=== PATIENT | female | born 1945 | race Caucasian/White ===

== ENCOUNTER 2020-04-28 22:42 | Emergency (ER) | payer MEDICARE, SELFPAY ==
[2020-04-28 22:55] VITALS: BP 181/83; PULSE 92; RESP 18; TEMP 36.4; O2SAT 98; BMI 32.3
--- NOTE | 2020-04-28 23:18 | W.ED.GENADLT ---
HPI - General Adult General: Chief complaint: Shortness of Breath/Dyspnea Stated complaint: possible sinus inf/ stuffed up/cant breath Time Seen by Provider: 04/28/20 23:09 History of Present Illness: HPI narrative: Is 3 weeks post positive Covid. Now complaining about sinus pressure drainage sore throat. Denies fever chills does nose is very stuffed up MD complaint: Sinus pressure Onset (ago): hour(s) Radiation: non-radiation Severity: moderate Relieving factors: none Associated symptoms: Reports no associated symptoms; Deny chest pain, dyspnea, headache(s), nausea, rash or vomiting Treatments prior to arrival: none Review of Systems Narrative: Was Covid +3 weeks ago. Const: Denies: fever(s), chills or body aches Eyes: Denies: change in vision or blurry vision ENMT: Reports: nasal congestion; Denies: throat pain Card: Denies: chest pain or dyspnea on exertion Resp: Denies: dyspnea, productive cough or non-productive cough GI: Denies: abdominal pain, nausea or vomiting Musc: Denies: extremity pain Skin/Breast: Denies: rash Neuro: Denies: headache(s) Psych: Denies: anxiety or depression Pardeep/Lymph: Denies: easy bruising Physical Exam Const: COMMON NORMALS: no acute distress, average body habitus and patient oriented x3 HENMT: COMMON NORMALS: normocephalic HEAD & SCALP: normal to inspection and normocephalic FACE & SINUS: normal facial exam and sinus tenderness frontal and ethmoid THROAT: posterior oropharynx normal and abnormal tonsil bilateral hypertrophy Eye: COMMON NORMALS: conjunctivae normal GENERAL EYE: appearance normal, both eyes and all related structures CONJUNCTIVA: Yes conjunctivae normal Neck/C-Spine: COMMON NORMALS: no JVD Chest: COMMONS NORMALS: normal inspection of the chest Resp: COMMON NORMALS: normal respiratory effort and clear to auscultation bilaterally AUSCULTATION: clear to auscultation bilaterally Cardio: COMMON NORMALS: no JVD, regular rate and regular rhythm RATE: regular rate RHYTHM: regular rhythm GI: COMMON NORMALS: Normal to inspection, nondistended, normoactive bowel sounds present Extremity: COMMON NORMALS: normal to inspection and full ROM Neuro: COMMON NORMALS: patient oriented x3 Course Vital Signs: Vital signs: Vital Signs Temperature 97.6 F 10/29/20 22:55 Pulse Rate 79 04/28/20 23:44 Respiratory Rate 16 04/28/20 23:44 Blood Pressure 164/78 04/28/20 23:44 Pulse Oximetry 95 04/28/20 23:44 Discharge Plan Discharge Patient Disposition: Home Clinical Impression: Sinusitis Qualifiers: Sinusitis location: ethmoidal Chronicity: acute Recurrence: non-recurrent Qualified Code(s): J01.20 - Acute ethmoidal sinusitis, unspecified Condition: Stable Prescriptions: New Augmentin 875-125 mg tablet 1 tab PO BID 14 Days Qty: 28 RF: 0 prednisone 10 mg tablet 10 mg PO DAILY Qty: 7 RF: 0 Discharge Orders: Discharge Order (Routine); Ordered 04/28/20 Ordered By: Jose Beckford Referrals: Miguel Dale MD [Primary Care Provider] - Discharge Diet: Usual diet Discharge Activity: Resume usual activity Patient Instructions: Acute Bacterial Rhinosinusitis (ED) Activity Restrictions/Additional Instructions: Follow-up with medical provider as directed. Take medications as prescribed. Return to the ER or your medical provider if condition worsens. Please read and understand discharge instructions. If any questions ask please. Your blood sugar might go up 30-40 points for next 7 days while on steroids. Use Afrin nose spray as directed on the label. Discharge Date/Time: 04/28/20 23:43 Coding Level of Care Code ED Home Health Aide for Gerardo Fwd Exam Comprehensive
[2020-04-28 23:38] VITALS: BP 159/88; PULSE 85; RESP 17; O2SAT 95
[2020-04-28] MEDS: oxymetazoline 0.05% Nasal Spray 15 mL 2 SPRAY NOSTRIL-B (23:39)
[2020-04-28] MEDS: predniSONE 20 mg Tablet 40 MG PO (23:39)
[2020-04-28] MEDS: amoxicillin-clav 875-125 mg Tablet 1 TAB PO (23:39)
[2020-04-28 23:44] VITALS: BP 164/78; PULSE 79; RESP 16; O2SAT 95
== END 2020-04-28 23:43 | disposition home or self-care (01) ==
PROVIDERS: Emergency Provider Nurse Practitioner Family; PCP Family Medicine
DX: J01.20 Acute ethmoidal sinusitis, unspecified (principal)
CPT/HCPCS: 12345; 99281; 99283; J7512

== ENCOUNTER 2021-03-20 11:14 | Outpatient (CLI) | payer MEDICARE, SELFPAY ==
--- NOTE | 2021-03-20 11:23 | MM_ITS ---
WS: [id number] RIGHT DIGITAL MAMMOGRAPHY WITH CAD CLINICAL INFORMATION: HX OF BREAST CA;LT MASTECTOMY COMPARISON: TECHNIQUE: 3 views of the right breast were obtained. FINDINGS: Scattered fibroglandular densities of the right breast. Stable punctate calcifications. Vascular calc ification. No suspicious focal mass, asymmetry, calcifications, or architectural distortion. No evidence of mary anne gnancy. MM/[place] [id number] IMPRESSION: BI-RADS: 2-Benign FOLLOW UP: 1 Year Follow-up Recommend return to annual diagnostic mammography.
== END 2021-03-20 11:15 | disposition home or self-care (01) ==
LOC: RADSHAW 11:21
PROVIDERS: PCP Family Medicine; Visit Provider Family Medicine
DX: Z85.3 Personal history of malignant neoplasm of breast (principal); Z90.12 Acquired absence of left breast and nipple
CPT/HCPCS: 77065

== ENCOUNTER 2021-03-31 09:55 | Outpatient (CLI) | payer MEDICARE, SELFPAY ==
--- NOTE | 2021-03-31 10:15 | MR_ITS ---
WS: [id number] MRI NECK WITH CONTRAST TECHNIQUE: Noncontrast axial T1, axial T2 FSE fat sat, coronal T2 fat sat, coronal T1, coronal T1 fat sat, sagittal T2 fat sat, plus contrast enhanced coronal, sagittal, and axial T1 fat sat images obta ined. CLINICAL INFORMATION: JAW PAIN COMPARISON: None. FINDINGS: Chronic lacunar infarct left cerebellum. Normal vascular flow voids at the skull base. Proximal 7th a nd 8th cranial nerves appear normal. Mild mucosal thickening in the paranasal sinuses. Small retentio n cyst left maxillary sinus. Mastoid air cells are well aerated. Prior resection or hypoplasia right parotid gland. Normal left parotid gland. Submandibular glands are normal. Normal parapharyngeal fat. No evidence of supraglottic or glottic mass. Small peripherally enhancing lesion in the left preepig lottic space measuring 6 mm. This can be further evaluated with direct visualization. Normal glottis and subglottic airway. Normal thyroid gland. A few slightly enlarged right level 2 cervical lymph nodes largest measuring 8 x 10 mm along the post erior right submandibular gland and carotid sheath. Additional normal appearing submandibular space l ymph nodes. No pathologic lymphadenopathy in the left neck. Normal bone marrow signal involving the right mandible. Normal thoracic inlet and supraclavicular regions bilaterally. Mild disc bulging cervical spine at C4-C5 and C5-C6. MR/MR orbit face neck wo/w* [id number] IMPRESSION: 1. Enlarged right level 2 cervical lymph nodes along the carotid sheath larges t measuring 8 x 10 mm. This is nonspecific and could be further evaluated with contrast-enhanced neck CT or PET/CT if suspicion for malignancy. 2. Peripheral enhancing T2 hyperintense small nodule in the left preepiglottic space. Recommend further evaluation with direct visualization. 3. Tongue base is normal in appearance. Normal glottis and subglottic airway. 4. 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 Normal left parotid gland. 5. Submandibular glands are normal in appearance. 6. Mild disc bulging C5-C6 and C6-C7 with mild central canal stenosis at C6-C7 . 7. Tiny chronic lacunar infarct left cerebellum. 8. Normal bone marrow signal in the right mandible. 9. Proximal 7th and 8th cranial nerves are normal in appearance.
[2021-03-31] MEDS: gadobenate dimeglumine 20 mL vial IV (11:38)
== END 2021-03-31 09:56 | disposition home or self-care (01) ==
PROVIDERS: PCP Family Medicine; Visit Provider Specialist
DX: R68.84 Jaw pain (principal); I63.9 Cerebral infarction, unspecified; M51.26 Other intervertebral disc displacement, lumbar region; M48.02 Spinal stenosis, cervical region
CPT/HCPCS: 70543; A9577

== ENCOUNTER 2021-04-19 10:43 | Outpatient (CLI) | payer MEDICARE, SELFPAY ==
--- NOTE | 2021-04-19 11:00 | CT_ITS ---
WS: [id number] CT NECK WITH CONTRAST HISTORY: LOCALIZED ENLARGED LYMPH NODES, JAW PAIN TECHNIQUE: Contiguous 5 mm axial images are performed through the neck with intravenous contrast. Sag ittal and coronal reformats are also submitted. All CT scans at [facility] use at least one o f these dose optimization techniques: automated exposure control; mA and/or kV adjustment per patient size (includes targeted exams where dose is matched to clinical indication); or iterative reconstruc tion. CONTRAST: CONTRAST: Visipaque 320; 95 mL IV. DLP: 881.81 mGycm COMPARISON: MRI neck 03/31/2021. Nasopharynx, oropharynx, hypopharynx and larynx are unremarkable. No soft tissue masses or abnormal e nhancement. Torus tubarius and fossa of Rosenmuller and parapharyngeal fat are normal. Small benign cervical chain lymph nodes are identified. The number of lymph nodes is slightly increas ed. The shape is normal. The largest lymph node measures 7 mm and level 2A on the RIGHT. Corresponds to the finding seen on the recent MRI. No adjacent inflammation. These may be benign reactive lymph n odes. Small caliber atrophic heterogeneous RIGHT thyroid. Normal-appearing LEFT thyroid. Submandibular glan ds are normal. Absent RIGHT parotid gland. No history of prior surgery. Suspect surgical removal of t he RIGHT parotid. The LEFT parotid gland is normal. Degenerative spondylitic changes in the mid cervical spine. No fractures. Mild plaque within the intracranial carotid arteries. Small amount of calcified plaque at the bifurca tions along the cervical carotid arteries. Atherosclerosis of the aortic arch. Small benign-appearing prevascular lymph nodes. Visualized paranasal sinuses and mastoid air cells are normal. Lung apices are clear. CT/CT neck w con* [id number] IMPRESSION: 1. Subcentimeter bilateral cervical chain lymph nodes. These lymph nodes are n ot particularly enlarged and the shape is normal. Suspect these are probably mi ldly reactive lymph nodes. 2. RIGHT parotid gland is absent. 3. Moderate atherosclerotic plaque within the visualized aortic arch and carot id arteries.
[2021-04-19 11:31] LABS: Blood Urea Nitrogen 13 mg/dL (8-23)
[2021-04-19] MEDS: iodixanol 320 mg/mL 100mL Btl IV (11:44)
== END 2021-04-19 10:44 | disposition home or self-care (01) ==
PROVIDERS: PCP Family Medicine; Visit Provider Otolaryngology
DX: R59.0 Localized enlarged lymph nodes (principal); R68.84 Jaw pain; Z90.49 Acquired absence of other specified parts of digestive tract; I65.23 Occlusion and stenosis of bilateral carotid arteries
CPT/HCPCS: 70491; 82565; 84520; Q9967

== ENCOUNTER 2021-04-28 15:23 | Outpatient (CLI) | payer MEDICARE, SELFPAY ==
--- NOTE | 2021-04-28 15:31 | XR_ITS ---
WS: [id number] Exam: XR DEXA axial skeleton* [id number] Date/Time of Exam: 04/28/2021 3:33 PM Reason For Exam: POST MENOPAUSAL DEXA BONE DENSITOMETRY [employer] The L1-L4 bone mineral density measures 1.298 g/cm2. This corresponds to a T score of 1.0 and Z score of 1.6. Left femoral neck bone mineral density measures 0.788 g/cm2. This corresponds to T score of -1.7 and Z score of -0.8. Right femoral neck bone mineral density measures 0.842 g/cm2. This corresponds to a T score of -1.3 a nd Z score of -0.4. Mean femoral neck bone mineral density measures 0.815 g/cm2. This corresponds to a T score of -1.5 an d Z score of -0.6 XR/XR DEXA axial skeleton* [id number] IMPRESSION: Bone mineral density lies in the osteopenic range. Refer to detailed summary.
== END 2021-04-28 15:24 | disposition home or self-care (01) ==
PROVIDERS: PCP Family Medicine; Visit Provider Nurse Practitioner
DX: Z78.0 Asymptomatic menopausal state (principal)
CPT/HCPCS: 77080

== ENCOUNTER 2022-08-22 07:00 | Inpatient (IN) | payer MEDICARE, SELFPAY ==
[2022-08-22] VITALS (72 sets, daily range): BP systolic 152–198; BP diastolic 68–97; PULSE 78–124; RESP 11–35; TEMP 37.2–37.4; O2SAT 77–100; BMI 37.1; BMI 34.2
--- NOTE | 2022-08-22 07:25 | XR_ITS ---
WS: [id number] Exam: XR chest 1V portable [id number] Date/Time of Exam: 08/22/2022 7:27 AM Reason For Exam: dyspnea/cough No previous exams. Extensive interstitial and airspace opacities throughout both lungs. Heart size is normal for techniq ue. There may be some widening of the mediastinum on the right. Left breast may be surgically absent. No pneumothorax or pleural effusion. Reticular nodular densities throughout both lungs. Pulmonary va scular congestion. XR/XR chest 1V portable [id number] IMPRESSION: 1. Diffuse interstitial and airspace opacities throughout both lungs. Vascular congestion suggesting there is likely some acute pulmonary edema present. Other considerations would include interstitial pneumonia and superimposed chronic p ulmonary changes. Lymphatic metastatic disease could also have this appearance. 2. There may be some widening of the mediastinum on the right. Mediastinal mass or lymphadenopathy might be considered.
--- NOTE | 2022-08-22 07:26 | ECG_ITS ---
[facility] Test Date: 2022-08-22 Pat Name: Thelma Rm Department: Room: Gender: Female Hand Rounder: : 1945 Requested By: Song Flores Order Number: [id number] Juliano MD: Satinder Mistry M.D. Measurements Intervals Breeding Rate: 109 P: 77 VT: 161 QRS: 63 QRSD: 77 T: 49 QT: 303 QTc: 409 Interpretive Statements SINUS TACHYCARDIA POSSIBLE LEFT ATRIAL ENLARGEMENT [-0.1mV P-WAVE IN V1/V2] LEFT VENTRICULAR HYPERTROPHY AND ST-T CHANGE [VOLTAGE CRITERIA PLUS ST/T ABNORMALITY] No previous ECG available for comparison Electronically Signed On 08-22-2022 10:24:33 [employer] by Satinder Mistry M.D. [id number]
--- NOTE | 2022-08-22 07:26 | ED_ITS ---
HPI - SOB/Dyspnea General: Chief Complaint: Shortness of Breath/Dyspnea Stated Complaint: SOB Time Seen by Provider: 08/22/22 07:04 Source: patient Mode of arrival: ambulatory History of Present Illness: HPI Narrative: 77-year-old female presents emergency room with shortness of breath x 2 days. On arrival here patient is noted to have an O2 sat at 76% and be tachycardic. She reports that she has had increasing shortness of breath over the last few days. She recently had a trip [place] and then took [place]. She has no history of atrial fibrillation congestive heart failure coronary artery disease or cardiomyopathy. She does have a known history of diabetes mellitus. She states her blood sugars been high. She is on a GLP-1 and oral medications for her diabetes. She denies ever having any kind of stress testing or evaluation for cardiac disease. She has a low-grade fever on arrival here and has had a increasing cough with the shortness of breath for the last 2 days. Patient is not a smoker and has no history of chronic respiratory illness. MD elicited complaint: shortness of breath Onset (ago): day(s) (2) Timing: constant Severity: severe Exacerbating factors: exertion, coughing and talking Relieving factors: oxygen and rest Associated symptoms: Reports cough; Deny abdominal pain, chest congestion, chest pain, diaphoresis, dizziness, extremity pain, fever(s), hemoptysis, lightheadedness, myalgias, nausea, orthopnea, palpitations, paresthesias, polydipsia, polyuria, rash, sense of impending doom, syncope or vomiting Treatment prior to arrival: none Review of Systems Const: Reports: fatigue and malaise; Denies: fever(s), chills or diaphoresis ENMT: Denies: throat pain, ear or mastoid pain, nasal discharge or nasal c ongestion Card: Denies: chest pain, palpitations, lightheadedness, syncope or orthopnea Resp: Reports: dyspnea and non-productive cough; Denies: hemoptysis or chest congestion GI: Denies: abdominal pain, nausea or vomiting : Denies: flank pain, difficulty voiding, dysuria, urinary frequency or urinary urgency Musc: Denies: extremity pain Skin/Breast: Denies: rash or pruritus Neuro: Denies: dizziness Endo: Denies: polyuria or polydipsia PFSH ED PFSH: Medical History (Updated 08/22/22 @ 12:29 by Gomez Kaufman MD) Breast cancer Diabetes mellitus Hyperlipidemia Hypertension Hypothyroidism Lymphoma History of cutaneous lymphoma, 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 Surgical History (Updated 08/22/22 @ 09:53 by Gomez Kaufman MD) H/O left mastectomy History of carpal tunnel surgery History of cholecystectomy History of hysterectomy Family History (Updated 08/22/22 @ 09:54 by Gomez Kaufman MD) Other Diabetes Hypertension Social History (Updated 08/22/22 @ 09:54 by Gomez Kaufman MD) Smoking and tobacco status: never smoked Alcohol intake: never Physical Exam Const: GENERAL APPEARANCE: cooperative and comfortable ORIENTATION/CONSCIOUSNESS: Yes awake, Yes oriented to person, Yes oriented to place and Yes oriented to time HENMT: COMMON NORMALS: normocephalic, atraumatic and hearing grossly normal bilaterally HEAD & SCALP: normocephalic and atraumatic Resp: AUSCULTATION: crackles and diminished lung sounds bilateral in the lower lung garcía Cardio: COMMON NORMALS: regular rhythm and No murmurs present (Cardio) RATE: tachycardic RHYTHM: regular rhythm GI: COMMON NORMALS: Soft to palpation and No hepatosplenomegaly present AUSCULTATION: Yes normoactive bowel sounds PALPATION: Yes Soft to palpation, No Tenderness to palpation present (GI), No Guarding due to palpation present (GI) and Yes No hepatosplenomegaly present Extremity: COMMON NORMALS: normal to inspection, capillary refill normal and no calf tenderness GENERAL: Yes edema (+2 lower extremities) Neuro: SENSORIUM/ORIENTATION: Yes oriented to person, Yes oriented to place and Yes oriented to time Skin: COMMON NORMALS: no rashes or lesions noted GENERAL SKIN EXAM: no rashes or lesions noted Course Vital Signs: Vital signs: Vital Signs Temperature 99.4 F 08/22/22 07:02 Pulse Rate 100 08/22/22 12:00 Respiratory Rate 28 H 08/22/22 12:00 Blood Pressure 164/73 08/22/22 12:00 Pulse Oximetry 96 08/22/22 12:00 Oxygen Delivery Me thod 08/22/22 10:10 Oxygen Flow Rate 4 08/22/22 10:10 MDM - SOB/Dyspnea Medical Decision Making Patient acutely hypoxic on arrival. She is given Lasix 40 mg she is clinically she appears fluid overloaded. Chest x-ray has appearance of COVID-19. CTA of the chest done due to elevated D-dimer also consistent with COVID-19 she has a history of cutaneous lymphoma there is some increased lymph nodes in the chest but these may be reactive in discussing with the radiologist. Her hypoxic deficit has recovered nicely with nasal cannula and she is resting comfortably and heart tachycardia is also improved. Her COVID did come back positive. Discussed Dr. Watt for hospitalist service patient has been admitted Medical Records I reviewed the patient's medical records. Lab Data I reviewed the patient's lab results. 08/22/22 07:32 08/22/22 07:32 Labs/Radiology: Radiology Impressions Chest X-Ray 08/22/22 07:25 IMPRESSION: 1. Diffuse interstitial and airspace opacities throughout both lungs. Vascular c ongestion suggesting there is likely some acute pulmonary edema present. Other considerations would include interstitial pneumonia and superimposed chronic pulmonary changes. Lymphatic metastatic disease could also have this appearance. 2. There may be some widening of the mediastinum on the right. Mediastinal mass or lymphadenopathy might be considered. Chest CTA 08/22/22 09:07 IMPRESSION: 1. Proximal main pulmonary arteries are normal. No evidence of pulmonary embolus. 2. Small bilateral pleural effusions with compressive atelectasis in the lung bases. 3. Diffuse hazy groundglass infiltrates throughout both lungs with interlobular septal thickening and patchy airspace infiltrates. Findings suspicious for viral pneumonia. Consider Covid 19 pneumonia. Interstitial thickening likely due to superimposed edema. Lymphangitic metastasis not entirely excluded. Recommend follow-up to resolution. 4. Bulky peribronchial and subcarinal lymphadenopathy. Prominent anterior mediastinal lymph nodes. 5. 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 This is present on the PET/CT 2013 and is similar in appearance. Notified Song Jimenez DO at 08/22/2022 10:33 AM. Laboratory Results WBC 13.8 10^3/uL (4.0-10.0) H 08/22/22 07:32 RBC 4.27 10^6/uL (4.1-5.3) 08/22/22 07:32 Hgb 12.5 g/dL (11.5-15.3) 08/22/22 07:32 Hct 39.8 % (37.0-47.0) 08/22/22 07:32 MCV 93.2 fl (81-99) 08/22/22 07:32 MCH 29.3 pg (28.0-34.0) 08/22/22 07:32 MCHC 31.4 g/dL (30.0-36.0) 08/22/22 07:32 RDW 14.8 % (12.1-15.1) 08/22/22 07:32 Plt Count 213 10^3/cmm (130-400) 08/22/22 07:32 MPV 10.6 fL (7.4-10.4) H 08/22/22 07:32 Neut % (Auto) 80.1 % 08/22/22 07:32 Lymph % (Auto) 9.8 % 08/22/22 07:32 Gaston % (Auto) 8.0 % 08/22/22 07:32 Eos % (Auto) 1.2 % 08/22/22 07:32 Baso % (Auto) 0.4 % 08/22/22 07:32 Neut # (Auto) 11.02 10^3/uL (1.8-7.7) H 08/22/22 07:32 Lymph # (Auto) 1.4 10^3/uL (0.8-4.8) 08/22/22 07:32 Gaston # (Auto) 1.1 10^3/uL (0.2-0.9) H 08/22/22 07:32 Eos # (Auto) 0.2 10^3/uL (0.0-0.8) 08/22/22 07:32 Baso # (Auto) 0.1 10^3/uL (0.0-0.1) 08/22/22 07:32 Nucleated RBC % (auto) 0 % 08/22/22 07:32 Nucleated RBCs # 0.0 /100WBC 08/22/22 07:32 D-Dimer 2.03 ug/mIFEU (0-0.59) H 08/22/22 07:32 Specimen Type Arterial 08/22/22 07:35 Sample Site Brachial, left 08/22/22 07:35 ABG pH 7.40 (7.35-7.45) 08/22/22 07:35 ABG pCO2 36.7 mmHg (35-45) 08/22/22 07:35 ABG pO2 75.7 mmHg (80.0-100.0) L 08/22/22 07:35 ABG HCO3 22.5 mmol/L (22-26) 08/22/22 07:35 ABG O2 Saturation 95.9 08/22/22 07:35 ABG Base Excess -2.0 mmol/L (-2.0-2.0) 08/22/22 07:35 Louis Test N/a 08/22/22 07:35 A-a O2 Gradient 20.6 mmHg (5-10) H 08/22/22 07:35 Hematocrit 38.4 % (37-47) 08/22/22 07:35 Hgb O2 Saturation 93.4 % (95-100) L 08/22/22 07:35 Carboxyhemoglobin 2.0 %THgb (0.4-20.1) 08/22/22 07:35 Methemoglobin 0.5 % (0.4-1.5) 08/22/22 07:35 Total Hemoglobin 12.5 g/dL (12-16) 08/22/22 07:35 Sodium 137.0 mmol/L (131-143) 08/22/22 07:35 Potassium 4.0 mmol/L (3.5-5.0) 08/22/22 07:35 Glucose 255.0 mg/dL (70-115) H 08/22/22 07:35 Ionized Calcium 1.2 mmol/L (1.1-1.4) 08/22/22 07:35 O2 Delivery Device Nc 08/22/22 07:35 O2 Liters/Min 5.0 % 08/22/22 07:35 FiO2 40.0 % 08/22/22 07:35 Pig Machine Supervisor ID Amh 08/22/22 07:35 Sodium 135 mmol/L (136-145) L 08/22/22 07:32 Potassium 4.2 mmol/L (3.5-5.1) 08/22/22 07:32 Chloride 99 mmol/L (98-107) 08/22/22 07:32 Carbon Dioxide 21 mmol/L (22-29) L 08/22/22 07:32 Anion Gap 19.2 (5-19) H 08/22/22 07:32 BUN 13 mg/dL (8-23) 08/22/22 07:32 Creatinine 0.7 mg/dL (0.5-0.9) 08/22/22 07:32 GFR Calculation Not Reportable 08/22/22 07:32 Glucose 259 mg/dL (65-115) H 08/22/22 07:32 Calculated Osmolality 289 mOsm/kg (285-295) 08/22/22 07:32 Calcium 8.9 mg/dL (8.5-10.5) 08/22/22 07:32 Total Bilirubin 2.1 mg/dL (0.15-1.2) H 08/22/22 07:32 AST 18 U/L (0-32) 08/22/22 07:32 ALT 22 U/L (0-33) 08/22/22 07:32 Alkaline Phosphatase 84 U/L (35-105) 08/22/22 07:32 Troponin T Baseline 10 ng/L (0-10) 08/22/22 07:32 Troponin T 120 Minute 15.35 ng/L (0-10) H 08/22/22 10:15 Delta Troponin T 5.35 ABS# (0-10) 08/22/22 10:15 C-Reactive Protein 192.6 mg/L (0.0-4.9) H 08/22/22 10:15 NT-Pro-B Natriuret Pep 1729 pg/mL (0-450) H 08/22/22 07:32 Total Protein 7.6 g/dL (6.6-8.7) 08/22/22 07:32 Albumin 3.7 g/dL (3.5-5.2) 08/22/22 07:32 Globulin 3.9 g/dL (1.3-4.6) 08/22/22 07:32 Procalcitonin 0.27 ng/mL (0-0.5) 08/22/22 07:32 Coronavirus 229E (PCR) Not detected (NOT DETECT) 08/22/22 08:00 SARS-CoV-2 (PCR) Detected (NOT DETECT) A 08/22/22 08:00 Discharge Plan Discharge Patient Disposition: Admitted As Inpatient Clinical Impression: Pneumonia due to COVID-19 virus, Acute respiratory failure with hypoxemia, Hypertension, Elevated brain natriuretic peptide (BNP) level, Diabetes mellitus Prescriptions: No Action latanoprost 0.005 % drops 1 drp ophthalmic (eye) BEDTIME oxybutynin chloride 10 mg tablet extended release 24hr 10 mg PO DAILY metoprolol succinate 200 mg tablet extended release 24 hr 200 mg PO BEDTIME glipizide 10 mg tablet 10 mg PO DAILY clonidine HCl 0.3 mg tablet 0.3 mg PO BID simvastatin 10 mg tablet 10 mg PO DAILY pioglitazone 45 mg tablet 45 mg PO DAILY levothyroxine 88 mcg tablet 88 mcg PO DAILY amlodipine 10 mg tablet 10 mg PO DAILY lisinopril 40 mg tablet 40 mg PO BID metformin 500 mg tablet extended release 24 hr 1,000 mg PO BID Rybelsus 7 mg tablet 7 mg PO DAILY Referrals: Miguel Dale MD [Primary Care Provider] - Coding Level of Care Code ED Equipment Application Specialist for Gerardo Ladd
[2022-08-22 07:46] LABS: ABG PCO2 36.7 mmHg (35-45); Alveolar-Arterial Oxygen Gradi 20.6 mmHg (5-10); Arterial Blood Gas Hematocrit 38.4 % (37-47); Blood Gas Operator Identificat AMH; Blood Gas Sample Site Brachial, left; Blood Gas Sample Type Arterial; HCO3 ABG 22.5 mmol/L (22-26); HGB O2 Sat 93.4 % (95-100); Ionized Calcium Level - ABG 1.2 mmol/L (1.1-1.4); Methemoglobin 0.5 % (0.4-1.5); Oxygen Device NC; Oxygen Saturation ABG 95.9; PO2 ABG 75.7 mmHg (80.0-100.0); Total Hemoglobin 12.5 g/dL (12-16)
[2022-08-22 08:00] LABS: Basophils # 0.1 10^3/uL (0.0-0.1); Basophils % 0.4 %; Eosinophils # 0.2 10^3/uL (0.0-0.8); Eosinophils % 1.2 %; Hematocrit 39.8 % (37.0-47.0); Hemoglobin 12.5 g/dL (11.5-15.3); Lymphocytes # 1.4 10^3/uL (0.8-4.8); Lymphocytes % 9.8 %; Mean Corpuscular HGB Conc 31.4 g/dL (30.0-36.0); Mean Corpuscular Hemoglobin 29.3 pg (28.0-34.0); Mean Corpuscular Volume 93.2 fl (81-99); Mean Platelet Volume 10.6 fL (7.4-10.4); Monocytes # 1.1 10^3/uL (0.2-0.9); Neutrophils # 11.02 10^3/uL (1.8-7.7); Neutrophils % 80.1 %; Nucleated Red Blood Cells % 0 %; Platelet Count 213 10^3/cmm (130-400); Red Blood Count 4.27 10^6/uL (4.1-5.3); Red Cell Distribution Width 14.8 % (12.1-15.1); White Blood Count 13.8 10^3/uL (4.0-10.0)
[2022-08-22 08:21] LABS: Troponin(5th) Baseline 10 ng/L (0-10)
[2022-08-22 08:22] LABS: D Dimer 2.03 ug/mIFEU (0-0.59)
[2022-08-22 08:31] LABS: Alanine Aminotransferase 22 U/L (0-33); Albumin Level 3.7 g/dL (3.5-5.2); Alkaline Phosphatase 84 U/L (35-105); Anion Gap 19.2 (5-19); Aspartate Amino Transferase 18 U/L (0-32); Blood Urea Nitrogen 13 mg/dL (8-23); Calcium 8.9 mg/dL (8.5-10.5); Carbon Dioxide 21 mmol/L (22-29); Chloride 99 mmol/L (98-107); Globulin 3.9 g/dL (1.3-4.6); Glucose 259 mg/dL (65-115); NT Pro B Type Natriuretic Pept 1729 pg/mL (0-450); Osmolality Calculated 289 mOsm/kg (285-295); Potassium 4.2 mmol/L (3.5-5.1); Sodium 135 mmol/L (136-145); Total Bilirubin 2.1 mg/dL (0.15-1.2); Total Protein 7.6 g/dL (6.6-8.7)
[2022-08-22] MEDS: FUROsemide 10 mg/mL SDV 4mL 40 MG IVP (08:54)
--- NOTE | 2022-08-22 09:07 | CT_ITS ---
WS: [id number] CTA OF THE CHEST WITH PULMONARY EMBOLISM PROTOCOL TECHNIQUE: High-resolution contrast enhanced CTA of the chest with coronal and sagittal reformatted i mages with pulmonary embolism protocol. MIP images are also reviewed. CLINICAL INFORMATION: elevated ddimer COMPARISON: None. DLP: 342.[address] scans at [facility] use at least one of these dose optimization techniques: automated e xposure control; mA and/or kV adjustment per patient size (includes targeted exams where dose is matc hed to clinical indication); or iterative reconstruction. FINDINGS: Proximal main pulmonary arteries are normal. Normal segmental and subsegmental pulmonary arteries. No evidence of pulmonary embolus. Cardiomegaly. Normal caliber thoracic aorta. Aortic calcification. Prominent mediastinal lymph nodes. RIGHT greater than LEFT hilar lymphadenopathy. Peribronchial and Subcarinal lymphadenopathy. Small b ilateral pleural effusions. Compressive atelectasis in the lung bases. Diffuse hazy groundglass infil trates throughout both lungs with air trapping. Scattered associated patchy infiltrates. Diffuse inte rstitial thickening likely due to edema. Lymphangitic metastasis not entirely excluded Thoracic kyphosis. Ankylosis thoracic spine. Surgical clips LEFT axilla. Hepatomegaly partially visualized. Small esophageal hiatal hernia. Thickening of the LEFT adrenal gla nd. Splenic artery calcification. Splenic artery peripherally calcified aneurysm at the splenic hilum measuring 2.2 x 2.[address]/CT angio chest PE protcl [id number] IMPRESSION: 1. Proximal main pulmonary arteries are normal. No evidence of pulmonary embol us. 2. Small bilateral pleural effusions with compressive atelectasis in the lung bases. 3. Diffuse hazy groundglass infiltrates throughout both lungs with interlobula r septal thickening and patchy airspace infiltrates. Findings suspicious for vi ral pneumonia. Consider Covid 19 pneumonia. Interstitial thickening likely due to superimposed edema. Lymphangitic metastasis not entirely excluded. Recommen d follow-up to resolution. 4. Bulky peribronchial and subcarinal lymphadenopathy. Prominent anterior medi astinal lymph nodes. 5. 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 T his is present on the PET/CT 2013 and is similar in appearance. Notified Song Jimenez DO at 08/22/2022 10:33 AM.
--- NOTE | 2022-08-22 09:34 | ECG_ITS ---
[facility] Test Date: 2022-08-22 Pat Name: Thelma Rm Department: Room: Gender: Female Activity Leader: : 1945 Requested By: Song Flores Order Number: [id number] Juliano MD: Satinder Mistry M.D. Measurements Intervals [place] Rate: 92 P: 70 DE: 162 QRS: 53 QRSD: 72 T: 44 QT: 330 QTc: 409 Interpretive Statements SINUS RHYTHM MINIMAL VOLTAGE CRITERIA FOR LVH, CONSIDER NORMAL VARIANT [MEETS CRITERIA IN ONE OF: R(aVL), S(V1), R(V5), R(V5/V6)+S(V1)] Compared to ECG 08/22/2022 07:37:51 Sinus tachycardia no longer present ST (T wave) deviation no longer present Electronically Signed On 08-22-2022 10:27:50 BRANCH OPERATIONS SPECIALIST by Satinder Mistry M.D. [id number]
--- NOTE | 2022-08-22 09:50 | PM.HP ---
Providers/Chief Complaint Admitting Physician: Gomez Kaufman MD, hospitalist Primary Care Provider: Miguel Dale MD Chief Complaint: SOB History of Present Illness Thelma Rm is a 77 year old female who presents with shortness of breath noted on Saturday. She states she is felt short of breath, having some chills and subjective fever, rare cough that is nonproductive. She denies any chest pain. She has not had any vomiting or diarrhea. She recently went on a cruise with her , in the [place] visiting [place], [place], [place]. She does not know of any illness that was present on the cruise ship. She reports her lower extremity swelling that typically goes away after sleeping at night has been a little worse after the trip. She did not fly during this trip. During her emergency department visit she had blood cultures drawn, received oxygen, and received 40 mg of Lasix IV Review of Systems General: Reports: 10 or more systems reviewed and unremarkable except in HPI and below Const: Reports: fever(s), chills and fatigue Eyes: Denies: change in vision ENMT: Denies: throat pain Card: Denies: chest pain Resp: Reports: dyspnea; Denies: productive cough GI: Denies: abdominal pain, nausea, vomiting, hematochezia or melena : Denies: dysuria Skin/Breast: Reports: rash (Reports rash right lower extremity) Medications/Allergies Home Medications Medication Instructions Recorded Confirmed Last Taken Type amlodipine 10 mg tablet 10 mg PO DAILY 08/22/22 08/22/22 08/22/22 History clonidine HCl 0.3 mg tablet 0.3 mg PO BID 08/22/22 08/22/22 08/22/22 History glipizide 10 mg tablet 10 mg PO DAILY 08/22/22 08/22/22 08/22/22 History latanoprost 0.005 % eye drops 1 drp ophthalmic (eye) BEDTIME 08/22/22 08/22/22 08/21/22 History levothyroxine 88 mcg tablet 88 mcg PO DAILY 08/22/22 08/22/22 08/22/22 History lisinopril 40 mg tablet 40 mg PO BID 08/22/22 08/22/22 08/22/22 History metformin 500 mg tablet,extended 1,000 mg PO BID 08/22/22 08/22/2208/22/23 History release 24 hr metoprolol succinate 200 mg 200 mg PO BEDTIME 08/22/22 08/22/22 08/21/22 History tablet,extended release 24 hr oxybutynin chloride 10 mg 10 mg PO DAILY 08/22/22 08/22/22 08/22/22 History tablet,extended release 24 hr pioglitazone 45 mg tablet 45 mg PO DAILY 08/22/22 08/22/22 08/22/22 History semaglutide 7 mg tablet (Rybelsus) 7 mg PO DAILY 08/22/22 08/22/22 08/22/22 History simvastatin 10 mg tablet 10 mg PO DAILY 08/22/22 08/22/22 08/21/22 History Allergies Allergy/AdvReac Type Severity Reaction Status Date / Time No Known Allergies Allergy Verified 04/28/20 23:04 PFSH Acute PFSH: Medical History (Updated 08/22/22 @ 12:29 by Gomez Kaufman MD) Breast cancer Diabetes mellitus Hyperlipidemia Hypertension Hypothyroidism Lymphoma History of cutaneous lymphoma, 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 Surgical History (Updated 08/22/22 @ 09:53 by Gomez Kaufman MD) H/O left mastectomy History of carpal tunnel surgery History of cholecystectomy History of hysterectomy Family History (Updated 08/22/22 @ 09:54 by Gomez Kaufman MD) Other Diabetes Hypertension Social History (Updated 08/22/22 @ 09:54 by Gomez Kaufman MD) Smoking and tobacco status: never smoked Alcohol intake: never Vitals/I&O/Wt Last Vital Signs Temp 99.4 F 08/22/22 07:02 Pulse 91 08/22/22 08:40 Resp 23 H 08/22/22 08:40 BP 152/69 08/22/22 08:40 Pulse Ox 96 08/22/22 08:40 O2 Del Method 08/22/22 08:05 O2 Flow Rate 6 08/22/22 08:05 Weight last 48 hrs Weight 104.326 kg Physical Exam Narrative: General exam is a white female, on 6 L of oxygen with adequate saturation in no distress HEENT: Atraumatic and normocephalic. Oropharynx clear Neck is supple no lymphadenopathy thyromegaly Cardiovascular regular rate and rhythm, borderline tachycardic, no murmur Lungs bibasilar crackles left greater than right. No wheezes Abdomen is soft, positive bowel sounds. No obvious organomegaly exam was deferred Extremities 1+ edema bilaterally Skin small erythematous macular rash right lower extremity. Neuro no obvious focal deficits Initial troponin normal Data 08/22/22 07:32 08/22/22 07:32 Other Labs: Dimer is 2.03 ABG demonstrates pH 7.4, PCO2 37, PO2 76 on 40% FiO2 LFTs are normal BNP elevated at 1729 Bilirubin slightly elevated 2.1, rest of LFTs normal Albumin 7.6 COVID PCR pending. Now back in positive CTA ordered Blood cultures were drawn EKG by my read demonstrates sinus tachycardia with rate of about 110. Normal axis. Biphasic P wave in V1 possible left atrial enlargement. No significant ST or T wave changes. Chest x-ray by my read demonstrates diffuse interstitial infiltrate, some calcification in the aorta, minor amount of fluid right fissure, tata left breast area CTA of chest demonstrates no pulmonary artery embolism. Diffuse hazy infiltrates are present both lungs suspicious for viral pneumonia. Some lymphadenopathy is noted. Partially calcified splenic artery aneurysm is noted, which was previously noted in 2014 and essentially unchanged. I reviewed the CT as well. Micro: Microbiology 08/22/22 08:28 Blood Culture - Preliminary Blood SPECIMEN COLLECTED 08/22/22 08:33 Blood Culture - Preliminary Blood SPECIMEN COLLECTED A&P Assessment and plan (1) Acute respiratory failure with hypoxemia: Patient presents with acute respiratory failure, currently requiring 6 L of oxygen. (2) Pneumonia due to COVID-19 virus: CTA no pulmonary embolism. Consistent with COVID. COVID PCR positive Initiate remdesivir Dexamethasone 6 mg IV every 6 hours Pulmonary toilet Acapella Sleep prone as much as possible Procalcitonin stable checked and negative. Doubt bacterial infection at this time. Reevaluate daily. Lasix 40 mg IV given x1. CBC and CMP in the morning (3) Diabetes mellitus: Sliding scale insulin (4) Hypertension: Continue home medications (5) Elevated brain natriuretic peptide (BNP) level: BNP elevated and evidence of peripheral edema Lasix 40 mg IV given x1 Repeat BMP in the morning Check echocardiogram Plan Multiple other medical problems as outlined in past medical history Full code Lovenox for DVT prophylaxis Attestations Medical Necessity Statement*: Will need greater than 2 midnight stay for evaluation and treatment of acute respiratory failure secondary COVID-19 pneumonia requiring inpatient treatment Diagnoses Acute respiratory failure with hypoxemia J96.01 Pneumonia due to COVID-19 virus U07.1; J12.82 Diabetes mellitus E11.9 Hypertension I10 Elevated brain natriuretic peptide (BNP) level R79.89 Time Spent (min) 51
[2022-08-22] MEDS: iohexol 350 mg/mL 500 mL Btl (per mL) IV (10:02)
--- NOTE | 2022-08-22 10:40 | PC.NURSE ---
inquired with lab on covid pcr results, mill laborer stated that test failed to analyze first time, is now rerunning with 1 hour 21 minutes remaining
[2022-08-22 10:41] LABS: Troponin 5 2HR 15.35 ng/L (0-10); Troponin 5 2HR Delta 5.35 ABS# (0-10)
[2022-08-22 10:43] LABS: C Reactive Protein 192.6 mg/L (0.0-4.9)
--- NOTE | 2022-08-22 10:55 | USCV_ITS ---
Thelma Rm Age: 77 Gender: F : 1945 Exam Date: 08/22/2022 12:06 Ordering Phys: Gomez Kaufman MD Technologist: JULITO [place] [facility] [place]: ELEVATED BNP, COVID BP: 164 / 73 HR: 98 Rhythm: Sinus Technical Quality: Adequate MEASUREMENTS (Male / Female) Normal Values 2D ECHO LVOT Diameter 2.0 cm LV Ejection Fraction MOD 2C 56.7 % LV Ejection Fraction 2C AL 58.1 % LA Diameter 3.4 cm LA Width 3.5 cm LA Height 5.0 cm RA Width 3.1 cm RA Height 4.5 cm Aorta at Sinotubular Diameter 2.0 cm IVC Diameter 1.8 cm M-MODE Aortic Annulus Diameter 2.5 cm LA Ao Ratio MM 1.3 MV E Point Septal Separation 0.5 cm DOPPLER AV Peak Velocity 210.0 cm/s LVOT Peak Velocity 129.0 cm/s AV Area Cont Eq vti 2.1 cm squared AV Area Cont Eq pk 2.0 cm squared MV Peak Velocity 167.0 cm/s MV Area PHT 5.0 cm squared Mitral E to A Ratio 1.3 MV E' Velocity 75.5 cm/s Mitral E to MV E' Ratio 12.9 Mitral E to LV E' Lateral Ratio 14.7 Mitral E to LV E' Septal Ratio 11.7 TR Peak Velocity 339.9 cm/s TR Peak Gradient 46.2 mmHg TR Mean Velocity 312.7 cm/s TR Mean Gradient 39.0 mmHg TR Velocity Time Integral 95.1 cm TV Peak E Velocity 97.0 cm/s Right Atrial Pressure 3.0 mmHg Pulmonary Artery Systolic Pressu 49.2 mmHg PV Peak Velocity 110.0 cm/s FINDINGS Left Ventricle Normal left ventricular size and systolic function, EF 56 %. No regional wall motion abnormalities. Grade III/IV diastolic dysfunction (restrictive filling pattern), severely elevated filling pressures. Right Ventricle The right ventricle is normal in size and function. Right Atrium Mildly increased right atrial size. Left Atrium Mildly increased left atrial size. Mitral Valve Mild to moderate mitral valve regurgitation. Thickened mitral valve. Aortic Valve Trace to mild aortic valve regurgitation. Tricuspid Valve Trace to mild tricuspid valve regurgitation. Pulmonic Valve Pulmonic valve not well visualized. Pericardium Normal pericardium without effusion. Aorta Normal ascending aorta dimension. IVC Normal inferior vena cava. CONCLUSIONS Normal left ventricular size and systolic function, EF 56 %. No regional wall motion abnormalities. Grade III/IV diastolic dysfunction (restrictive filling pattern), severely elevated filling pressures. Mild to moderate mitral valve regurgitation. Thickened mitral valve. Mild biatrial enlargement. Trace to mild aortic valve regurgitation. Trace to mild tricuspid valve regurgitation. There is no pericardial effusion. There are no intracardiac masses. No similar previous studies are available for comparison. Dr Leatha Franz MD [facility] (Electronically Signed) Final Date: 22 August 2022 18:55 S
[2022-08-22 11:34] LABS: Procalcitonin 0.27 ng/mL (0-0.5)
[2022-08-22 11:59] LABS: Adenovirus Not Detected (NOT DETECT); Chlamydia Pneumoniae Not Detected (NOT DETECT); Coronavirus 229E,HKU1,NL63,OC4 Not Detected (NOT DETECT); Human Metapneumovirus Not Detected (NOT DETECT); Human Rhinovirus/Enterovirus Not Detected (NOT DETECT); Influenza A Not Detected (NOT DETECT); Influenza A H1 Not Detected (NOT DETECT); Influenza A H1-2009 Not Detected (NOT DETECT); Influenza A H3 Not Detected (NOT DETECT); Influenza B Not Detected (NOT DETECT); Mycoplasma Pneumoniae Not Detected (NOT DETECT); Parainfluenza Virus Type 1 Not Detected (NOT DETECT); Parainfluenza Virus Type 2 Not Detected (NOT DETECT); Parainfluenza Virus Type 3 Not Detected (NOT DETECT); Parainfluenza Virus Type 4 Not Detected (NOT DETECT); Respiratory Syncytial Virus A Not Detected (NOT DETECT); Respiratory Syncytial Virus B Not Detected (NOT DETECT); SARS-COV-2 Detected (NOT DETECT)
[2022-08-22 13:11] LABS: Add Urine Microscopic? YES; Bilirubin Urine Neg (Negative); Blood Urine Neg (Negative); Glucose Urine UA 4+ (Normal); Leukocyte Esterase Urine Negative (Negative); Nitrate Urine Negative (Negative); Protein Urine Trace (Negative); Specific Gravity, Urine 1.015 (1.005-1.030); Urine Appearance Clear (CLEAR); Urine Color Yellow (Yellow); Urobilinogen Urine Norm (Negative); pH Urine 5 (5-7)
[2022-08-22 13:12] LABS: Add Urine Culture? No; Bacteria Urine TRACE /hpf; Ketones Urine 1+ (Negative); WBC Urine 0-4 /hpf (0-5)
[2022-08-22] MEDS: remdesivir 200 MG in sodium chloride 0.9% (100 ml) 60 ML 100 MG IV (13:14)
[2022-08-22] MEDS: dexamethasone 10 mg/mL INJ 6 MG IVP (13:15)
[2022-08-22 14:38] LABS: Troponin 5 6HR 15.67 ng/L (0-10); Troponin 5 6HR Delta 5.67 ng/L (0-12)
[2022-08-22] MEDS: cloNIDine 0.1 mg Tablet 0.3 MG PO (17:23)
[2022-08-22] MEDS: lisinopril 20 mg Tablet 40 MG PO (17:23)
[2022-08-22] MEDS: insulin lispro 100 unit/1 mL SUBCUT ×2 (17:43→22:58)
[2022-08-22 17:56] LABS: Glucose Point of Care 359 mg/dL (70-110)
[2022-08-22] MEDS: albuterol 2.5 mg/3 mL Neb INHALATION (20:22)
[2022-08-22] MEDS: ipratropium 0.5 mg/2.5 mL Neb INHALATION (20:22)
[2022-08-22] MEDS: latanoprost 0.005% Op Soln 2.5 mL Btl 1 DROP EYE-BOTH (22:57)
[2022-08-22] MEDS: metoprolol succinate ER (24 HR) 100 mg Tablet 200 MG PO (22:57)
[2022-08-23] VITALS (14 sets, daily range): BP systolic 144–178; BP diastolic 73–83; PULSE 74–132; RESP 16–20; TEMP 36.4–36.9; O2SAT 90–97
[2022-08-23] MEDS: ipratropium 0.5 mg/2.5 mL Neb INHALATION ×4 (01:53→20:59)
[2022-08-23] MEDS: albuterol 2.5 mg/3 mL Neb INHALATION ×4 (01:53→20:59)
[2022-08-23 05:40] LABS: Basophils % 0.2 %; Hematocrit 36.4 % (37.0-47.0); Hemoglobin 11.4 g/dL (11.5-15.3); Lymphocytes # 1.4 10^3/uL (0.8-4.8); Lymphocytes % 13.3 %; Mean Corpuscular HGB Conc 31.3 g/dL (30.0-36.0); Mean Corpuscular Hemoglobin 29.4 pg (28.0-34.0); Mean Corpuscular Volume 93.8 fl (81-99); Mean Platelet Volume 9.9 fL (7.4-10.4); Monocytes # 0.7 10^3/uL (0.2-0.9); Neutrophils # 8.25 10^3/uL (1.8-7.7); Neutrophils % 79.3 %; Nucleated Red Blood Cells % 0 %; Platelet Count 196 10^3/cmm (130-400); Red Blood Count 3.88 10^6/uL (4.1-5.3); Red Cell Distribution Width 14.6 % (12.1-15.1); White Blood Count 10.4 10^3/uL (4.0-10.0)
[2022-08-23 05:59] LABS: Alanine Aminotransferase 18 U/L (0-33); Albumin Level 3.2 g/dL (3.5-5.2); Alkaline Phosphatase 85 U/L (35-105); Anion Gap 17.4 (5-19); Aspartate Amino Transferase 15 U/L (0-32); Blood Urea Nitrogen 19 mg/dL (8-23); Carbon Dioxide 23 mmol/L (22-29); Chloride 100 mmol/L (98-107); Glucose 231 mg/dL (65-115); Magnesium 1.9 mg/dL (1.7-2.3); Osmolality Calculated 292 mOsm/kg (285-295); Potassium 4.4 mmol/L (3.5-5.1); Sodium 136 mmol/L (136-145); Total Protein 7.2 g/dL (6.6-8.7)
[2022-08-23 06:51] LABS: Glucose Point of Care 222 mg/dL (70-110)
--- NOTE | 2022-08-23 08:30 | P.PN_ITS ---
Subjective Subjective: Thelma think she is improving. She is less short of breath. She is weaned down to 2 L of oxygen. She does not have any chest discomfort. Medications: Reviewed: Yes Vitals/I&O/Wt Last Vital Signs Temp 98.0 F 08/23/22 07:51 Pulse 88 08/23/22 07:55 Resp 16 08/23/22 07:55 BP 178/83 08/23/22 07:51 Pulse Ox 95 08/23/22 07:55 O2 Del Method 08/23/22 07:55 O2 Flow Rate 2 08/23/22 07:55 08/22/22 08/23/22 08/23/22 22:59 06:59 14:59 Intake Total 1120 / 1220 Output Total 800 / 800 Balance 1120 / 1220 -800 / 420 Weight last 48 hrs Weight 96.162 kg Weight 104.326 kg Physical Exam Narrative: General exam is a white female now on 2 L of oxygen, no distress Neck is supple no lymphadenopathy thyromegaly Cardiovascular regular rate and rhythm, borderline tachycardic, no murmur Lungs bibasilar crackles left greater than right. No wheezes Abdomen is soft, positive bowel sounds. No obvious organomegaly Extremities 1+ edema bilaterally Data 08/23/22 05:32 08/23/22 05:32 Other Labs: Procalcitonin slightly high Micro: Microbiology 08/22/22 08:28 Blood Culture - Preliminary Blood SPECIMEN COLLECTED 08/22/22 08:33 Blood Culture - Preliminary Blood SPECIMEN COLLECTED A&P Assessment and plan (1) Acute respiratory failure with hypoxemia: Patient presents with acute respiratory failure, currently requiring 6 L of oxygen. She has now weaned down to 2 L (2) Pneumonia due to COVID-19 virus: CTA no pulmonary embolism. Consistent with COVID. COVID PCR positive Continue remdesivir Continue dexamethasone 6 mg IV every 6 hours Pulmonary toilet Acapella Sleep prone as much as possible Procalcitonin increased. Add Rocephin empirically Lasix 40 mg IV given on admission. Repeat dose today. Creatinine is normal and she still appears to be slightly fluid overloaded Repeat laboratory in the morning CRP has not yet decreased (3) Diabetes mellitus: Sliding scale insulin Secondary to dexamethasone sugars are higher. Increase to moderate insulin sli ding scale (4) Hypertension: Continue home medications (5) Elevated brain natriuretic peptide (BNP) level: BNP elevated and evidence of peripheral edema Repeat dose of Lasix today Repeat BMP in the morning Echocardiogram demonstrated moderate mitral regurgitation, 3/4 diastolic dysfunction Plan Multiple other medical problems as outlined in past medical history Full code Lovenox for DVT prophylaxis Attestations Medical Necessity Statement*: Needs continued hospitalization for treatment of COVID-19 pneumonia with antiviral and IV steroid Diagnoses Acute respiratory failure with hypoxemia J96.01 Pneumonia due to COVID-19 virus U07.1; J12.82 Diabetes mellitus E11.9 Hypertension I10 Elevated brain natriuretic peptide (BNP) level R79.89 Time Spent (min) 31
[2022-08-23] MEDS: insulin lispro 100 unit/1 mL SUBCUT ×3 (09:00→17:26)
[2022-08-23] MEDS: cefTRIAXone 1,000 MG in sodium chloride 0.9% (plus) 50 ML 100 MG IV (09:45)
[2022-08-23] MEDS: amlodipine 10 mg Tablet PO (09:46)
[2022-08-23] MEDS: atorvastatin 40 mg Tablet 20 MG PO (09:46)
[2022-08-23] MEDS: levothyroxine 88 mcg Tablet PO (09:47)
[2022-08-23] MEDS: lisinopril 20 mg Tablet 40 MG PO ×2 (09:47→17:25)
[2022-08-23] MEDS: enoxaparin 40 mg/0.4 mL Syringe SUBCUT (09:47)
[2022-08-23] MEDS: FUROsemide 10 mg/mL SDV 4mL 40 MG IVP (09:47)
[2022-08-23] MEDS: cloNIDine 0.1 mg Tablet 0.3 MG PO ×2 (09:47→17:25)
[2022-08-23 11:58] LABS: Glucose Point of Care 232 mg/dL (70-110)
--- NOTE | 2022-08-23 12:33 | PC.CHAP ---
Pastoral Care Encounter/Spiritual Assessment Type of Contact [] Declined vice president of talent acquisition visit [] Patient/Family/Request visit [] Outpatient visit [] Follow-up visit [] Physician referral [] Code/Alert [x] Routine visit [] Staff referral [] Actively dying [] Patient sleeping [] Family support [] [] Out of room [] Palliative care [] [x] Receiving care in room [] Pre-surgical visit [] Trauma [] Long length of stay [] ICU visit [x] Other: Islation Relational/Emotional Strength [x] Patient feels connected with others/family/visitors/staff [] Distress [] Loneliness/isolation [] Abandonment Spirituality of Patient [] Person of Jeannine [] Attends Oriental Orthodox of their Jeannine [] Believes in Prayer [] Reads Bible or Christian materials [] There are Spiritual issues to be addressed Solar Manager Interventions [] Prayer [] Active listening [] Non-anxious presence [] Spiritual/emotional support [] Crisis/trauma care [] Spiritual counseling [] Bereavement support [] Provided bereavement packet [] Provided Bible/devotional materials [] Provided toy/stuffed animal, coloring book to patient or family member [] Provided Communion [] Anointing/[place] [] Salvation [] Completed spiritual assessment [] Other: Impact on Illness or Injury [] Angry [] Fearful [] Anxious [] Often cries [] Exhaustion [] Unable to work [] Unable to attend rastafari [] Unable to walk/stand [] Unable to read [] Unable to drive [] Unable to eat/drink [] Unable to sleep [] Unable to be with family [] Patient intubated [] Other: Summary Islation Time spent with patient 5 mins
[2022-08-23] MEDS: dexamethasone 10 mg/mL INJ 6 MG IVP (15:09)
[2022-08-23 16:44] LABS: Glucose Point of Care 286 mg/dL (70-110)
--- NOTE | 2022-08-23 20:17 | PC.NURSE ---
Patient A&Ox4, VSS at this time. Lungs clear upon auscultation, no cough present, currently on room air and demonstrating no dyspnea or irregular respiratory pattern. S1 and S2 heart sounds present. Active bowel sounds present in all four quadrants. No apparent skin issues or wounds noted or reported by patient. Patient also stated that she was not in any pain or discomfort at this time. Patient discussed with nurse that she went on a cruise to [facility] and [place] and came down with COVID after she came back home. Nurse asked patient if she could remove any trash or tidy room; patient stated that nurse could remove dinner tray. 50% of dinner noted to have been consumed by patient. Patient was educated to use call light if she needed or wanted anything. Patient was left sitting on side of bed, two side rails up with call light and bedside table within reach, patient stated no further needs at this time.
[2022-08-23] MEDS: metoprolol succinate ER (24 HR) 100 mg Tablet 200 MG PO (21:43)
[2022-08-23] MEDS: remdesivir 100 MG in sodium chloride 0.9% (100 ml) 80 ML IV (21:43)
[2022-08-23] MEDS: latanoprost 0.005% Op Soln 2.5 mL Btl 1 DROP EYE-BOTH (21:43)
--- NOTE | 2022-08-23 22:32 | PC.NURSE ---
IV in right AC space infiltrated and leaked. IV was stopped and removed, catheter tip intact upon removal. New 20 gauge IV started in right anterior forearm, patent and asymptomatic. New IV dressing was dated and initialized by this nurse.
[2022-08-23 23:33] LABS: Glucose Point of Care 423 mg/dL (70-110)
[2022-08-24] VITALS (16 sets, daily range): BP systolic 150–185; BP diastolic 71–83; PULSE 73–110; RESP 14–21; TEMP 36.4–36.7; O2SAT 90–99
[2022-08-24] MEDS: insulin lispro 100 unit/1 mL SUBCUT ×5 (00:37→22:12)
--- NOTE | 2022-08-24 00:39 | PC.NURSE ---
Blood sugar this evening was 423. Dr Dennis was informed and insulin regimen was changed from medium HS to high dose for both according to orders.18 units of insulin were administered according to protocol, and insulin was verified with charge nurse. Patient was educated to inform nurse if she felt like blood sugar was low/felt shaky or dizzy.
[2022-08-24] MEDS: albuterol 2.5 mg/3 mL Neb INHALATION ×4 (02:33→20:37)
[2022-08-24] MEDS: ipratropium 0.5 mg/2.5 mL Neb INHALATION ×4 (02:34→20:38)
[2022-08-24 07:23] LABS: Glucose Point of Care 231 mg/dL (70-110)
--- NOTE | 2022-08-24 09:24 | P.PN_ITS ---
Subjective Subjective: Thelma reports she is feeling better. She is weaned down to room air. She states her oxygen level is about 88 to 92% at times and she still feels fairly short of breath with any kind of exertion. Medications: Reviewed: Yes Vitals/I&O/Wt Last Vital Signs Temp 98.1 F 08/24/22 04:00 Pulse 84 08/24/22 08:00 Resp 18 08/24/22 08:00 BP 185/80 08/24/22 07:37 Pulse Ox 99 08/24/22 08:00 O2 Del Method 08/24/22 08:00 O2 Flow Rate 2 08/23/22 07:55 08/23/22 08/24/22 08/24/22 22:59 06:59 14:59 Intake Total 530 / 1010 1260 / 2270 Output Total 850 / 850 Balance 530 / 1010 410 / 1420 Weight last 48 hrs Weight 96.162 kg Physical Exam Narrative: General exam is a white female now on room air. Mild tachypnea. Neck is supple no lymphadenopathy thyromegaly Cardiovascular regular rate and rhythm, borderline tachycardic, no murmur Lungs a few faint crackles but improved from admission Abdomen is soft, positive bowel sounds. No obvious organomegaly Extremities trace edema bilaterally Data 08/23/22 05:32 08/23/22 05:32 Micro: Microbiology 08/22/22 08:28 Blood Culture - Preliminary Blood NEGATIVE TO DATE 08/22/22 08:33 Blood Culture - Preliminary Blood NEGATIVE TO DATE A&P Assessment and plan (1) Acute respiratory failure with hypoxemia: Patient presents with acute respiratory failure, currently requiring 6 L of oxygen. She is now down to room air but with borderline O2 saturations (2) Pneumonia due to COVID-19 virus: CTA no pulmonary embolism. Consistent with COVID. COVID PCR positive Continue remdesivir Continue dexamethasone 6 mg IV every 6 hours Pulmonary toilet Acapella Sleep prone as much as possible Procalcitonin increased. Add Rocephin empirically She received 2 doses of Lasix on the first 2 days of admission Repeat laboratory in the morning Repeat CRP tomorrow Continue empiric Rocephin (3) Diabetes mellitus: Sliding scale insulin Secondary to dexamethasone sugars are higher. Increase to moderate insulin sliding scale (4) Hypertension: Continue home medications (5) Elevated brain natriuretic peptide (BNP) level: Clinically appears compensated. Repeat BMP in the morning Echocardiogram demonstrated moderate mitral regurgitation, 3/4 diastolic dysfunc tion Add oral Lasix daily Check BMP today Plan Multiple other medical problems as outlined in past medical history Full code Lovenox for DVT prophylaxis Attestations Medical Necessity Statement*: Needs continued hospitalization for close follow-up of COVID-19 pneumonia Diagnoses Acute respiratory failure with hypoxemia J96.01 Pneumonia due to COVID-19 virus U07.1; J12.82 Diabetes mellitus E11.9 Hypertension I10 Elevated brain natriuretic peptide (BNP) level R79.89
[2022-08-24] MEDS: enoxaparin 40 mg/0.4 mL Syringe SUBCUT (09:27)
[2022-08-24] MEDS: atorvastatin 40 mg Tablet 20 MG PO (09:28)
[2022-08-24] MEDS: cloNIDine 0.1 mg Tablet 0.3 MG PO ×2 (09:28→18:26)
[2022-08-24] MEDS: cefTRIAXone 1,000 MG in sodium chloride 0.9% (plus) 50 ML 100 MG IV (09:29)
[2022-08-24] MEDS: amlodipine 10 mg Tablet PO (09:29)
[2022-08-24] MEDS: lisinopril 20 mg Tablet 40 MG PO ×2 (09:29→18:27)
[2022-08-24] MEDS: levothyroxine 88 mcg Tablet PO (09:29)
[2022-08-24] MEDS: FUROsemide 20 mg Tablet PO (10:23)
[2022-08-24 10:31] LABS: Anion Gap 16.9 (5-19); Blood Urea Nitrogen 18 mg/dL (8-23); Calcium 9.3 mg/dL (8.5-10.5); Carbon Dioxide 24 mmol/L (22-29); Chloride 98 mmol/L (98-107); Glucose 241 mg/dL (65-115); Osmolality Calculated 290 mOsm/kg (285-295); Potassium 3.9 mmol/L (3.5-5.1); Sodium 135 mmol/L (136-145)
[2022-08-24 11:10] LABS: Glucose Point of Care 265 mg/dL (70-110)
[2022-08-24] MEDS: dexamethasone 10 mg/mL INJ 6 MG IVP (12:27)
[2022-08-24 17:01] LABS: Glucose Point of Care 340 mg/dL (70-110)
[2022-08-24] MEDS: remdesivir 100 MG in sodium chloride 0.9% (100 ml) 80 ML IV (18:56)
--- NOTE | 2022-08-24 20:04 | PC.NURSE ---
Patient A&O, VSS at this time. Anterior lungs auscultated clear, saturating in low 90s on room air. Patient reports that shortness of breath occurred this evening but no current complaints of difficulty breathing. Patient S1 and S2 heart sounds present. Bowel sonds present in all four quadrants and abdomen soft, flat, and non-tender. Patient reports no BM today but states that she feels like she has to go and might be able to later. IV in right forearm patent and asymptomatic at this time, flushes well with no complaints of pain by patient. 2+ pitting edema present in bilateral lower extremities, patient states that this is normal for her. 3+ pedal pulses palpated in bilateral feet. Patient complains of no pain at this time. Patient consumed approximately 50% of dinner tray. Patient left sitting on side of bed, two side rails up, call light and bedside table within reach. Patient stated no further needs at this time.
[2022-08-24 21:47] LABS: Glucose Point of Care 330 mg/dL (70-110)
[2022-08-24] MEDS: metoprolol succinate ER (24 HR) 100 mg Tablet 200 MG PO (22:11)
[2022-08-24] MEDS: latanoprost 0.005% Op Soln 2.5 mL Btl 1 DROP EYE-BOTH (22:11)
[2022-08-25] VITALS (12 sets, daily range): BP systolic 131–169; BP diastolic 75–80; PULSE 69–78; RESP 16–20; TEMP 36.7–36.9; O2SAT 95–100
[2022-08-25] MEDS: ipratropium 0.5 mg/2.5 mL Neb INHALATION ×3 (02:55→13:40)
[2022-08-25] MEDS: albuterol 2.5 mg/3 mL Neb INHALATION ×3 (02:55→13:40)
[2022-08-25 06:06] LABS: Basophils % 0.1 %; Hematocrit 34.2 % (37.0-47.0); Hemoglobin 10.9 g/dL (11.5-15.3); Lymphocytes # 2.2 10^3/uL (0.8-4.8); Lymphocytes % 21.5 %; Mean Corpuscular HGB Conc 31.9 g/dL (30.0-36.0); Mean Platelet Volume 10.1 fL (7.4-10.4); Monocytes # 0.7 10^3/uL (0.2-0.9); Neutrophils # 7.02 10^3/uL (1.8-7.7); Neutrophils % 70.2 %; Nucleated Red Blood Cells % 0.3 %; Platelet Count 236 10^3/cmm (130-400); Red Blood Count 3.76 10^6/uL (4.1-5.3); Red Cell Distribution Width 14.4 % (12.1-15.1)
[2022-08-25 06:24] LABS: Glucose Point of Care 274 mg/dL (70-110)
[2022-08-25 06:27] LABS: Anion Gap 14.4 (5-19); Blood Urea Nitrogen 21 mg/dL (8-23); Carbon Dioxide 25 mmol/L (22-29); Chloride 99 mmol/L (98-107); Potassium 4.4 mmol/L (3.5-5.1); Sodium 134 mmol/L (136-145)
[2022-08-25 06:28] LABS: Alanine Aminotransferase 18 U/L (0-33); Albumin Level 3.3 g/dL (3.5-5.2); Alkaline Phosphatase 77 U/L (35-105); Aspartate Amino Transferase 14 U/L (0-32); C Reactive Protein 64.7 mg/L (0.0-4.9); Globulin 3.4 g/dL (1.3-4.6); Glucose 281 mg/dL (65-115); Osmolality Calculated 291 mOsm/kg (285-295); Total Bilirubin 0.6 mg/dL (0.15-1.2); Total Protein 6.7 g/dL (6.6-8.7)
[2022-08-25] MEDS: FUROsemide 20 mg Tablet PO (08:35)
[2022-08-25] MEDS: insulin lispro 100 unit/1 mL SUBCUT ×2 (08:35→12:45)
[2022-08-25] MEDS: enoxaparin 40 mg/0.4 mL Syringe SUBCUT (08:36)
[2022-08-25] MEDS: atorvastatin 40 mg Tablet 20 MG PO (08:37)
[2022-08-25] MEDS: amlodipine 10 mg Tablet PO (08:37)
[2022-08-25] MEDS: levothyroxine 88 mcg Tablet PO (08:37)
[2022-08-25] MEDS: cloNIDine 0.1 mg Tablet 0.3 MG PO (08:38)
[2022-08-25] MEDS: lisinopril 20 mg Tablet 40 MG PO (08:38)
[2022-08-25] MEDS: cefTRIAXone 1,000 MG in sodium chloride 0.9% (plus) 50 ML 100 MG IV (08:39)
--- NOTE | 2022-08-25 10:05 | PC.SOCIAL ---
IMM Update IMM updated with patient. Verbalized an understanding. Copy Pg 2 provided. Initialled, dated, timed, and placed in chart.
--- NOTE | 2022-08-25 11:28 | USR_ITS ---
PROCEDURE INFORMATION: Exam: US Duplex Lower Extremity Veins, Bilateral Exam date and time: 08/25/2022 2:23 PM Age: 77 years old Clinical indication: Condition or disease; Other: Covid; Additional info: Dvt TECHNIQUE: Imaging protocol: Real-time duplex ultrasound of the bilateral extremities with 2-D villalba scale, color Doppler flow and spectral waveform analysis including responses to compression and other maneuvers (when performed) with image documentation. Complete exam focused on the lower extremity veins. COMPARISON: US ROR venous duplex LE RT 04/10/2022 9:11 AM FINDINGS: Right deep veins: Unremarkable. The common femoral, femoral, proximal profunda femoral and popliteal veins are patent without thrombus. Normal Doppler waveforms. Normal compressibility and/or augmentation response. Right superficial veins: Saphenofemoral junction is patent without thrombus. Left deep veins: Unremarkable. The common femoral, femoral, proximal profunda femoral and popliteal veins are patent without thrombus. Normal Doppler waveforms. Normal compressibility and/or augmentation response. Left superficial veins: Saphenofemoral junction is patent without thrombus. Soft tissues: Unremarkable. US/CV venous duplex [facility] [id number] IMPRESSION: No evidence of deep vein thrombosis.
--- NOTE | 2022-08-25 12:34 | P.DS_ITS ---
Discharge Providers Date of Admission: 08/22/22 10:27 Date of Discharge: August 25, 2022 Attending Provider at Admission: Gomez Kaufman MD Attending Provider at Discharge: Med Soto MD Primary Care Provider: Miguel Dale MD Diagnoses at Discharge Discharge Diagnosis (1) Acute respiratory failure with hypoxemia: Status: Acute (2) Pneumonia due to COVID-19 virus: Status: Acute (3) Diabetes mellitus: Status: Acute (4) Hypertension: Status: Acute (5) Elevated brain natriuretic peptide (BNP) level: Status: Acute Reason for Visit Reason for Visit: SOB Hospital Course Hospital Course Thelma Rm is a 77 year old female who presents with shortness of breath noted on Saturday.? She states she is felt short of breath, having some chills and subjective fever, rare cough that is nonproductive.? She denies any chest pain.? She has not had any vomiting or diarrhea.? She recently went on a cruise with her , in the [facility] visiting [place], [employer], [place].? She does not know of any illness that was present on the cruise ship.? She reports her lower extremity swelling that typically goes away after sleeping at night has been a little worse after the trip.? She did not fly during this trip. During her emergency department visit she had blood cultures drawn, received oxygen, and received 40 mg of Lasix IV Patient was admitted to [facility] for acute respiratory failure with hypoxia secondary to COVID-19, requiring 6 L of oxygen on admission, CTA negative for pulmonary embolism, received Decadron, remdesivir, Rocephin, received intermittent Lasix therapy, clinically monitored. Overall patient clinically improved, remained afebrile, on room air. Patient was discharged after 3 days of treatment for COVID-19. In terms of her hypercoagulability prophylaxis for COVID-19, she remains mobile, advised to continue to remain mobile, monitor for signs of DVT or PE or chest pain if so go to emergency room. For COVID-19 continue to self isolate, socially distance, facemask, hand wash. Follow-up with primary care provider 1 week. Discharged on doxycycline, albuterol, she did have some edema during the hospitalization, and on discharge so I discharged her on Lasix therapy 20 mg p.o. daily with potassium replacement therapy for the next [address] angiogram of the chest showed Bulky peribronchial and subcarinal lymphadenopathy. Prominent anterior mediastinal lymph nodes. -She has a history of B-cell lymphoma -I advised her to follow-up with pulmonary as outpatient -Follow-up with Dr. Rodriguez as outpatient for consideration of repeat CAT scan versus tissue sampling versus PET scan Physical Exam Const: COMMON NORMALS: no acute distress and patient oriented x3 Resp: COMMON NORMALS: normal respiratory effort, No retractions, No use of accessory muscles and clear to auscultation bilaterally AUSCULTATION: clear to auscultation bilaterally Cardio: COMMON NORMALS: regular rate, regular rhythm, S1 normal heart sound present and S2 normal heart sound present RATE: regular rate RHYTHM: regular rhythm HEART SOUNDS: S1 normal heart sound present and S2 normal heart sound present GI: COMMON NORMALS: Normal to inspection, nondistended, normoactive bowel sounds present and non-tender Extremity: NARRATIVE EXTREMITY EXAM: 1+ pitting edema Neuro: COMMON NORMALS: patient oriented x3 Psych: COMMON NORMALS: mental status grossly normal Discharge Data Studies Completed and Pending Completed Studies During Hospitalization Category Date Time Status CT angio chest PE protcl [id number] Stat Cat Scan 08/22/22 09:07 Completed XR chest 1V portable [id number] Stat Exams 08/22/22 07:25 Completed CV. echo complete* [id number] Routine Ultrasound 08/22/22 10:55 Completed Pending at discharge Category Date Time Status Blood Culture Stat Lab 08/22/22 08:28 [place] [id number] Stat Ultrasound 08/25/22 11:28 Ordered Radiology Impressions Chest X-Ray 08/22/22 07:25 IMPRESSION: 1. Diffuse interstitial and airspace opacities throughout both lungs. Vascular congestion suggesting there is likely some acute pulmonary edema present. Other considerations would include interstitial pneumonia and superimposed chronic pulmonary changes. Lymphatic metastatic disease could also have this appearance. 2. There may be some widening of the mediastinum on the right. Mediastinal mass or lymphadenopathy might be considered. Chest CTA 08/22/22 09:07 IMPRESSION: 1. Proximal main pulmonary arteries are normal. No evidence of pulmonary embolus. 2. Small bilateral pleural effusions with compressive atelectasis in the lung bases. 3. Diffuse hazy groundglass infiltrates throughout both lungs with interlobular septal thickening and patchy airspace infiltrates. Findings suspicious for viral pneumonia. Consider Covid 19 pneumonia. Interstitial thickening likely due to superimposed edema. Lymphangitic metastasis not entirely excluded. Recommend follow-up to resolution. 4. Bulky peribronchial and subcarinal lymphadenopathy. Prominent anterior mediastinal lymph nodes. 5. 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 This is present on the PET/CT 2013 and is similar in appearance. Notified Song Jimenez DO at 08/22/2022 10:33 AM. Laboratory Results WBC 10.0 10^3/uL (4.0-10.0) 08/25/22 05:39 RBC 3.76 10^6/uL (4.1-5.3) L 08/25/22 05:39 Hgb 10.9 g/dL (11.5-15.3) L 08/25/22 05:39 Hct 34.2 % (37.0-47.0) L 08/25/22 05:39 MCV 91.0 fl (81-99) 08/25/22 05:39 MCH 29.0 pg (28.0-34.0) 08/25/22 05:39 MCHC 31.9 g/dL (30.0-36.0) 08/25/22 05:39 RDW 14.4 % (12.1-15.1) 08/25/22 05:39 Plt Count 236 10^3/cmm (130-400) 08/25/22 05:39 MPV 10.1 fL (7.4-10.4) 08/25/22 05:39 Neut % (Auto) 70.2 % 08/25/22 05:39 Lymph % (Auto) 21.5 % 08/25/22 05:39 [place] % (Auto) 7.0 % 08/25/22 05:39 Eos % (Auto) 0.0 % 08/25/22 05:39 Baso % (Auto) 0.1 % 08/25/22 05:39 Neut # (Auto) 7.02 10^3/uL (1.8-7.7) 08/25/22 05:39 Lymph # (Auto) 2.2 10^3/uL (0.8-4.8) 08/25/22 05:39 [place] # (Auto) 0.7 10^3/uL (0.2-0.9) 08/25/22 05:39 Eos # (Auto) 0.0 10^3/uL (0.0-0.8) 08/25/22 05:39 Baso # (Auto) 0.0 10^3/uL (0.0-0.1) 08/25/22 05:39 Nucleated RBC % (auto) 0.3 % 08/25/22 05:39 Nucleated RBCs # 0.0 /100WBC 08/25/22 05:39 D-Dimer 2.03 ug/mIFEU (0-0.59) H 08/22/22 07:32 Specimen Type Arterial 08/22/22 07:35 Sample Site Brachial, left 08/22/22 07:35 ABG pH 7.40 (7.35-7.45) 08/22/22 07:35 ABG pCO2 36.7 mmHg (35-45) 08/22/22 07:35 ABG pO2 75.7 mmHg (80.0-100.0) L 08/22/22 07:35 ABG HCO3 22.5 mmol/L (22-26) 08/22/22 07:35 ABG O2 Saturation 95.9 08/22/22 07:35 ABG Base Excess -2.0 mmol/L (-2.0-2.0) 08/22/22 07:35 Louis Test N/a 08/22/22 07:35 A-a O2 Gradient 20.6 mmHg (5-10) H 08/22/22 07:35 Hematocrit 38.4 % (37-47) 08/22/22 07:35 Hgb O2 Saturation 93.4 % (95-100) L 08/22/22 07:35 Carboxyhemoglobin 2.0 %THgb (0.4-20.1) 08/22/22 07:35 Methemoglobin 0.5 % (0.4-1.5) 08/22/22 07:35 Total Hemoglobin 12.5 g/dL (12-16) 08/22/22 07:35 Sodium 137.0 mmol/L (131-143) 08/22/22 07:35 Potassium 4.0 mmol/L (3.5-5.0) 08/22/22 07:35 Glucose 255.0 mg/dL (70-115) H 08/22/22 07:35 Ionized Calcium 1.2 mmol/L (1.1-1.4) 08/22/22 07:35 O2 Delivery Device Nc 08/22/22 07:35 O2 Liters/Min 5.0 % 08/22/22 07:35 FiO2 40.0 % 08/22/22 07:35 Loading Unit Operator Seating ID Amh 08/22/22 07:35 Sodium 134 mmol/L (136-145) L 08/25/22 05:39 Potassium 4.4 mmol/L (3.5-5.1) 08/25/22 05:39 Chloride 99 mmol/L (98-107) 08/25/22 05:39 Carbon Dioxide 25 mmol/L (22-29) 08/25/22 05:39 Anion Gap 14.4 (5-19) 08/25/22 05:39 BUN 21 mg/dL (8-23) 08/25/22 05:39 Creatinine 0.9 mg/dL (0.5-0.9) 08/25/22 05:39 GFR Calculation Not Reportable 08/25/22 05:39 Glucose 281 mg/dL (65-115) H 08/25/22 05:39 POC Glucose 274 mg/dL (70-110) H 08/25/22 06:06 Calculated Osmolality 291 mOsm/kg (285-295) 08/25/22 05:39 Calcium 9.0 mg/dL (8.5-10.5) 08/25/22 05:39 Magnesium 1.9 mg/dL (1.7-2.3) 08/23/22 05:32 Total Bilirubin 0.6 mg/dL (0.15-1.2) 08/25/22 05:39 AST 14 U/L (0-32) 08/25/22 05:39 ALT 18 U/L (0-33) 08/25/22 05:39 Alkaline Phosphatase 77 U/L (35-105) 08/25/22 05:39 Troponin T Baseline 10 ng/L (0-10) 08/22/22 07:32 Troponin T 120 Minute 15.35 ng/L (0-10) H 08/22/22 10:15 Delta Troponin T 5.35 ABS# (0-10) 08/22/22 10:15 Troponin T Hi Sens 6Hr 15.67 ng/L (0-10) H 08/22/22 14:00 Troponin T Hi Sens 6Hr Delta 5.67 ng/L (0-12) 08/22/22 14:00 C-Reactive Protein 64.7 mg/L (0.0-4.9) H 08/25/22 05:39 NT-Pro-B Natriuret Pep 1729 pg/mL (0-450) H 08/22/22 07:32 Total Protein 6.7 g/dL (6.6-8.7) 08/25/22 05:39 Albumin 3.3 g/dL (3.5-5.2) L 08/25/22 05:39 Globulin 3.4 g/dL (1.3-4.6) 08/25/22 05:39 Procalcitonin 0.60 ng/mL (0-0.5) H 08/23/22 05:32 Urine Color Yellow (Yellow) 08/22/22 12:20 Urine Appearance Clear (CLEAR) 08/22/22 12:20 Urine pH 5 (5-7) 08/22/22 12:20 Ur Specific [place] 1.015 (1.005-1.030) 08/22/22 12:20 Urine Protein Trace (Negative) 08/22/22 12:20 Urine Glucose (UA) 4+ (Normal) H 08/22/22 12:20 Urine Ketones 1+ (Negative) H 08/22/22 12:20 Urine Blood Neg (Negative) 08/22/22 12:20 Urine Nitrate Negative (Negative) 08/22/22 12:20 Urine Bilirubin Neg (Negative) 08/22/22 12:20 Urine Urobilinogen Norm mg/dL (Negative) 08/22/22 12:20 Ur Leukocyte Esterase Negative (Negative) 08/22/22 12:20 Urine RBC None /hpf (0-2) 08/22/22 12:20 Urine WBC 0-4 /hpf (0-5) H 08/22/22 12:20 Ur Squamous Epith Cells None /hpf (0-5) 08/22/22 12:20 Amorphous Sediment Not Reportable 08/22/22 12:20 Urine Bacteria Trace /hpf (NONE) 08/22/22 12:20 Coronavirus 229E (PCR) Not detected (NOT DETECT) 08/22/22 08:00 SARS-CoV-2 (PCR) Detected (NOT DETECT) A 08/22/22 08:00 Vitals Last Vital Signs Temp 98.2 F 08/25/22 08:45 Pulse 73 08/25/22 08:45 Resp 17 08/25/22 08:45 BP 168/77 08/25/22 08:45 Pulse Ox 100 08/25/22 08:45 O2 Del Method 08/25/22 08:45 O2 Flow Rate 2 08/23/22 07:55 Discharge Plan Discharge Patient Disposition: Home Condition: Stable Prescriptions: New albuterol sulfate [ProAir HFA] 90 mcg/actuation HFA aerosol inhaler 1 inh inhalation Q6H PRN (Reason: shortness of breath or wheezing) Qty: 8.5 0RF doxycycline hyclate 100 mg tablet 100 mg PO BID 5 Days Qty: 10 0RF furosemide [Lasix] 20 mg tablet 20 mg PO DAILY 3 Days Qty: 3 0RF potassium chloride [Klor-Con M20] 20 mEq tablet,ER particles/crystals 20 meq PO DAILY 3 Days Qty: 3 0RF Continued latanoprost 0.005 % drops 1 drp ophthalmic (eye) BEDTIME oxybutynin chloride 10 mg tablet extended release 24hr 10 mg PO DAILY metoprolol succinate 200 mg tablet extended release 24 hr 200 mg PO BEDTIME glipizide 10 mg tablet 10 mg PO DAILY clonidine HCl 0.3 mg tablet 0.3 mg PO BID simvastatin 10 mg tablet 10 mg PO DAILY pioglitazone 45 mg tablet 45 mg PO DAILY levothyroxine 88 mcg tablet 88 mcg PO DAILY amlodipine 10 mg tablet 10 mg PO DAILY lisinopril 40 mg tablet 40 mg PO BID metformin 500 mg tablet extended release 24 hr 1,000 mg PO BID Rybelsus 7 mg tablet 7 mg PO DAILY Discharge Orders: Discharge Order (Routine); Ordered 08/25/22 Ordered By: Med Soto Referrals: BillrMariusz MD [Physician] - 1 month (mediastinal lymphadenoapthy and covid) Miguel Dale MD [Primary Care Provider] - Kendrick Rodriguez MD [Staff Physician] - 1 month (medistinal lymphandenoapthy ) Discharge Diet: Cardiac Discharge Activity: Resume usual activity Patient Instructions: How To Wash Your Hands (DC), COVID-19 (Coronavirus Disease 2019) (DC), COVID-19 and Chronic Health Conditions (DC), Face Coverings (Masks) and COVID-19 (DC), Safely Care for Someone Who Has COVID-19 (ED), How to Recover from COVID-19 at Home (GEN), Social Distancing Guidelines for COVID-19 (DC), COVID-19 Vaccine (1 Dose) (GEN), Long COVID (DC), Opioid Safety Activity Restrictions/Additional Instructions: - Monitor for hypercoagulable events -Continue to be mobile -If you develop any hypercoagulability events such as calf pain calf swelling, or sudden onset shortness of breath or bloody cough go immediately to the emergency room -Please follow-up with pulmonary in a month -Follow-up with oncology in 1 month -Use albuterol as needed for shortness of breath Discharge Attestations Time Spent in Discharge Care*: greater than 30 min Quality Metrics Clinical Quality Measures [ No reported AMI, CVA or VTE this stay] Coding Level of Care Code 16714 Total time (in minutes) for Discharge: 40 Diagnoses Acute respiratory failure with hypoxemia J96.01 Pneumonia due to COVID-19 virus U07.1; J12.82 Diabetes mellitus E11.9 Hypertension I10 Elevated brain natriuretic peptide (BNP) level R79.89
[2022-08-25 12:38] LABS: Glucose Point of Care 237 mg/dL (70-110)
--- NOTE | 2022-08-25 12:43 | PC.NURSE ---
Discharge orders in on patient. Ultrasound ordered on legs which has to be done before patient can be discharged.
[2022-08-25] MEDS: dexamethasone 10 mg/mL INJ 6 MG IVP (12:44)
--- NOTE | 2022-08-25 15:55 | PC.NURSE ---
Spoke with patient about 10 minutes ago. Ultrasound was completed 20-30 minutes prior but results are not back yet. Dr. Soto wantspatient to wait for results.
--- NOTE | 2022-08-25 17:14 | PC.NURSE ---
Discussed discharge at 1701 with patient and spouse. Went over reasons here, new medications, continued medications and to call the offices of the physicians listed to make a follow up appointment for the printed time frames. Verbalized understanding.
== END 2022-08-25 17:21 | disposition home or self-care (01) | DRG 177 ==
LOC: ER 12:32 → MEDSURG 13:43
PROVIDERS: Admitting Provider Internal Medicine; Emergency Provider Family Medicine; PCP Family Medicine; Visit Provider Family Medicine
DX: U07.1 COVID-19 (principal); J12.82 Pneumonia due to coronavirus disease 2019; J96.01 Acute respiratory failure with hypoxia; Z79.84 Long term (current) use of oral hypoglycemic drugs; Z85.3 Personal history of malignant neoplasm of breast; E11.9 Type 2 diabetes mellitus without complications; E78.5 Hyperlipidemia, unspecified; I10 Essential (primary) hypertension; E03.9 Hypothyroidism, unspecified; Z85.72 Personal history of non-Hodgkin lymphomas; Z92.3 Personal history of irradiation; Z90.12 Acquired absence of left breast and nipple; I34.0 Nonrheumatic mitral (valve) insufficiency; R79.89 Other specified abnormal findings of blood chemistry
CPT/HCPCS: 36415; 36416; 36600; 71045; 71275; 80048; 80051; 80053; 81001; 82330; 82805; 82962; 83735; 83880; 84145; 84484; 85025; 85378; 86140; 87040; 87635; 93005; 93306; 93970; 94640; 96365; 96372; 96375; 99285; J0248; J0696; J1100; J1650; J1815; J1940; J7613; J7644; Q9967

== ENCOUNTER 2022-09-21 19:05 | Inpatient (IN) | payer MEDICARE, SELFPAY ==
--- NOTE | 2022-09-21 19:10 | ED_ITS ---
HPI - Fall General: Chief Complaint: Fall Stated Complaint: FALL WITH HIP DISLOCATION Time Seen by Provider: 09/21/22 19:09 History of Present Illness: Ms. Rm is a 77-year-old lady presenting to the emergency department for fall with hip pain. She reports being at baseline health and slipped while walking down steps. She thinks she primarily landed on her left however has had right hip pain and inability to walk. Moderate to severe in intensity. Sharp. Denies distal movement or sensory changes. No other specific changes in health, exacerbating, or alleviating factors pam ntified. Onset (ago): minute(s) Fall from: standing Loss of consciousness: None Prolonged down time: no Symptoms prior to fall: none Location of injury - extremities: Right: thigh, knee and lower leg Severity: severe Quality: stabbing and aching Associated symptoms-after fall: Reports no associated symptoms Review of Systems General: Reports: 10 or more systems reviewed and unremarkable except in HPI and below PFSH ED PFSH: Medical History Breast cancer Closed intertrochanteric fracture of right femur Diabetes mellitus Fall Hyperlipidemia Hypertension Hypothyroidism Hypoxia Injury of ankle, right Lateral malleolar fracture Lymphoma History of cutaneous lymphoma, 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 No otorrhea or rhinorrhea. Jaw alignment normal. Dentition baseline. No obvious bony step-offs. No septal hematoma. No evidence of ocular entrapment. HENMT: COMMON NORMALS: normocephalic and atraumatic HEAD & SCALP: normocephalic and atraumatic Eye: COMMON NORMALS: conjunctivae normal CONJUNCTIVA: Yes conjunctivae normal SCLERA: sclerae normal Neck/C-Spine: COMMON NORMALS: supple GENERAL: Yes trachea midline Resp: COMMON NORMALS: normal respiratory effort and clear to auscultation bilaterally EFFORT & INSPECTION: Yes able to speak in complete sentences AUSCULTATION: clear to auscultation bilaterally Cardio: COMMON NORMALS: regular rate and regular rhythm RATE: regular rate RHYTHM: regular rhythm GI: COMMON NORMALS: Soft to palpation PALPATION: Yes Soft to palpation and No Tenderness to palpation present (GI) Extremity: NARRATIVE EXTREMITY EXAM: Right leg externally rotated and shortened, tenderness palpation in the tr ochanteric region. No evidence of open injury. Distal CMS intact. GENERAL: Yes normal exam except as noted and No edema Neuro: COMMON NORMALS: moves all extremities SENSORIUM/ORIENTATION: Yes alert and No Orientation impaired Psych: COMMON NORMALS: mental status grossly normal and Normal thought process present THOUGHT PROCESS: Normal thought process present Course Vital Signs: Vital signs: Vital Signs Temperature 98.4 F 09/25/22 15:11 Pulse Rate 89 09/25/22 15:11 Respiratory Rate 18 09/25/22 15:11 Blood Pressure 145/74 09/25/22 15:11 Pulse Oximetry 98 09/25/22 15:11 Oxygen Delivery Me thod 09/25/22 07:58 Oxygen Flow Rate 2 09/24/22 20:00 MDM - Fall Medical Decision Making 77-year-old lady presenting with fall due to trip and fall and right hip pain. Unable to ambulate after injury. Patient is neurovascularly intact and head to toe exam performed as noted above. Labs notable for leukocytosis which is likely not clinically significant given absence of infectious symptoms, hemoglobin normal, normal platelet count. Normal coagulation studies. Metabolic panel with mild hyponatremia, no other significant derangement. X-rays reveal right intertrochanteric fracture, no other fracture identified in the tib-fib or femur x-ray. Patient is requiring oxygen which I am uncertain of the etiology of given chest x-ray without evidence of thoracic injury. Her respiratory effort does not appear to suppressed due to opioids. Therefore additional imaging is felt to be appropriate, CT imaging negative for acute traumatic injury with exception of hip fracture is noted. She does have patchiness in the lung garcía though she endorses a history of COVID in August which may be residual findings. She denies respiratory infectious symptoms or shortness of breath. During ED course patient treated with analgesia. Initially patient consented to transfer due to prior surgery at [facility] of the left knee however her original operating surgeon is not on-call so she decided to be admitted here. I discussed with Dr. Donnelly of the orthopedic service who will consult. The results of ED evaluation were discussed with the patient including plan for admission due to requirement for level of care not available if discharged to prevent significant worsening/deterioration. Patient agreeable with plan. Discussed with hospitalist service who was agreeable to admit patient. Medical Records I reviewed the patient's medical records. Lab Data I reviewed the patient's lab results. 09/21/22 20:07 09/21/22 20:07 Radiology Impressions Femur X-Ray 09/21/22 19:12 IMPRESSION: No acute findings. Tibia/Fibula X-Ray 09/21/22 19:12 IMPRESSION: There is no evidence for acute fracture or malalignment. If there is desire for further evaluation, a CT scan could be performed. Chest X-Ray 09/21/22 19:17 IMPRESSION: No acute traumatic injury. Cervical Spine CT 09/21/22 20:26 IMPRESSION: There is no evidence for fracture or facet dislocation. Chest/Abdomen/Pelvis CT 09/21/22 20:26 IMPRESSION: 1. No acute chest trauma identified. 2. Hazy areas of diffuse bilateral atelectasis, edema or pneumonia and very small effusions are present. These findings have improved from 1 month ago. 3. A few calcified and noncalcified lung nodules are again seen, which should be followed up in 3-6 months. 4. Other chronic findings. IMPRESSION: 1. Right hip acute surgical fracture, intertrochanteric. 2. No other acute abdominal or pelvic trauma identified. 3. Fecal filled colon, atherosclerosis, and known splenic artery aneurysm. Numerous other chronic findings above. These should be followed up in 1 year. 4. See above chest CT report as well. Head CT 09/21/22 20:26 IMPRESSION: There are no acute concerning abnormalities. Hip/Pelvis X-Ray 09/22/22 14:00 IMPRESSION: 1. ORIF involving an intertrochanteric fracture of the right hip. Alignment is satisfactory for healing. Knee X-Ray 09/22/22 16:16 IMPRESSION: Degenerative changes and bony demineralization.. No fracture or acute osseous abnormality. Ankle X-Ray 09/22/22 16:17 IMPRESSION: Nondisplaced oblique fracture within the distal right fibula or lateral malleolus that is only readily identified on the lateral view. Laboratory Results WBC 14.1 10^3/uL (4.0-10.0) H 09/21/22 20:07 RBC 5.07 10^6/uL (4.1-5.3) 09/21/22 20:07 Hgb 14.8 g/dL (11.5-15.3) 09/21/22 20:07 Hct 47.4 % (37.0-47.0) H 09/21/22 20:07 MCV 93.5 fl (81-99) 09/21/22 20:07 MCH 29.2 pg (28.0-34.0) 09/21/22 20:07 MCHC 31.2 g/dL (30.0-36.0) 09/21/22 20:07 RDW 14.9 % (12.1-15.1) 09/21/22 20:07 Plt Count 230 10^3/cmm (130-400) 09/21/22 20:07 MPV 9.3 fL (7.4-10.4) 09/21/22 20:07 Neut % (Auto) 71.8 % 09/21/22 20:07 Lymph % (Auto) 18.2 % 09/21/22 20:07 [place] % (Auto) 5.7 % 09/21/22 20:07 Eos % (Auto) 3.3 % 09/21/22 20:07 Baso % (Auto) 0.5 % 09/21/22 20:07 Neut # (Auto) 10.11 10^3/uL (1.8-7.7) H 09/21/22 20:07 Lymph # (Auto) 2.6 10^3/uL (0.8-4.8) 09/21/22 20:07 [place] # (Auto) 0.8 10^3/uL (0.2-0.9) 09/21/22 20:07 Eos # (Auto) 0.5 10^3/uL (0.0-0.8) 09/21/22 20:07 Baso # (Auto) 0.1 10^3/uL (0.0-0.1) 09/21/22 20:07 Nucleated RBC % (auto) 0 % 09/21/22 20:07 Nucleated RBCs # 0.0 /100WBC 09/21/22 20:07 PT 12.80 SECONDS (12.1-14.9) 09/21/22 20:07 INR 0.94 (0.8-1.2) 09/21/22 20:07 APTT 25.4 SECONDS (23.9-36.7) 09/21/22 20:07 Sodium 134 mmol/L (136-145) L 09/21/22 20:07 Potassium 4.8 mmol/L (3.5-5.1) 09/21/22 20:07 Chloride 98 mmol/L (98-107) 09/21/22 20:07 Carbon Dioxide 26 mmol/L (22-29) 09/21/22 20:07 Anion Gap 14.8 (5-19) 09/21/22 20:07 BUN 13 mg/dL (8-23) 09/21/22 20:07 Creatinine 0.8 mg/dL (0.5-0.9) 09/21/22 20:07 GFR Calculation Not Reportable 09/21/22 20:07 Glucose 266 mg/dL (65-115) H 09/21/22 20:07 Calculated Osmolality 287 mOsm/kg (285-295) 09/21/22 20:07 Calcium 8.9 mg/dL (8.5-10.5) 09/21/22 20:07 Total Bilirubin 0.4 mg/dL (0.15-1.2) 09/21/22 20:07 AST 27 U/L (0-32) 09/21/22 20:07 ALT 18 U/L (0-33) 09/21/22 20:07 Alkaline Phosphatase 128 U/L (35-105) H 09/21/22 20:07 Total Protein 7.8 g/dL (6.6-8.7) 09/21/22 20:07 Albumin 4.2 g/dL (3.5-5.2) 09/21/22 20:07 Globulin 3.6 g/dL (1.3-4.6) 09/21/22 20:07 Procalcitonin 0.03 ng/mL (0-0.5) 09/21/22 20:07 SARS-CoV-2 Ag (Rapid) negative (Negative) 09/21/22 22:48 Discharge Plan Discharge Patient Disposition: Admitted As Inpatient Admit Provider: Gilmar Stovall Clinical Impression: Fall, Closed intertrochanteric fracture of right femur Condition: Stable Discharge Activity: Limit activity as instructed, Use walker/crutches as instructed and As per PT/OT instructions Coding Level of Care Code ED Manager Business Systems for Gerardo Ladd
--- NOTE | 2022-09-21 19:12 | XRR_ITS ---
PROCEDURE INFORMATION: Exam: XR Right Hip Exam date and time: 09/21/2022 7:27 PM Age: 77 years old Clinical indication: Injury or trauma; Fall; Fracture of pelvis & hip; Right; Traumatic fracture; Articular head of femur; Closed fracture; Additional info: Fall, hip pain, w/ pelvis 1 vw please TECHNIQUE: Imaging protocol: Radiologic exam of the right hip. Views: 1 view hip with pelvis when performed. COMPARISON: No relevant prior studies available. FINDINGS: Bones/joints: There is an inter trochanteric fracture of the proximal right femur. There is osteopenia. No dislocation. Soft tissues: Unremarkable. XR/XR hip RT 2-3V wo/w pel* [id number] IMPRESSION: There is an inter trochanteric fracture of the proximal right femur. If there is desire for further evaluation, a CT scan could be performed.
--- NOTE | 2022-09-21 19:12 | XRR_ITS ---
PROCEDURE INFORMATION: Exam: XR Right Tibia and Fibula Exam date and time: 09/21/2022 7:34 PM Age: 77 years old Clinical indication: Injury or trauma; Fall; Fracture, traumatic; Closed fracture; Hip; Right; Additional info: Fall, pain TECHNIQUE: Imaging protocol: Radiologic exam of the right tibia and fibula. Views: 2 views. COMPARISON: [place] [id number] 08/25/2022 2:23 PM FINDINGS: Bones/joints: There is osteopenia. No acute fracture. Soft tissues: Normal. XR/XR tibia fibula RT 2V [id number] IMPRESSION: There is no evidence for acute fracture or malalignment. If there is desire for further evaluation, a CT scan could be performed.
--- NOTE | 2022-09-21 19:12 | XRR_ITS ---
PROCEDURE INFORMATION: Exam: XR Right Femur Exam date and time: 09/21/2022 7:32 PM Age: 77 years old Clinical indication: Injury or trauma; Fall; Fracture, traumatic; Closed fracture; Hip; Right; Additional info: Fall, leg pain TECHNIQUE: Imaging protocol: Radiologic exam of the right femur. Views: 2 views. COMPARISON: [place] [id number] 08/25/2022 2:23 PM FINDINGS: Bones/joints: Unremarkable. No acute fracture. There is osteopenia. Soft tissues: Unremarkable. XR/XR femur RT min 2V* [id number] IMPRESSION: No acute findings.
[2022-09-21 19:14] VITALS: PULSE 87; RESP 20; TEMP 36.7; O2SAT 82; BMI 34.9
--- NOTE | 2022-09-21 19:17 | XRR_ITS ---
PROCEDURE INFORMATION: Exam: XR Chest Exam date and time: 09/21/2022 7:25 PM Age: 77 years old Clinical indication: Pain; Other: Pre op; Additional info: Fall TECHNIQUE: Imaging protocol: Radiologic exam of the chest. Views: 1 view. COMPARISON: OT XR chest 1V portable [id number] 08/22/2022 7:44 AM FINDINGS: Lungs: There is bilateral interstitial lung disease. There are multiple right lung nodules. Pleural spaces: Unremarkable. No pleural effusion. No pneumothorax. Heart/Mediastinum: Unremarkable. No cardiomegaly. Bones/joints: Unremarkable. There are surgical clips in the left axilla. XR/XR chest 1V portable [id number] IMPRESSION: No acute traumatic injury.
[2022-09-21 19:32] VITALS: PULSE 87; RESP 20; TEMP 36.7; O2SAT 92
[2022-09-21 20:16] LABS: Basophils # 0.1 10^3/uL (0.0-0.1); Basophils % 0.5 %; Eosinophils # 0.5 10^3/uL (0.0-0.8); Eosinophils % 3.3 %; Hematocrit 47.4 % (37.0-47.0); Hemoglobin 14.8 g/dL (11.5-15.3); Lymphocytes # 2.6 10^3/uL (0.8-4.8); Lymphocytes % 18.2 %; Mean Corpuscular HGB Conc 31.2 g/dL (30.0-36.0); Mean Corpuscular Hemoglobin 29.2 pg (28.0-34.0); Mean Corpuscular Volume 93.5 fl (81-99); Mean Platelet Volume 9.3 fL (7.4-10.4); Monocytes # 0.8 10^3/uL (0.2-0.9); Monocytes % 5.7 %; Neutrophils # 10.11 10^3/uL (1.8-7.7); Neutrophils % 71.8 %; Nucleated Red Blood Cells % 0 %; Platelet Count 230 10^3/cmm (130-400); Red Blood Count 5.07 10^6/uL (4.1-5.3); Red Cell Distribution Width 14.9 % (12.1-15.1); White Blood Count 14.1 10^3/uL (4.0-10.0)
--- NOTE | 2022-09-21 20:26 | CTR_ITS ---
PROCEDURE INFORMATION: Exam: CT Cervical Spine Without Contrast Exam date and time: 09/21/2022 9:08 PM Age: 77 years old Clinical indication: Injury or trauma; Fall; Blunt trauma TECHNIQUE: Imaging protocol: Computed tomography of the cervical spine without contrast. Radiation optimization: All CT scans at this facility use at least one of these dose optimization techniques: automated exposure control; mA and/or kV adjustment per patient size (includes targeted exams where dose is matched to clinical indication); or iterative reconstruction. REPORTING DATA: Count of CT and Cardiac NM exams in prior 12 months: This patient has received 3 known CTs and 0 known cardiac nuclear medicine studies in the 12 months prior to the current study. COMPARISON: CT neck w con* [id number] 04/19/2021 11:38 AM RADIATION DOSE METRICS: Total DLP (mGy-cm): 341.4 FINDINGS: Bones/joints: No acute fracture. Normal alignment. Degenerative change is identified in the spine. There is disc space narrowing and osteophyte formation especially at C4/5, C5/6 and C6/7. Lungs: There is interstitial disease in the bilateral lung apices with mild ground-glass lung opacification. Soft tissues: Unremarkable. CT/CT cervical spin wo con* [id number] IMPRESSION: There is no evidence for fracture or facet dislocation.
--- NOTE | 2022-09-21 20:26 | CTR_ITS ---
PROCEDURE INFORMATION: Exam: CT Chest With Contrast; Diagnostic Exam date and time: 09/21/2022 9:15 PM Age: 77 years old Clinical indication: Injury or trauma; Fall; Generalized; Blunt trauma (contusions or hematomas); Prior surgery; Surgery type: Left mastectomy; Rosalina; Hyst; Patient HX: HX of breast CA; Lymphoma; Additional info: Fall, hypoxia TECHNIQUE: Imaging protocol: Diagnostic computed tomography of the chest with contrast. Radiation optimization: All CT scans at this facility use at least one of these dose optimization techniques: automated exposure control; mA and/or kV adjustment per patient size (includes targeted exams where dose is matched to clinical indication); or iterative reconstruction. Contrast material: OMNI 350; Contrast volume: 100 ml; Contrast route: INTRAVENOUS (IV); REPORTING DATA: Count of CT and Cardiac NM exams in prior 12 months: This patient has received 3 known CTs and 0 known cardiac nuclear medicine studies in the 12 months prior to the current study. COMPARISON: CT angio chest PE protcl [id number] 08/22/2022 9:58 AM RADIATION DOSE METRICS: Total DLP (mGy-cm): 346.2 FINDINGS: Lungs: Mild venous congestion with diffuse interstitial pulmonary edema. Moderate areas of patchy bilateral mid to lower lung atelectasis or airspace disease. A few minute calcified lung nodules are seen incidentally. A few scattered ill-defined nodular lung densities are again visualized. Compared to 1 month ago, the findings are mildly improved. Pleural spaces: Trace bilateral pleural effusions. No pneumothorax. Heart: The heart is upper limits normal size. No pericardial effusion. Lymph nodes: No bulky mediastinal or hilar lymphadenopathy noted. Lymph node sizes have improved considerably from prior. Vasculature: Advanced diffuse vascular calcification noted. Bones/joints: Moderate spine DJD. Soft tissues: Left mastectomy. Left axillary clips. PROCEDURE INFORMATION: Exam: CT Abdomen And Pelvis With Contrast Exam date and time: 09/21/2022 9:15 PM Age: 77 years old Clinical indication: Injury or trauma; Fall; Generalized; Blunt trauma (contusions or hematomas); Prior surgery; Surgery type: Left mastectomy; Rosalina; Hyst; Patient HX: HX of breast CA; Lymphoma; Additional info: Fall, hypoxia TECHNIQUE: Imaging protocol: Computed tomography of the abdomen and pelvis with contrast. Radiation optimization: All CT scans at this facility use at least one of these dose optimization techniques: automated exposure control; mA and/or kV adjustment per patient size (includes targeted exams where dose is matched to clinical indication); or iterative reconstruction. Contrast material: OMNI 350; Contrast volume: 100 ml; Contrast route: INTRAVENOUS (IV); REPORTING DATA: Count of CT and Cardiac NM exams in prior 12 months: This patient has received 3 known CTs and 0 known cardiac nuclear medicine studies in the 12 months prior to the current study. COMPARISON: CR (PELVIS, ) 09/21/2022 7:27 PM RADIATION DOSE METRICS: Total DLP (mGy-cm): 817.6 FINDINGS: Tubes, catheters and devices: Rolon catheter present. Lungs: Lung base opacities and effusions, as above. Diaphragm: Tiny hiatal hernia. Liver: Unremarkable. No enhancing mass. Gallbladder and bile ducts: Absent gallbladder. Pancreas: Unremarkable with no suspicious mass. No ductal dilation. Spleen: At the splenic hilum, a largely thrombosed aneurysm is again seen, measuring about 2.2 cm. No rupture or change in size. Adrenal glands: Normal. No mass. Kidneys and ureters: No solid renal mass or hydronephrosis. Stomach and bowel: Moderately fecal filled colon. No small bowel dilation. Appendix: No evidence of appendicitis. Intraperitoneal space: Unremarkable. No free air. No suspicious fluid collection. Vasculature: Advanced diffuse vascular calcification noted. Lymph nodes: No enlarged lymph nodes. Urinary bladder: Mild bladder wall thickening. Reproductive: Absent uterus. Bones/joints: Displaced right hip intertrochanteric acute fracture. No femoral head dislocation. Soft tissues: No acute or suspicious finding noted. CT/CT chest abdpel w/*[id number] IMPRESSION: 1. No acute chest trauma identified. 2. Hazy areas of diffuse bilateral atelectasis, edema or pneumonia and very small effusions are present. These findings have improved from 1 month ago. 3. A few calcified and noncalcified lung nodules are again seen, which should be followed up in 3-6 months. 4. Other chronic findings. IMPRESSION: 1. Right hip acute surgical fracture, intertrochanteric. 2. No other acute abdominal or pelvic trauma identified. 3. Fecal filled colon, atherosclerosis, and known splenic artery aneurysm. Numerous other chronic findings above. These should be followed up in 1 year. 4. See above chest CT report as well.
--- NOTE | 2022-09-21 20:26 | CTR_ITS ---
PROCEDURE INFORMATION: Exam: CT Head Without Contrast Exam date and time: 09/21/2022 9:08 PM Age: 77 years old Clinical indication: Injury or trauma; Fall; Blunt trauma (contusions or hematomas) TECHNIQUE: Imaging protocol: Computed tomography of the head without contrast. Radiation optimization: All CT scans at this facility use at least one of these dose optimization techniques: automated exposure control; mA and/or kV adjustment per patient size (includes targeted exams where dose is matched to clinical indication); or iterative reconstruction. REPORTING DATA: Count of CT and Cardiac NM exams in prior 12 months: This patient has received [address] and 0 known cardiac nuclear medicine studies in the 12 months prior to the current study. COMPARISON: MR orbit face neck wo/w* [id number] 03/31/2021 10:45 AM RADIATION DOSE METRICS: Total DLP (mGy-cm): 1193.4 FINDINGS: Brain: Mild volume loss and white matter disease are identified. There is no acute infarct or edema. No hemorrhage. Cerebral ventricles: No ventriculomegaly. Paranasal sinuses: There is mild ethmoid sinus opacification. Mastoid air cells: Visualized mastoid air cells are well aerated. Bones/joints: Unremarkable. No acute fracture. Soft tissues: Unremarkable. CT/CT head wo con* [id number] IMPRESSION: There are no acute concerning abnormalities.
[2022-09-21 20:29] LABS: INR 0.94 (0.8-1.2)
[2022-09-21 20:30] LABS: Partial Thromboplastin Time 25.4 SECONDS (23.9-36.7)
[2022-09-21] MEDS: iohexol 350 mg/mL 500 mL Btl (per mL) IV (20:30)
[2022-09-21 20:35] LABS: Alanine Aminotransferase 18 U/L (0-33); Albumin Level 4.2 g/dL (3.5-5.2); Alkaline Phosphatase 128 U/L (35-105); Anion Gap 14.8 (5-19); Aspartate Amino Transferase 27 U/L (0-32); Blood Urea Nitrogen 13 mg/dL (8-23); Calcium 8.9 mg/dL (8.5-10.5); Carbon Dioxide 26 mmol/L (22-29); Chloride 98 mmol/L (98-107); Globulin 3.6 g/dL (1.3-4.6); Glucose 266 mg/dL (65-115); Osmolality Calculated 287 mOsm/kg (285-295); Potassium 4.8 mmol/L (3.5-5.1); Sodium 134 mmol/L (136-145); Total Bilirubin 0.4 mg/dL (0.15-1.2); Total Protein 7.8 g/dL (6.6-8.7)
[2022-09-21] MEDS: morphine 4 mg/mL SDV 1 mL IVP ×2 (21:38→23:50)
[2022-09-21 23:16] LABS: SARS Covid-2 Antigen negative (Negative)
[2022-09-21 23:32] VITALS: BP 170/78; PULSE 88; RESP 20; O2SAT 94
[2022-09-22] VITALS (25 sets, daily range): BP systolic 94–165; BP diastolic 46–78; PULSE 66–87; RESP 14–19; TEMP 36.3–37; O2SAT 90–99; BMI 34.9
--- NOTE | 2022-09-22 00:51 | P.HP_ITS ---
Providers/Chief Complaint Admitting Physician: Gilmar Stovall Primary Care Provider: Miguel Dale MD Chief Complaint: FALL WITH HIP DISLOCATION History of Present Illness Pleasant 77-year-old lady came into ER for evaluation after slipping on the back steps, falling down, was having pain in the right hip, could not get up, sat in mild for several hours, in ER finding of right intratrochanteric fracture. In ER also noted with new oxygen requirement, saturation down to 82% just at rest. Noted leukocytosis 14.1, although denies cough, sputum production, other respira tory symptoms or symptoms that may suggest upper or lower respiratory tract acute infection. CT chest abdomen pelvis in ED without acute chest trauma, hazy area of diffuse bilateral atelectasis, edema or pneumonia and very small effusions present, improved from 1 month ago. A few calcified and noncalcified lung nodules again seen, should be followed up in 3-6 months. Other chronic findings. In the abdomen right intertrochanteric hip fracture, fecal filled colon, atherosclerosis, known splenic artery aneurysm. Numerous other chronic findings which should be followed up in 1 year. Review of Systems Const: Denies: fever(s), chills, body aches or malaise ENMT: Denies: throat pain or ear or mastoid pain Card: Denies: chest pain, edema, pre-syncope or dyspnea on exertion Resp: Denies: dyspnea, productive cough, change in phlegm color or hemoptysis GI: Denies: abdominal pain, nausea, vomiting, diarrhea, constipation, hematochezia or melena : Denies: flank pain, urinary frequency or hematuria Musc: Reports: joint pain (R hip); Denies: back pain, joint swelling or joint redness Skin/Breast: Denies: rash or new lesions Neuro: Denies: headache(s), numbness in extremities, weakness in extremities, dizziness, confusion or seizure-like activity Medications/Allergies Home Medications Medication Instructions Recorded Confirmed Last Taken Type amlodipine 10 mg tablet 10 mg PO DAILY 08/22/22 08/27/22 08/22/22 History clonidine HCl 0.3 mg tablet 0.3 mg PO BID 08/22/22 08/27/22 08/22/22 History glipizide 10 mg tablet 10 mg PO DAILY 08/22/22 08/27/22 08/22/22 History latanoprost 0.005 % eye drops 1 drp ophthalmic (eye) BEDTIME 08/22/22 08/27/22 08/21/22 History levothyroxine 88 mcg tablet 88 mcg PO DAILY 08/22/22 08/27/22 08/22/22 History lisinopril 40 mg tablet 40 mg PO BID 08/22/22 08/27/22 08/22/22 History metformin 500 mg tablet,extended 1,000 mg PO BID 08/22/22 08/27/22 08/22/22 History release 24 hr metoprolol succinate 200 mg 200 mg PO BEDTIME 08/22/22 08/27/22 08/21/22 History tablet,extended release 24 hr oxybutynin chloride 10 mg 10 mg PO DAILY 08/22/22 08/27/22 08/22/22 History tablet,extended release 24 hr pioglitazone 45 mg tablet 45 mg PO DAILY 08/22/22 08/27/22 08/22/22 History semaglutide 7 mg tablet (Rybelsus) 7 mg PO DAILY 08/22/22 08/27/22 08/22/22 History simvastatin 10 mg tablet 10 mg PO DAILY 08/22/22 08/27/22 08/21/22 History albuterol sulfate 90 mcg/actuation 1 inh inhalation Q6H PRN shortness 08/25/22 08/27/22 Unknown Rx aerosol inhaler (ProAir HFA) of breath or wheezing #8.5 grams Allergies Allergy/AdvReac Type Severity Reaction Status Date / Time No Known Allergies Allergy Verified 04/28/20 23:04 PFSH Acute PFSH: Medical History Breast cancer Diabetes mellitus Hyperlipidemia Hypertension Hypothyroidism Lymphoma History of cutaneous lymphoma, 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 Const: COMMON NORMALS: patient oriented x3 and alert GENERAL APPEARANCE: cooperative NUTRITIONAL APPEARANCE: obese ORIENTATION/CONSCIOUSNESS: Yes awake HENMT: COMMON NORMALS: oropharynx normal Neck/C-Spine: COMMON NORMALS: no JVD Resp: COMMON NORMALS: normal respiratory effort and clear to auscultation bilaterally AUSCULTATION: clear to auscultation bilaterally Cardio: COMMON NORMALS: no JVD, regular rhythm, S1 normal heart sound present, S2 normal heart sound present and No murmurs present (Cardio) RHYTHM: regular rhythm HEART SOUNDS: S1 normal heart sound present and S2 normal heart sound present GI: COMMON NORMALS: Normal to inspection, nondistended, normoactive bowel sounds present, Soft to palpation and non-tender PALPATION: Yes Soft to palpation Extremity: COMMON NORMALS: no joint enlargement and no pedal edema OTHER: Shortened R extremity. Perfused, warm to touch. Moves toes. Neuro: COMMON NORMALS: patient oriented x3 and moves all extremities SENSORIUM/ORIENTATION: Yes alert Skin: COMMON NORMALS: no rashes or lesions noted GENERAL SKIN EXAM: no rashes or lesions noted Urinary Catheter Management: Rolon: Cath Placed During This Visit: yes Urinary Catheter Date of Insertion: 09/21/22 Urinary Catheter Time of Insertion: 20:15 Data 09/21/22 20:07 09/21/22 20:07 A&P Assessment and plan (1) Closed intertrochanteric fracture of right femur: Mechanical fall, slipped on back steps. Otherwise apart from recovering from COVID back in August denies any other acute illness or worsening of chronic illness. Noted hypoxic in ER as below. Denies chronic lung illness, no cardiac issues. Obesity, but denies sleep apnea. States has not been limited in ambulation, but has not left home since COVID. We will obtain baseline EKG. With hypoxia, [place] ptosis, we will empirically give antibiotics for now for possibility of pneumonia, although acute pneumonia is probably less likely. Otherwise not much else worth investigating or optimizing that would be worth delaying surgical repair of her hip. NPO. Orthopedics for evaluation. 1 dose of heparin for now in anticipation of likely surgical intervention. SCD. Case management consultation. (2) Hypoxia: Noted to be hypoxic in ER at rest down to 80% saturation. He is noted to have some leukocytosis, does not have respiratory symptoms of ongoing infection. CT scan reviewed, noted areas of patchy atelectasis and/or infiltrate, small effusions, cannot entirely exclude pneumonia, although suspicion is lower. For now empirically start ceftriaxone and azithromycin, will request repeat CBC, please follow-up symptoms, will also request procalcitonin. If no further symptoms, leukocytosis improving, afebrile, procalcitonin with elevation, consider de-escalation/continuation of antibiotic. She is recovering from COVID from back in August. Consider home O2 evaluation prior to discharge. She has follow-up scheduled with pulmonology sounds like for lung nodules. (3) Hypertension: Would benefit from optimization. Continue metoprolol, lisinopril, clonidine, amlodipine. Has not had any of her evening meds yet. Continue follow-up of blood pressures. Resume metoprolol. Clonidine. Hold lisinopril for now to avoid perioperative hypotension. Plan Alk phos elevation: Possibly secondary to acute fracture. Previously normal. Requesting follow-up CMP. Follow-up with PCP for resolution. Lung nodules: Follow-up with pulmonology. Consider reimaging in 3-6 months. 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 Acute abdominal findings on CT with recommendation for 1 year follow-up. DM2: SSI. Accu-Cheks requested. HLD Hypothyroidism History of cutaneous lymphoma History of breast cancer Discussed with ER physician. Documentation reviewed. Attestations Medical Necessity Statement*: Admission of over 2 midnights anticipated for assessment management of right hip fracture, new hypoxia Diagnoses Closed intertrochanteric fracture of right femur S72.141A Hypoxia R09.02 Hypertension I10
[2022-09-22] MEDS: heparin 5,000 unit/mL INJ 1 mL 5000 UNIT SUBCUT (02:28)
[2022-09-22] MEDS: morphine 4 mg/mL SDV 1 mL IVP (02:28)
[2022-09-22] MEDS: azithromycin 500 MG in sodium chloride 0.9% 250 ML 250 MG IV (02:28)
[2022-09-22] MEDS: cefTRIAXone 1,000 MG in sodium chloride 0.9% (plus) 50 ML 100 MG IV (02:29)
[2022-09-22 02:38] LABS: Procalcitonin 0.03 ng/mL (0-0.5)
--- NOTE | 2022-09-22 03:36 | ECG_ITS ---
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 Measurements Intervals [place] Rate: 86 P: 73 LA: 178 QRS: 55 QRSD: 74 T: 61 QT: 374 QTc: 448 Interpretive Statements SINUS RHYTHM MINIMAL VOLTAGE CRITERIA FOR LVH, CONSIDER NORMAL VARIANT [MEETS CRITERIA IN ONE OF: R(aVL), S(V1), R(V5), R(V5/V6)+S(V1)] Compared to ECG 08/22/2022 09:34:18 No significant changes Electronically Signed On 09-22-2022 15:25:28 CDT by Satinder Mistry M.D. [id number]
[2022-09-22 07:10] LABS: Glucose Point of Care 243 mg/dL (70-110)
[2022-09-22] MEDS: levothyroxine 88 mcg Tablet PO (08:28)
[2022-09-22] MEDS: atorvastatin 40 mg Tablet 20 MG PO (08:28)
[2022-09-22] MEDS: oxybutynin chloride XL 5 MG TABLET 10 MG PO (08:28)
[2022-09-22] MEDS: cloNIDine 0.1 mg Tablet 0.3 MG PO ×2 (08:29→17:28)
[2022-09-22 11:53] LABS: Glucose Point of Care 221 mg/dL (70-110)
[2022-09-22] MEDS: sodium chloride 0.9% 1,000 ML 30 ML IV (12:06)
--- NOTE | 2022-09-22 12:20 | ANES.PREANE2 ---
Pre-Anesthetic Assessment Height/Weight: Height 1.65 m Weight 95.254 kg Temp Pulse Resp BP Pulse Ox O2 Del Method O2 Flow Rate 98.6 F 87 17 165/77 94 2 09/22/22 08:00 09/22/22 08:00 09/22/22 08:00 09/22/22 08:29 09/22/22 08:00 09/22/22 04:51 09/22/22 08:00 Operation Date: 09/22/22 13:00 Proposed Procedures p Open Reduction Hip(Right) - Lesa Donnelly MD Familial anesthetic complications: None Was Beta Pankaj taken within 24 hours: Yes Was Clonidine taken within 24 hours: N/A Last intake: Intake Last Liquid Date 09/21/22 Last Liquid Time 00:00 Last Solid Date 09/21/22 Last Solid Time 12:00 Social No alcohol and No tobacco Exam alert, oriented x 3, clear to auscultation bilaterally and regular rate & rhythm Airway Mallampati: Class I Dentition: partials Pulmonary Covid back in august- supposed to see Dr Datar at some point CV/HEM Hypertension Metabolic Diabetes Mellitus, Hyperlipidemia and Thyroid Disease Anesthetic Plan ASA status: 3 Anesthesia: General Risk of > 500 ml blood loss (7ml/kg in children): No Medications/Allergies Home Medications Medication Instructions Recorded Confirmed Last Taken Type amlodipine 10 mg tablet 10 mg PO DAILY 08/22/22 09/22/22 08/22/22 History clonidine HCl 0.3 mg tablet 0.3 mg PO BID 08/22/22 09/22/22 08/22/22 History glipizide 10 mg tablet 10 mg PO DAILY 08/22/22 09/22/22 08/22/22 History latanoprost 0.005 % eye drops 1 drp ophthalmic (eye) BEDTIME 08/22/22 09/22/22 08/21/22 History levothyroxine 88 mcg tablet 88 mcg PO DAILY 08/22/22 09/22/22 08/22/22 History lisinopril 40 mg tablet 40 mg PO BID 08/22/22 09/22/22 08/22/22 History metformin 500 mg tablet,extended 1,000 mg PO BID 08/22/22 09/22/22 08/22/22 History release 24 hr metoprolol succinate 200 mg 200 mg PO BEDTIME 08/22/22 09/22/2208/21/23 History tablet,extended release 24 hr oxybutynin chloride 10 mg 10 mg PO DAILY 08/22/22 09/22/22 08/22/22 History tablet,extended release 24 hr pioglitazone 45 mg tablet 45 mg PO DAILY 08/22/22 09/22/22 08/22/22 History semaglutide 7 mg tablet (Rybelsus) 7 mg PO DAILY 08/22/22 09/22/22 08/22/22 History simvastatin 10 mg tablet 10 mg PO QPM 08/22/22 09/22/22 08/21/22 History albuterol sulfate 90 mcg/actuation 1 inh inhalation Q6H PRN shortness 08/25/22 09/22/22 Unknown Rx aerosol inhaler (ProAir HFA) of breath or wheezing #8.5 grams Allergies Allergy/AdvReac Type Severity Reaction Status Date / Time No Known Allergies Allergy Verified 09/22/22 08:05 Current Medications Generic Name Dose Route Start Last Admin Trade Name Freq PRN Reason Stop Dose Admin Atorvastatin Calcium 20 mg 09/22/22 09:00 09/22/22 08:28 Atorvastatin 40 Mg Tablet PO 20 mg DAILY GENNA Administration Clonidine HCl 0.3 mg 09/22/22 09:00 09/22/22 08:29 Clonidine 0.1 Mg Tablet PO 0.3 mg BID GENNA Administration Ceftriaxone Sodium 1,000 mg/ 50 mls @ 100 mls/hr 09/22/22 02:00 09/22/22 03:08 Sodium Chloride IV Infused Q24H GENNA Infusion Protocol Azithromycin 500 mg/ Sodium 250 mls @ 250 mls/hr 09/22/22 02:00 09/22/22 03:28 Chloride IV Infused Q24H GENNA Infusion Protocol Sodium Chloride 1,000 mls @ 30 mls/hr 09/22/22 12:00 09/22/22 12:06 Sodium Chloride 0.9% IV 09/23/22 11:59 30 mls/hr .Q24H GENNA Administration Insulin Human Lispro 0 unit 09/22/22 08:00 09/22/22 12:03 Insulin Lispro 100 Unit/1 Ml SUBCUT Not Given WM&BEDTIME GENNA Protocol Levothyroxine Sodium 88 mcg 09/22/22 09:00 09/22/22 08:28 Levothyroxine 88 Mcg Tablet PO 88 mcg DAILY GENNA Administration Morphine Sulfate 4 mg 09/21/22 22:13 09/22/22 02:28 Morphine 4 Mg/Ml Sdv 1 Ml IVP 4 mg Q1H PRN Administration pain Oxybutynin Chloride 10 mg 09/22/22 09:00 09/22/22 08:28 Oxybutynin Chloride Xl 5 Mg Tablet PO 10 mg DAILY GENNA Administration PFSH Anesthesia Medical History Breast cancer Diabetes mellitus Hyperlipidemia Hypertension Hypothyroidism Lymphoma History of cutaneous lymphoma, 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 Splenic artery aneurysm Surgical History H/O left mastectomy History of carpal tunnel surgery History of cholecystectomy History of hysterectomy Family History Other Diabetes Hypertension Social History Smoking and tobacco status: never smoked Alcohol intake: never Data Anesthesia 09/21/22 20:07 09/21/22 20:07 Short CBC 09/21/22 Range/Units 20:07 WBC 14.1 H (4.0-10.0) 10^3/uL Hgb 14.8 (11.5-15.3) g/dL Hct 47.4 H (37.0-47.0) % MCV 93.5 (81-99) fl Plt Count 230 (130-400) 10^3/cmm Neut % (Auto) 71.8 % Neut # (Auto) 10.11 H (1.8-7.7) 10^3/uL BMP 09/21/22 20:07 Sodium 134 L Potassium 4.8 Chloride 98 Carbon Dioxide 26 BUN 13 Creatinine 0.8 Glucose 266 H Calcium 8.9 Liver Function 09/21/22 Range/Units 20:07 Total Bilirubin 0.4 (0.15-1.2) mg/dL AST 27 (0-32) U/L ALT 18 (0-33) U/L Alkaline Phosphatase 128 H (35-105) U/L Albumin 4.2 (3.5-5.2) g/dL COVID Results 09/21/22 22:48 SARS-CoV-2 Ag (Rapid) negative Coags 09/21/22 20:07 PT 12.80 INR 0.94 APTT 25.4 Cardiac Studies: Echocardiogram 08/22/22
--- NOTE | 2022-09-22 12:28 | P.CONIM_ITS ---
Providers/Reason For Consult Consulting Physician/Specialty*: Lesa Donnelly MD Reason for Consult*: Right intertrochanteric hip fracture Requesting Physician: Dr. Elpidio Eden Attending Physician: Tammy Carrillo MD Primary Care Provider: Miguel Dale MD History of Present Illness History of Present Illness Thelma Rm is a 77 year old female who fell on her back steps. She was unable to get up, and she sat there for several hours. The patient was brought to the hospital emergency department where she was found to have a right intertrochanteric hip fracture. She also had some other medical issues which were evaluated by the medical service. She has been optimized for surgery at this time. Review of Systems General: Reports: 10 or more systems reviewed and unremarkable except in HPI and below Const: Denies: fever(s), chills, body aches or malaise ENMT: Denies: throat pain or ear or mastoid pain Card: Denies: chest pain, edema, pre-syncope or dyspnea on exertion Resp: Denies: dyspnea, productive cough, change in phlegm color or hemoptysis GI: Denies: abdominal pain, nausea, vomiting, diarrhea, constipation, hematochezia or melena : Denies: flank pain, urinary frequency or hematuria Musc: Reports: joint pain (R hip); Denies: back pain, joint swelling or joint redness Skin/Breast: Denies: rash or new lesions Neuro: Denies: headache(s), numbness in extremities, weakness in extremities, dizziness, confusion or seizure-like activity Medications/Allergies Home Medications Medication Instructions Recorded Confirmed Last Taken Type amlodipine 10 mg tablet 10 mg PO DAILY 08/22/22 09/22/22 08/22/22 History clonidine HCl 0.3 mg tablet 0.3 mg PO BID 08/22/22 09/22/22 08/22/22 History glipizide 10 mg tablet 10 mg PO DAILY 08/22/22 09/22/22 08/22/22 History latanoprost 0.005 % eye drops 1 drp ophthalmic (eye) BEDTIME 08/22/22 09/22/22 08/21/22 History levothyroxine 88 mcg tablet 88 mcg PO DAILY 08/22/22 09/22/22 08/22/22 History lisinopril 40 mg tablet 40 mg PO BID 08/22/22 09/22/22 08/22/22 History metformin 500 mg tablet,extended 1,000 mg PO BID 08/22/22 09/22/22 08/22/22 History release 24 hr metoprolol succinate 200 mg 200 mg PO BEDTIME 08/22/22 09/22/22 08/21/22 History tablet,extended release 24 hr oxybutynin chloride 10 mg 10 mg PO DAILY 08/22/22 09/22/22 08/22/22 History tablet,extended release 24 hr pioglitazone 45 mg tablet 45 mg PO DAILY 08/22/22 09/22/22 08/22/22 History semaglutide 7 mg tablet (Rybelsus) 7 mg PO DAILY 08/22/22 09/22/22 08/22/22 History simvastatin 10 mg tablet 10 mg PO QPM 08/22/22 09/22/22 08/21/22 History albuterol sulfate 90 mcg/actuation 1 inh inhalation Q6H PRN shortness 08/25/22 09/22/22 Unknown Rx aerosol inhaler (ProAir HFA) of breath or wheezing #8.5 grams Allergies Allergy/AdvReac Type Severity Reaction Status Date / Time No Known Allergies Allergy Verified 09/22/22 08:05 Current Medications Generic Name Dose Route Start Last Admin Trade Name Freq PRN Reason Stop Dose Admin Atorvastatin Calcium 20 mg 09/22/22 09:00 09/22/22 08:28 Atorvastatin 40 Mg Tablet PO 20 mg DAILY GENNA Administration Clonidine HCl 0.3 mg 09/22/22 09:00 09/22/22 08:29 Clonidine 0.1 Mg Tablet PO 0.3 mg BID GENNA Administration Ceftriaxone Sodium 1,000 mg/ 50 mls @ 100 mls/hr 09/22/22 02:00 09/22/22 03:08 Sodium Chloride IV Infused Q24H GENNA Infusion Protocol Azithromycin 500 mg/ Sodium 250 mls @ 250 mls/hr 09/22/22 02:00 09/22/22 03:28 Chloride IV Infused Q24H GENNA Infusion Protocol Sodium Chloride 1,000 mls @ 30 mls/hr 09/22/22 12:00 09/22/22 12:06 Sodium Chloride 0.9% IV 09/23/22 11:59 30 mls/hr .Q24H GENNA Administration Insulin Human Lispro 0 unit 09/22/22 08:00 09/22/22 12:03 Insulin Lispro 100 Unit/1 Ml SUBCUT Not Given WM&BEDTIME GENNA Protocol Levothyroxine Sodium 88 mcg 09/22/22 09:00 09/22/22 08:28 Levothyroxine 88 Mcg Tablet PO 88 mcg DAILY GENNA Administration Morphine Sulfate 4 mg 09/21/22 22:13 09/22/22 02:28 Morphine 4 Mg/Ml Sdv 1 Ml IVP 4 mg Q1H PRN Administration pain Oxybutynin Chloride 10 mg 09/22/22 09:00 09/22/22 08:28 Oxybutynin Chloride Xl 5 Mg Tablet PO 10 mg DAILY GENNA Administration PFSH Acute PFSH: Medical History Breast cancer Diabetes mellitus Hyperlipidemia Hypertension Hypothyroidism Lymphoma History of cutaneous lymphoma, 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 Splenic artery aneurysm Surgical History H/O left mastectomy History of carpal tunnel surgery History of cholecystectomy History of hysterectomy Family History Other Diabetes Hypertension Social History Smoking and tobacco status: never smoked Alcohol intake: never Vitals/I&O/Wt Last Vital Signs Temp 98.6 F 09/22/22 08:00 Pulse 87 09/22/22 08:00 Resp 17 09/22/22 08:00 BP 165/77 09/22/22 08:29 Pulse Ox 94 09/22/22 08:00 O2 Del Method 09/22/22 04:51 O2 Flow Rate 2 09/22/22 08:00 09/21/22 09/22/22 09/22/22 22:59 06:59 14:59 Intake Total 300 / 300 Output Total 600 / 600 Balance -300 / -300 Weight last 48 hrs Weight 210 lb Weight 210 lb Physical Exam Const: COMMON NORMALS: no acute distress, average body habitus, patient oriented x3 and alert GENERAL APPEARANCE: cooperative and comfortable ORIENTATION/CONSCIOUSNESS: Yes awake HENMT: COMMON NORMALS: normocephalic and atraumatic HEAD & SCALP: normocephalic and atraumatic Eye: GENERAL EYE: appearance normal, both eyes and all related structures Chest: COMMONS NORMALS: normal inspection of the chest Resp: COMMON NORMALS: normal respiratory effort EFFORT & INSPECTION: Yes able to speak in complete sentences and Yes symmetric chest movement Extremity: RIGHT LOWER EXTREMITY: Yes hip joint Right hip: Yes ROM (Tender to any range of motion.) and Yes neurovascular exam (Intact distally.), Yes knee joint (Patient notes pain in the knee as well) and Yes foot & digits (Painful range of motion.) Neuro: COMMON NORMALS: patient oriented x3 SENSORIUM/ORIENTATION: Yes alert Psych: COMMON NORMALS: mental status grossly normal APPEARANCE: Yes grossly normal ATTITUDE: Yes calm and Yes engaged ATTENTION/CONCENTRATION: Yes a ttention grossly intact Skin: COMMON NORMALS: no rashes or lesions noted GENERAL SKIN EXAM: no rashes or lesions noted Urinary Catheter Management: Rolon: Cath Placed During This Visit: yes Reason for Continuing Indwelling Catheter: Required Immobilization for Trauma or Surgery or Anesthesia Urinary Catheter Date of Insertion: 09/21/22 Urinary Catheter Time of Insertion: 20:15 Data 09/21/22 20:07 09/21/22 20:07 Xray Ortho: My impression: X-ray of the patient's right hip demonstrates a comminuted intratrochanteric hip fracture with minimal displacement. Additional imaging studies include right femur and right tib-fib, there are nonspecific right knee and right ankle imaging. The patient complains of discomfort in this area as well. A&P Assessment and plan (1) Closed intertrochanteric fracture of right femur: This 77-year-old woman was in her usual state of health when she fell at home suffering a right intratrochanteric hip fracture. The patient presented to the emergency department. She was complaining of right-sided leg pain, and imaging was obtained of the right hip, right femur, and right tib-fib. The right hip imaging demonstrated a comminuted intertrochanteric hip fracture. Imaging of the lower extremity demonstrated no evidence of fracture, but there was osteoarthritis in the knee and osteopenia throughout the leg. As she is complaining of knee pain and ankle pain, following surgery for her intertrochanteric hip fracture. We will obtain further imaging of the patient's right knee and right ankle and act accordingly. Risks and complications of surgery are discussed with her. She is consented for open reduction internal fixation right intertrochanteric hip fracture. Family is in the preop area with her and questions were answered. (2) Pain of right knee after injury: (3) Injury of ankle, right: Coding Level of Care Code Acute Code for [facility] Diagnoses Closed intertrochanteric fracture of right femur S72.141A Pain of right knee after injury M25.561 Injury of ankle, right S99.911A
[2022-09-22] MEDS: gabapentin 300 mg Capsule PO (12:33)
[2022-09-22] MEDS: CELEcoxib 200 mg Capsule 400 MG PO (12:33)
[2022-09-22] MEDS: acetaminophen 1,000 MG/100 ML PIGGYBACK 400 MG IV (12:34)
[2022-09-22] MEDS: ceFAZolin 2,000 MG in sodium chloride 0.9% (plus) 50 ML 100 MG IV ×2 (12:43→21:49)
--- NOTE | 2022-09-22 14:00 | XR_ITS ---
WS: [id number] Exam: XR hip RT 2-3V wo/w pel* [id number] Date/Time of Exam: 09/22/2022 2:00 PM Reason For Exam: Open reduction internal fixation right intertrochanteric hip Comparison 09/21/2022. There is an intertrochanteric fracture of the right hip stabilized with an intramedullary randall and fem oral neck screw. Alignment is satisfactory for healing. XR/XR hip RT 2-3V wo/w pel* [id number] IMPRESSION: 1. ORIF involving an intertrochanteric fracture of the right hip. Alignment is satisfactory for healing.
[2022-09-22] MEDS: ceFAZolin 1,000 mg SDV 1000 MG IRRIGATION (15:31)
[2022-09-22] MEDS: vancomycin 1,000 MG SDV 1000 MG INTRA-ARTI (15:33)
--- NOTE | 2022-09-22 16:16 | XRR_ITS ---
PROCEDURE INFORMATION: Exam: XR Right Knee Exam date and time: 09/22/2022 4:22 PM Age: 77 years old Clinical indication: Injury or trauma; Fall; Blunt trauma; Knee; Right; Additional info: Pain after fall TECHNIQUE: Imaging protocol: Radiologic exam of the right knee. Views: 3 views. COMPARISON: [place] [id number] 08/25/2022 2:23 PM FINDINGS: Bones/joints: [id number] degenerative change or osteoarthritis of the right knee, particularly medial femoral and patellofemoral compartments. Bony demineralization. No fracture or dislocation is seen. Soft tissues: Soft tissue fullness in the suprapatellar region suggesting effusion. Vascular calcification is seen within the soft tissues, as well. Chronic appearing soft tissue calcification or ossification posterolaterally at the distal femur level. XR/XR knee RT 3V* [id number] IMPRESSION: Degenerative changes and bony demineralization.. No fracture or acute osseous abnormality.
--- NOTE | 2022-09-22 16:17 | XRR_ITS ---
PROCEDURE INFORMATION: Exam: XR Right Ankle Exam date and time: 09/22/2022 4:22 PM Age: 77 years old Clinical indication: Injury or trauma; Fall; Blunt trauma; Ankle; Right; Additional info: Pain after fall TECHNIQUE: Imaging protocol: Radiologic exam of the right ankle. Views: 3 or more views. COMPARISON: CR (LOW EXM, ) 09/21/2022 7:34 PM FINDINGS: Bones/joints: An oblique fracture seen about the distal right fibula or lateral malleolus, best demonstrated on the lateral view. There is no significant displacement or angulation. No other fracture seen. Ankle joint appears maintained or intact. Calcaneal spur or enthesophyte formation noted. Soft tissues: Mild soft tissue swelling. Small-vessel arterial calcification. XR/XR ankle RT min 3V* [id number] IMPRESSION: Nondisplaced oblique fracture within the distal right fibula or lateral malleolus that is only readily identified on the lateral view.
--- NOTE | 2022-09-22 16:19 | P.OP_ITS ---
Operative Report Date of procedure: September 22, 2022 Post-op diagnosis: Right intertrochanteric hip fracture with subtrochanteric extension Post-op findings: Complex right intertrochanteric hip fracture with subtrochanteric extension and significant displacement. Surgical procedure complicated by patient's body habitus. Procedure done: Open reduction internal fixation right intertrochanteric hip fracture with open reduction of subtrochanteric femur fracture Implants: Latha gamma 3 trochanteric nail size 11 mm x 180 mm x 130 degrees with a 10.5 mm x 95 mm lag screw and a distal 5 mm x 35 mm distal locking screw Specimens removed/disposition: None Pathology: none sent Surgeon: Lesa Donnelly Hvac R Tech: [facility] [facility] Anesthesia: General (Per LMA, ASA 3) Estimated blood loss (mL): 300 IV fluids (mL): 1,000 Urine output (mL): 800 Complications: None Findings: Very difficult surgical positioning secondary to the patient's core obesity. Additionally, significant displacement and comminution of the subtrochanteric fragment of the fracture. This required open manipulation of the fracture fragments. Unable to place cabling secondary to the size of the patient. Condition: stable Disposition: PACU (Then to floor for postoperative rehabilitation and pain management.) Brief History: Thelma Rm is a 77 year old female who fell on her back steps.? She was unable to get up, and she sat there for several hours.? The patient was brought to the hospital emergency department where she was found to have a right intertrochanteric hip fracture.? Upon further evaluation, there is also subtrochanteric extension. She also had other medical issues which were ev aluated by the medical service.? Recently, approximately 1 month ago, she also was diagnosed with COVID. She has been optimized for surgery at this time. Procedure: Patient is brought to the operating theater. After undergoing adequate general anesthesia, per LMA, the patient was transferred to the fracture table, positioned on the table and fluoroscopic guidance obtained throughout the surgical procedure. Positioning on the fracture table was very difficult as the patient had significant core obesity. The size of her thighs along with the shortness of her thighs made positioning on the table very problematic. Also, the subtrochanteric portion of the fracture required significant traction per the fracture table. Eventually, we were able to safely position the patient on the table and still obtain fluoroscopic guidance throughout the procedure. Prior to the commencement of the surgical procedure, a surgical pause was performed. At the time of the surgical pause, we confirmed the site and side of surgery as well as preoperative surgical markings and appropriate and timely administration of IV antibiotics, Ancef 2 gm. Availability of equipment was also confirmed. Fluoroscopy was used to confirm the fracture was appropriately reduced in both AP and lateral planes, but there was significant displacement of the subtrochanteric fracture which required open reduction. Internal fixation was unable to be placed at the conclusion of the case secondary to the patient's habitus with 4 inches of subcutaneous fat prior to accessing the femur. It was not felt to be safe to place cerclage wiring under the circumstances. An incision was then made significantly above the greater trochanter to allow access to the greater trochanter. The incision was noted to be quite large as 4 inches of subcutaneous tissue post access problems with the instrumentation for the gamma nail. The incision had to be extended significantly both proximally to allow for placement of instrumentation and distally to allow us to openly reduce the subtrochanteric fracture associated with the intertrochanteric fracture. This had to be manually held during the procedure, and it was not possible to place cerclage wires safely under the circumstances of this fracture. An awl was used to enter the greater trochanter, and a guidewire was subsequently placed. Once the guidewire was confirmed to be in appropriate position in AP and lateral planes, reaming was accomplished over this to allow for the proximal diameter of the nail.? Guidewire remained in place while an 11 mm nail was placed into appropriate position with positioning being confirmed in AP and lateral planes on the x-ray. It was noted to be tight in the femoral can al, but was able to be passed to an appropriate position. This guidewire was then removed and subsequently the guidewire was then passed through the jigging system into the femoral head. We wanted to be center or slightly inferior and posterior to center. Guidewire was placed into appropriate position. Once the guidewire was in appropriate position and this position was confirmed by x-ray.? Manual traction was held on the subtrochanteric fracture through this procedure to maintain appropriate position of the femoral head and neck. This was then measured and we chose a 10.5 mm by 95 mm lag screw.? We reamed to allow for the lag screw to be placed. The 955 mm lag screw was then passed into the femoral head through the trochanteric nail. This was passed uneventfully and again position was confirmed in AP and lateral planes. Compression was obtained under fluoroscopic guidance.? The set screw was then placed in position and tightened completely. Secondary to the patient's subtrochanteric component and inability to cerclage wire this area, the setscrew was left completely tightened. The construct was left in position and attention was directed distally. Cannulas were again used to determine appropriate placement for the distal screw. This was placed in position without difficulty. It was measured off of the drill. The appropriate length screw was then obtained and placed in position without difficulty. Once the screw was in position, we confirmed appropriate placement of the components, and we removed the jigging system. Attention was then directed to closure. The hip was copiously irrigated with normal saline with antibiotics. Following this it was dried and closed. Deep tissues were closed with multiple layers of 0 Vicryl. More superficial subcutaneous tissues were closed with 2-0 Monocryl, and the skin was closed with skin tata. The incision was then covered with an OpSite. The patient was removed from the fracture table and returned to recovery in satisfactory condition. The patient will be discharged to the floor for postoperative rehabilitation and pain management. There were no specimens obtained. Preoperatively, the patient had complained of right ankle and right knee pain. Imaging was obtained in the recovery room. The left ankle demonstrated a nondisplaced lateral malleolar fracture. A boot was ordered and she was placed in this prior to being return to the floor. Related Problem List Diagnoses (1) Closed intertrochanteric fracture of right femur: (2) Subtrochanteric fracture of right femur: (3) Obesity (BMI 30-39.9):
[2022-09-22 17:14] LABS: Glucose Point of Care 339 mg/dL (70-110)
--- NOTE | 2022-09-22 17:17 | PM.MISC ---
Miscellaneous Note Purpose of Documentation: Overnight labs and H&P reviewed. Patient is planned for surgical fixation of her fracture today with Dr. Foster. Anticipate procedure later today. No acute interim events since last seen by hospitalist overnight.
[2022-09-22] MEDS: insulin lispro 100 unit/1 mL SUBCUT ×2 (17:27→21:49)
--- NOTE | 2022-09-22 17:40 | PM.MISC ---
Miscellaneous Note Purpose of Documentation: Additional fracture diagnosis Note: The patient planed of ankle and knee pain preoperative femur is and is which were reviewed, but if she had discomfort, imaging was obtained following the surgical procedure to include knee specific images and ankle specific images. These were reviewed and indeed the patient has a minimally displaced lateral malleolar fracture of the right ankle. This will change her weightbearing status to touchdown only. She was placed in a cam walker in the recovery room.
[2022-09-22 20:17] LABS: Glucose Point of Care 310 mg/dL (70-110)
[2022-09-22] MEDS: acetaminophen 500 mg Tablet 1000 MG PO (21:48)
[2022-09-22] MEDS: metoprolol succinate ER (24 HR) 100 mg Tablet 200 MG PO (21:50)
[2022-09-22] MEDS: CELEcoxib 200 mg Capsule PO (21:51)
[2022-09-23] VITALS (9 sets, daily range): BP systolic 86–108; BP diastolic 56–64; PULSE 64–83; RESP 16–18; TEMP 36.4–37; O2SAT 94–99
[2022-09-23] MEDS: cefTRIAXone 1,000 MG in sodium chloride 0.9% (plus) 50 ML 100 MG IV (01:50)
[2022-09-23] MEDS: azithromycin 500 MG in sodium chloride 0.9% 250 ML 250 MG IV (02:40)
[2022-09-23 04:39] LABS: Basophils % 0.1 %; Hematocrit 28.4 % (37.0-47.0); Hemoglobin 8.7 g/dL (11.5-15.3); Lymphocytes # 1.5 10^3/uL (0.8-4.8); Lymphocytes % 14.3 %; Mean Corpuscular HGB Conc 30.6 g/dL (30.0-36.0); Mean Corpuscular Hemoglobin 29.2 pg (28.0-34.0); Mean Corpuscular Volume 95.3 fl (81-99); Mean Platelet Volume 9.7 fL (7.4-10.4); Monocytes # 1.5 10^3/uL (0.2-0.9); Monocytes % 14.3 %; Neutrophils # 7.44 10^3/uL (1.8-7.7); Nucleated Red Blood Cells % 0 %; Platelet Count 156 10^3/cmm (130-400); Red Blood Count 2.98 10^6/uL (4.1-5.3); Red Cell Distribution Width 15.1 % (12.1-15.1); White Blood Count 10.5 10^3/uL (4.0-10.0)
[2022-09-23 04:56] LABS: Anion Gap 13.3 (5-19); Blood Urea Nitrogen 18 mg/dL (8-23); Calcium 7.5 mg/dL (8.5-10.5); Carbon Dioxide 23 mmol/L (22-29); Chloride 105 mmol/L (98-107); Glucose 200 mg/dL (65-115); Osmolality Calculated 290 mOsm/kg (285-295); Potassium 5.3 mmol/L (3.5-5.1); Sodium 136 mmol/L (136-145)
[2022-09-23] MEDS: ceFAZolin 2,000 MG in sodium chloride 0.9% (plus) 50 ML 100 MG IV ×2 (05:36→13:09)
[2022-09-23] MEDS: acetaminophen 500 mg Tablet 1000 MG PO ×2 (05:36→21:31)
[2022-09-23 06:31] LABS: Glucose Point of Care 222 mg/dL (70-110)
[2022-09-23] MEDS: oxybutynin chloride XL 5 MG TABLET 10 MG PO (08:34)
[2022-09-23] MEDS: CELEcoxib 200 mg Capsule PO ×2 (08:36→21:32)
[2022-09-23] MEDS: atorvastatin 40 mg Tablet 20 MG PO (08:36)
[2022-09-23] MEDS: levothyroxine 88 mcg Tablet PO (08:36)
[2022-09-23] MEDS: cloNIDine 0.1 mg Tablet 0.3 MG PO (08:36)
[2022-09-23] MEDS: insulin lispro 100 unit/1 mL SUBCUT ×4 (08:37→21:32)
[2022-09-23] MEDS: acetaminophen 325 mg Tablet 650 MG PO (08:38)
[2022-09-23 13:55] LABS: Glucose Point of Care 222 mg/dL (70-110)
[2022-09-23 17:11] LABS: Glucose Point of Care 301 mg/dL (70-110)
--- NOTE | 2022-09-23 18:42 | PM.PN ---
Subjective Subjective: no new complaints today, states that her pain is controlled. she was discovered to have additional fracture for which her ankle is currently in a boot. Medications: Reviewed: Yes Medication Review Details: Generic Name Dose Route Start Last Admin Trade Name Alex PRN Reason Stop Dose Admin Acetaminophen 650 mg 09/22/22 01:46 09/23/22 08:38 Acetaminophen 32 5 Mg Tablet PO 650 mg Q6H PRN Administration Mild/Mod Pain Or Temp >/= 101 Acetaminophen 1,000 mg 09/22/22 20:00 09/24/22 11:40 Acetaminophen 50 0 Mg Tablet PO 1,000 mg Q8H GENNA Administration Atorvastatin Calci um 20 mg 09/22/22 09:00 09/24/22 07:53 Atorvastatin 40 Mg Tablet PO 20 mg DAILY GENNA Administration Celecoxib 200 mg 09/22/22 22:00 09/24/22 07:52 Celecoxib 200 Mg Capsule PO 200 mg Q12H GENNA Administration Clonidine HCl 0.3 mg 09/22/22 09:00 09/24/22 17:44 Clonidine 0.1 Mg Tablet PO Not Given BID GENNA Ceftriaxone Sodium 1,000 mg/ 50 mls @ 100 mls/ hr 09/22/22 02:00 09/24/22 01:54 Sodium Chloride IV Infused Q24H GENNA Infusion Protocol Azithromycin 500 m g/ Sodium 250 mls @ 250 mls /hr 09/22/22 02:00 09/24/22 02:49 Chloride IV Infused Q24H GENNA Infusion Protocol Insulin Human Lisp ro 0 unit 09/22/22 08:00 09/24/22 17:45 Insulin Lispro 1 00 Unit/1 Ml SUBCUT 8 unit WM&BEDTIME GENNA Administration Protocol Latanoprost 1 drop 09/22/22 21:00 09/23/22 21:32 Latanoprost 0.00 5% Op Soln 2.5 Ml Btl EYE-BOTH 1 drop BEDTIME GENNA Administration Levothyroxine Sodi um 88 mcg 09/22/22 09:00 09/24/22 07:51 Levothyroxine 88 Mcg Tablet PO 88 mcg DAILY GENNA Administration Metoprolol Succina te 200 mg 09/22/22 21:00 09/23/22 21:32 Metoprolol Succi efrain Er (24 Hr) 10 0 Mg Tablet PO Not Given BEDTIME GENNA Oxybutynin Chlorid e 10 mg 09/22/22 09:00 09/24/22 07:52 Oxybutynin Chlor pam Xl 5 Mg Tablet PO 10 mg DAILY GENNA Administration Vitals/I&O/Wt Last Vital Signs Temp 98.0 F 09/23/22 15:54 Pulse 73 09/23/22 15:54 Resp 16 09/23/22 15:54 BP 96/60 09/23/22 18:19 Pulse Ox 94 09/23/22 15:54 O2 Del Method 09/23/22 15:54 O2 Flow Rate 2 09/23/22 08:00 09/23/22 09/23/22 09/23/22 06:59 14:59 22:59 Intake Total 350 / 996 770 / 770 240 / 1010 Output Total 450 / 2550 Balance -100 / -1554 770 / 770 240 / 1010 Weight last 48 hrs Weight 95.254 kg Weight 95.254 kg Physical Exam Narrative: General: No acute distress, AO x3 HEENT: PERRLA, pupils bilaterally equal and reactive, pallors not present Chest: Normal vesicular breath sounds, no added sounds, equal good air entry bilaterally CVS: S1-S2 regular, no murmurs, no tachycardia, no gallops, no rubs Abdomen: Soft, nontender, no organomegaly, bowel sounds present Neuro: No focal deficits, no facial deformity, AO x3, power 5/5 in all limbs Extremities: right leg in boot at ankle Urinary Catheter Management: Rolon: Cath Placed During This Visit: yes Reason for Continuing Indwelling Catheter: Required Immobilization for Trauma or Surgery or Anesthesia Urinary Catheter Date of Insertion: 09/21/22 Urinary Catheter Time of Insertion: 20:15 Data 09/23/22 04:11 09/23/22 04:11 A&P Assessment and plan (1) Closed intertrochanteric fracture of right femur: Mechanical fall, slipped on back steps. closed inter trochanteric fracture on imaging s/p surgical intervention Discovered by ortho to have an additional ankle fracture. Currently in a boot NH recommended given TTWB right and unable to sufficiently help maintain a WTB status. awaiting disposition planning (2) Hypoxia: Noted to be hypoxic in ER at rest down to 80% saturation. CT with patchy atelectasis and/or infiltrate, small effusions, cannot entirely exclude pneumonia, although suspicion is lower. receiving abx She is recovering from COVID from back in August. Consider home O2 evaluation prior to discharge. She has follow-up scheduled with pulmonology sounds like for lung nodules. (3) Hypertension: Plan DM2: SSI. Accu-Cheks requested. HLD Hypothyroidism History of cutaneous lymphoma History of breast cancer Attestations Medical Necessity Statement*: approprtiate disposition planning, will benefit from ongoing inpatient therapy Coding Level of Care Code Acute Code for [facility] Diagnoses Closed intertrochanteric fracture of right femur S72.141A Hypoxia R09.02 Hypertension I10
[2022-09-23 21:02] LABS: Glucose Point of Care 296 mg/dL (70-110)
--- NOTE | 2022-09-23 21:21 | ECG_ITS ---
[facility] Test Date: 2022-09-23 Pat Name: Thelma Rm Department: Room: 275 Gender: Female Paster Operator: : 1945 Requested By: Kristie Portillo Order Number: [id number] Juliano MD: Satinder Mistry M.D. Measurements Intervals [place] Rate: 77 P: 81 SC: 158 QRS: 58 QRSD: 90 T: 53 QT: 372 QTc: 422 Interpretive Statements SINUS RHYTHM MODERATE VOLTAGE CRITERIA FOR LVH, CONSIDER NORMAL VARIANT [MEETS CRITERIA IN ONE OF: R(aVL), S(V1), R(V5), R(V5/V6)+S(V1)] Compared to ECG 09/22/2022 03:36:57 No significant changes Electronically Signed On 09-24-2022 11:32:37 CDT by Satinder Mistry M.D. [id number]
[2022-09-23] MEDS: latanoprost 0.005% Op Soln 2.5 mL Btl 1 DROP EYE-BOTH (21:32)
[2022-09-23] MEDS: metoprolol succinate ER (24 HR) 25 mg Tablet PO (21:32)
[2022-09-23 21:54] LABS: Basophils % 0.2 %; Eosinophils # 0.1 10^3/uL (0.0-0.8); Hematocrit 25.3 % (37.0-47.0); Hemoglobin 7.9 g/dL (11.5-15.3); Lymphocytes # 2.4 10^3/uL (0.8-4.8); Lymphocytes % 25.9 %; Mean Corpuscular HGB Conc 31.2 g/dL (30.0-36.0); Mean Corpuscular Hemoglobin 29.7 pg (28.0-34.0); Mean Corpuscular Volume 95.1 fl (81-99); Mean Platelet Volume 9.6 fL (7.4-10.4); Monocytes # 1.3 10^3/uL (0.2-0.9); Monocytes % 13.4 %; Neutrophils # 5.54 10^3/uL (1.8-7.7); Neutrophils % 59.3 %; Nucleated Red Blood Cells % 0 %; Platelet Count 129 10^3/cmm (130-400); Red Blood Count 2.66 10^6/uL (4.1-5.3); Red Cell Distribution Width 15.1 % (12.1-15.1); White Blood Count 9.3 10^3/uL (4.0-10.0)
[2022-09-23 22:10] LABS: Anion Gap 14.4 (5-19); Blood Urea Nitrogen 29 mg/dL (8-23); Calcium 7.8 mg/dL (8.5-10.5); Carbon Dioxide 25 mmol/L (22-29); Chloride 101 mmol/L (98-107); Glucose 251 mg/dL (65-115); Osmolality Calculated 296 mOsm/kg (285-295); Potassium 4.4 mmol/L (3.5-5.1); Sodium 136 mmol/L (136-145)
[2022-09-24] VITALS (9 sets, daily range): BP systolic 116–153; BP diastolic 61–66; PULSE 76–93; RESP 14–18; TEMP 36.9–37.2; O2SAT 94–99
[2022-09-24] MEDS: cefTRIAXone 1,000 MG in sodium chloride 0.9% (plus) 50 ML 100 MG IV (01:20)
[2022-09-24] MEDS: azithromycin 500 MG in sodium chloride 0.9% 250 ML 250 MG IV (01:39)
[2022-09-24 04:45] LABS: Basophils % 0.5 %; Eosinophils # 0.2 10^3/uL (0.0-0.8); Eosinophils % 2.5 %; Hematocrit 25.5 % (37.0-47.0); Hemoglobin 7.8 g/dL (11.5-15.3); Lymphocytes % 22.2 %; Mean Corpuscular HGB Conc 30.6 g/dL (30.0-36.0); Mean Corpuscular Hemoglobin 29.4 pg (28.0-34.0); Mean Corpuscular Volume 96.2 fl (81-99); Monocytes # 1.1 10^3/uL (0.2-0.9); Monocytes % 12.9 %; Neutrophils # 5.45 10^3/uL (1.8-7.7); Neutrophils % 61.4 %; Nucleated Red Blood Cells % 0 %; Platelet Count 144 10^3/cmm (130-400); Red Blood Count 2.65 10^6/uL (4.1-5.3); Red Cell Distribution Width 15.1 % (12.1-15.1); White Blood Count 8.9 10^3/uL (4.0-10.0)
[2022-09-24 05:09] LABS: Anion Gap 11.5 (5-19); Blood Urea Nitrogen 26 mg/dL (8-23); Calcium 7.9 mg/dL (8.5-10.5); Carbon Dioxide 25 mmol/L (22-29); Chloride 106 mmol/L (98-107); Glucose 206 mg/dL (65-115); Osmolality Calculated 297 mOsm/kg (285-295); Potassium 4.5 mmol/L (3.5-5.1); Sodium 138 mmol/L (136-145)
[2022-09-24] MEDS: acetaminophen 500 mg Tablet 1000 MG PO ×3 (05:15→20:48)
[2022-09-24 06:49] LABS: Glucose Point of Care 299 mg/dL (70-110)
[2022-09-24] MEDS: insulin lispro 100 unit/1 mL SUBCUT ×4 (07:51→20:54)
[2022-09-24] MEDS: levothyroxine 88 mcg Tablet PO (07:51)
[2022-09-24] MEDS: cloNIDine 0.1 mg Tablet 0.3 MG PO (07:52)
[2022-09-24] MEDS: CELEcoxib 200 mg Capsule PO ×2 (07:52→20:49)
[2022-09-24] MEDS: oxybutynin chloride XL 5 MG TABLET 10 MG PO (07:52)
[2022-09-24] MEDS: atorvastatin 40 mg Tablet 20 MG PO (07:53)
[2022-09-24 11:15] LABS: Glucose Point of Care 286 mg/dL (70-110)
--- NOTE | 2022-09-24 13:13 | PM.PN ---
Subjective Subjective: Patient is seen in her room today with family. She is up in a chair awaiting her lunch. She appears comfortable. She does state the nurses had some concerns regarding her incision area. Medications: Reviewed: Yes Vitals/I&O/Wt Last Vital Signs Temp 98.4 F 09/24/22 12:06 Pulse 90 09/24/22 12:06 Resp 14 09/24/22 12:06 BP 117/63 09/24/22 12:06 Pulse Ox 96 09/24/22 12:06 O2 Del Method 09/24/22 12:06 O2 Flow Rate 2 09/24/22 08:06 09/23/22 09/24/22 09/24/22 22:59 06:59 14:59 Intake Total 360 / 1130 420 / 1550 360 / 360 Output Total 850 / 850 Balance 360 / 1130 -430 / 700 360 / 360 Physical Exam Const: COMMON NORMALS: no acute distress, patient oriented x3 and alert GENERAL APPEARANCE: cooperative and comfortable NUTRITIONAL APPEARANCE: obese ORIENTATION/CONSCIOUSNESS: Yes awake HENMT: COMMON NORMALS: normocephalic and atraumatic HEAD & SCALP: normocephalic and atraumatic Eye: GENERAL EYE: appearance normal, both eyes and all related structures Chest: COMMONS NORMALS: normal inspection of the chest Resp: COMMON NORMALS: normal respiratory effort EFFORT & INSPECTION: Yes able to speak in complete sentences and Yes symmetric chest movement Extremity: RIGHT LOWER EXTREMITY: Yes hip joint Right hip: Yes inspection (Dressing remains dry and intact. ), Yes palpation (Minimal tenderness.), Yes ROM (Not evaluated.), Yes neurovascular exam (Intact distally.) and Yes other (Some reddish discoloration consistent with postoperative status.), Yes knee joint (Patient notes pain in the knee as well) and Yes foot & digits (The ankle is in a cam walker to treat her fracture.) Neuro: COMMON NORMALS: patient oriented x3 SENSORIUM/ORIENTATION: Yes alert Psych: COMMON NORMALS: mental status grossly normal APPEARANCE: Yes grossly normal ATTITUDE: Yes calm and Yes engaged ATTENTION/CONCENTRATION: Yes attention grossly intact Skin: COMMON NORMALS: no rashes or lesions noted GENERAL SKIN EXAM: no rashes or lesions noted Urinary Catheter Management: Rolon: Cath Placed During This Visit: yes Reason for Continuing Indwelling Catheter: Required Immobilization for Trauma or Surgery or Anesthesia Urinary Catheter Date of Insertion: 09/21/22 Urinary Catheter Time of Insertion: 20:15 Data 09/24/22 04:07 09/24/22 04:07 A&P Assessment and plan (1) Closed intertrochanteric fracture of right femur: This 77-year-old woman was in her usual state of health when she fell at home suffering a right intratrochanteric hip fracture with proximal femoral shaft and subtrochanteric involvement. Patient underwent open reduction internal fixation of this fracture. Operatively, she commented that she had pain in her knee and also at her ankle and was concerned. Imaging studies therefore were obtained, and she was found to have a lateral malleolar fracture with minimal displacement. She is in a cam walker as treatment for this. Secondary to these multiple injuries, she is touchdown weightbearing only on her right lower extremity. (2) Subtrochanteric fracture of right femur: (3) Obesity (BMI 30-39.9): Attestations Medical Necessity Statement*: Ongoing care for right hip fracture which extends into the femur and right ankle fracture. Coding Level of Care Code Acute Code for [facility] Fwd Diagnoses Closed intertrochanteric fracture of right femur S72.141A Subtrochanteric fracture of right femur S72.21XA Obesity (BMI 30-39.9) E66.9
[2022-09-24 17:18] LABS: Glucose Point of Care 295 mg/dL (70-110)
--- NOTE | 2022-09-24 19:31 | P.PN_ITS ---
Subjective Subjective: Patient was seen and examined this morning no acute events overnight, pain is better controlled. Medications: Reviewed: Yes Medication Review Details: Generic Name Dose Route Start Last Admin Trade Name Alex PRN Reason Stop Dose Admin Acetaminophen 650 mg 09/22/22 01:46 09/23/22 08:38 Acetaminophen 32 5 Mg Tablet PO 650 mg Q6H PRN Administration Mild/Mod Pain Or Temp >/= 101 Acetaminophen 1,000 mg 09/22/22 20:00 09/24/22 11:40 Acetaminophen 50 0 Mg Tablet PO 1,000 mg Q8H GENNA Administration Atorvastatin Calci um 20 mg 09/22/22 09:00 09/24/22 07:53 Atorvastatin 40 Mg Tablet PO 20 mg DAILY GENNA Administration Celecoxib 200 mg 09/22/22 22:00 09/24/22 07:52 Celecoxib 200 Mg Capsule PO 200 mg Q12H GENNA Administration Clonidine HCl 0.3 mg 09/22/22 09:00 09/24/22 17:44 Clonidine 0.1 Mg Tablet PO Not Given BID GENNA Ceftriaxone Sodium 1,000 mg/ 50 mls @ 100 mls/ hr 09/22/22 02:00 09/24/22 01:54 Sodium Chloride IV Infused Q24H GENNA Infusion Protocol Azithromycin 500 m g/ Sodium 250 mls @ 250 mls /hr 09/22/22 02:00 09/24/22 02:49 Chloride IV Infused Q24H GENNA Infusion Protocol Insulin Human Lisp ro 0 unit 09/22/22 08:00 09/24/22 17:45 Insulin Lispro 1 00 Unit/1 Ml SUBCUT 8 unit WM&BEDTIME GENNA Administration Protocol Latanoprost 1 drop 09/22/22 21:00 09/23/22 21:32 Latanoprost 0.00 5% Op Soln 2.5 Ml Btl EYE-BOTH 1 drop BEDTIME GENNA Administration Levothyroxine Sodi um 88 mcg 09/22/22 09:00 09/24/22 07:51 Levothyroxine 88 Mcg Tablet PO 88 mcg DAILY GENNA Administration Metoprolol Succina te 200 mg 09/22/22 21:00 09/23/22 21:32 Metoprolol Succi efrain Er (24 Hr) 10 0 Mg Tablet PO Not Given BEDTIME GENNA Oxybutynin Chlorid e 10 mg 09/22/22 09:00 09/24/22 07:52 Oxybutynin Chlor pam Xl 5 Mg Tablet PO 10 mg DAILY GENNA Administration Vitals/I&O/Wt Last Vital Signs Temp 98.9 F 09/24/22 16:12 Pulse 93 09/24/22 16:12 Resp 18 09/24/22 16:12 BP 134/66 09/24/22 16:12 Pulse Ox 96 09/24/22 16:12 O2 Del Method 09/24/22 16:12 O2 Flow Rate 2 09/24/22 08:06 09/24/22 09/24/22 09/24/22 06:59 14:59 22:59 Intake Total 420 / 1550 600 / 600 240 / 840 Output Total 850 / 850 650 / 650 Balance -430 / 700 600 / 600 -410 / 190 Physical Exam Const: COMMON NORMALS: patient oriented x3 HENMT: COMMON NORMALS: normocephalic and atraumatic HEAD & SCALP: normocephalic and atraumatic Resp: COMMON NORMALS: normal respiratory effort, No retractions, No use of accessory muscles and clear to auscultation bilaterally EFFORT & INSPECTION: Yes symmetric chest movement AUSCULTATION: clear to auscultation bilaterally Cardio: COMMON NORMALS: regular rate, regular rhythm, S1 normal heart sound present, S2 normal heart sound present, No gallops present (Cardio), No murmurs present (Cardio), No rub (Cardio) and Peripheral pulses 2+ throughout RATE: regular rate RHYTHM: regular rhythm HEART SOUNDS: S1 normal heart sound present and S2 normal heart sound present PERIPHERAL PULSES: Peripheral pulses 2+ throughout GI: COMMON NORMALS: Normal to inspection, nondistended, normoactive bowel sounds present, Soft to palpation, non-tender, No hepatosplenomegaly present and no masses AUSCULTATION: Yes normoactive bowel sounds PALPATION: Yes Soft to palpation and Yes No hepatosplenomegaly present RECTAL EXAM: deferred Extremity: COMMON NORMALS: no clubbing, cyanosis or edema and no pedal edema Neuro: COMMON NORMALS: patient oriented x3 Urinary Catheter Management: Rolon: Cath Placed During This Visit: yes, but has since been removed by the nurse Reason for Continuing Indwelling Catheter: Decision to DC Catheter Urinary Catheter Date of Insertion: 09/21/22 Urinary Catheter Time of Insertion: 20:15 Date Urinary Catheter Removed: 09/24/22 Time Urinary Catheter Discontinued: 15:11 Data 09/24/22 04:07 09/24/22 04:07 A&P Assessment and plan (1) Closed intertrochanteric fracture of right femur: Mechanical fall, slipped on back steps. Otherwise apart from recovering from COVID back in August denies any other acute illness or worsening of chronic illness. Noted hypoxic in ER as below. Denies chronic lung illness, no cardiac issues. Obesity, but denies sleep apnea. States has not been limited in ambulation, but has not left home since COVID. We will obtain baseline EKG. With hypoxia, Kasai ptosis, we will empirically give antibiotics for now for possibility of pneumonia, although acute pneumonia is probably less likely. Otherwise not much else worth investigating or optimizing that would be worth delaying surgical repair of her hip. NPO. Orthopedics for evaluation. 1 dose of heparin for now in anticipation of likely surgical intervention. SCD. Case management consultation. (2) Hypoxia: Noted to be hypoxic in ER at rest down to 80% saturation. He is noted to have some leukocytosis, does not have respiratory symptoms of ongoing infection. CT scan reviewed, noted areas of patchy atelectasis and/or infiltrate, small effusions, cannot entirely exclude pneumonia, although suspicion is lower. For now empirically start ceftriaxone and azithromycin, will request repeat CBC, p lease follow-up symptoms, will also request procalcitonin. If no further symptoms, leukocytosis improving, afebrile, procalcitonin with elevation, consider de-escalation/continuation of antibiotic. She is recovering from COVID from back in August. Consider home O2 evaluation prior to discharge. She has follow-up scheduled with pulmonology sounds like for lung nodules. (3) Hypertension: Would benefit from optimization. Continue metoprolol, lisinopril, clonidine, a mlodipine. Has not had any of her evening meds yet. Continue follow-up of blood pressures. Resume metoprolol. Clonidine. Hold lisinopril for now to avoid perioperative hypotension. Plan Alk phos elevation: Possibly secondary to acute fracture. Previously normal. Requesting follow-up CMP. Follow-up with PCP for resolution. Lung nodules: Follow-up with pulmonology. Consider reimaging in 3-6 months. 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 Acute abdominal findings on CT with recommendation for 1 year follow-up. DM2: SSI. Accu-Cheks requested. HLD Hypothyroidism History of cutaneous lymphoma History of breast cancer Discussed with ER physician. Documentation reviewed. Attestations Medical Necessity Statement*: Patient is currently awaiting placement Coding Level of Care Code Acute Code for [facility] Fwd Diagnoses Closed intertrochanteric fracture of right femur S72.141A Hypoxia R09.02 Hypertension I10
[2022-09-24 20:31] LABS: Glucose Point of Care 289 mg/dL (70-110)
[2022-09-24] MEDS: latanoprost 0.005% Op Soln 2.5 mL Btl 1 DROP EYE-BOTH (20:47)
[2022-09-24] MEDS: metoprolol succinate ER (24 HR) 100 mg Tablet 200 MG PO (20:49)
[2022-09-25] MEDS: cefTRIAXone 1,000 MG in sodium chloride 0.9% (plus) 50 ML 100 MG IV (02:09)
[2022-09-25] MEDS: azithromycin 500 MG in sodium chloride 0.9% 250 ML 250 MG IV (03:06)
[2022-09-25] MEDS: acetaminophen 500 mg Tablet 1000 MG PO ×2 (03:07→11:08)
[2022-09-25 04:00] VITALS: BP 155/72; PULSE 84; RESP 17; TEMP 36.4; O2SAT 97
[2022-09-25 05:20] LABS: Basophils # 0.1 10^3/uL (0.0-0.1); Basophils % 0.4 %; Eosinophils # 0.2 10^3/uL (0.0-0.8); Eosinophils % 1.9 %; Hematocrit 27.4 % (37.0-47.0); Hemoglobin 8.6 g/dL (11.5-15.3); Lymphocytes # 2.4 10^3/uL (0.8-4.8); Lymphocytes % 19.4 %; Mean Corpuscular HGB Conc 31.4 g/dL (30.0-36.0); Mean Corpuscular Hemoglobin 30.3 pg (28.0-34.0); Mean Corpuscular Volume 96.5 fl (81-99); Mean Platelet Volume 10.4 fL (7.4-10.4); Monocytes # 1.3 10^3/uL (0.2-0.9); Monocytes % 10.4 %; Neutrophils # 8.11 10^3/uL (1.8-7.7); Nucleated Red Blood Cells % 0.3 %; Platelet Count 168 10^3/cmm (130-400); Red Blood Count 2.84 10^6/uL (4.1-5.3); Red Cell Distribution Width 15.1 % (12.1-15.1); White Blood Count 12.1 10^3/uL (4.0-10.0)
[2022-09-25 05:42] LABS: Blood Urea Nitrogen 15 mg/dL (8-23); Calcium 8.3 mg/dL (8.5-10.5); Carbon Dioxide 22 mmol/L (22-29); Chloride 105 mmol/L (98-107); Glucose 262 mg/dL (65-115); Osmolality Calculated 296 mOsm/kg (285-295); Sodium 138 mmol/L (136-145)
[2022-09-25 05:43] LABS: Anion Gap 16.1 (5-19); Potassium 5.1 mmol/L (3.5-5.1)
[2022-09-25 06:31] LABS: Glucose Point of Care 293 mg/dL (70-110)
[2022-09-25 07:58] VITALS: PULSE 88; RESP 18; O2SAT 94
[2022-09-25 08:00] VITALS: BP 169/71; PULSE 87; RESP 17; TEMP 37.2; O2SAT 95
[2022-09-25] MEDS: atorvastatin 40 mg Tablet 20 MG PO (08:20)
[2022-09-25] MEDS: levothyroxine 88 mcg Tablet PO (08:20)
[2022-09-25] MEDS: oxybutynin chloride XL 5 MG TABLET 10 MG PO (08:20)
[2022-09-25] MEDS: cloNIDine 0.1 mg Tablet 0.3 MG PO (08:20)
[2022-09-25] MEDS: insulin lispro 100 unit/1 mL SUBCUT ×2 (08:21→12:28)
[2022-09-25] MEDS: CELEcoxib 200 mg Capsule PO (11:08)
[2022-09-25 11:37] LABS: Glucose Point of Care 373 mg/dL (70-110)
--- NOTE | 2022-09-25 11:49 | P.DS_ITS ---
Discharge Providers Date of Admission: 09/22/22 00:14 Date of Discharge: September 25, 2022 Attending Provider at Admission: Gilmar Stovall Attending Provider at Discharge: Price Alejandro MD Primary Care Provider: Miguel Dale MD Diagnoses at Discharge Discharge Diagnosis (1) Closed intertrochanteric fracture of right femur: Status: Acute (2) Hypoxia: Status: Acute (3) Hypertension: Status: Acute Reason for Visit Reason for Visit: FALL WITH HIP DISLOCATION Hospital Course Hospital Course HPI:Gilmar Stovall Amy 77-year-old lady came into ER for evaluation after slipping on the back steps, falling down, was having pain in the right hip, could not get up, sat in mild for several hours, in ER finding of right intratrochanteric fracture.? In ER also noted with new oxygen requirement, saturation down to 82% just at rest.? Noted leukocytosis 14.1, although denies cough, sputum production, other respiratory symptoms or symptoms that may suggest upper or lower respiratory tract acute infection.? CT chest abdomen pelvis in ED without acute chest trauma, hazy area of diffuse bilateral atelectasis, edema or pneumonia and very small effusions present, improved from 1 month ago.? A few calcified and noncalcified lung nodules again seen, should be followed up in 3-6 months.? Other chronic findings. In the abdomen right intertrochanteric hip fracture, fecal filled colon, atherosclerosis, known splenic artery aneurysm.? Numerous other chronic findings which should be followed up in 1 year.? Hospital course: She was admitted for the management of Closed intertrochanteric fracture of right femur: S/p ORIF of right intertrochanteric hip fracture with open reduction of subtrochanteric femur fracture. During the hospital stay she was also managed for hypoxia: CT chest: Showed: Mild venous congestion with diffuse interstitial pulmonary edema.Moderate areas of patchy bilateral mid to lower lung atelectasis or airspace disease. A few minute calcified lung nodules are seen incidentally. A few scattered ill-defined nodular lung densities are again visualized. Compared to 1 month ago, the findings are mildly improved. Pleural spaces: Trace bilateral pleural effusions. No pneumothorax. Patient was empirically kept on antibiotics for possible pneumonia, at the time of discharge she was saturating well on room air, no antibiotics was continued on discharge. Patient was also continued to be managed for other comorbid conditions namely hypertension hypothyroidism diabetes dyslipidemia. Overall patient responded well to above medical management and was discharged in stable condition to SNF. She will follow orthopedic as outpatient. Physical Exam Const: COMMON NORMALS: patient oriented x3 HENMT: COMMON NORMALS: normocephalic and atraumatic HEAD & SCALP: normocephalic and atraumatic Resp: COMMON NORMALS: normal respiratory effort, No retractions, No use of accessory muscles and clear to auscultation bilaterally EFFORT & INSPECTION: Yes symmetric chest movement AUSCULTATION: clear to auscultation bilaterally Cardio: COMMON NORMALS: regular rate, regular rhythm, S1 normal heart sound present, S2 normal heart sound present, No gallops present (Cardio), No murmurs present (Cardio), No rub (Cardio) and Peripheral pulses 2+ throughout RATE: regular rate RHYTHM: regular rhythm HEART SOUNDS: S1 normal heart sound present and S2 normal heart sound present PERIPHERAL PULSES: Peripheral pulses 2+ throughout GI: COMMON NORMALS: Normal to inspection, nondistended, normoactive bowel sounds present, Soft to palpation, non-tender, No hepatosplenomegaly present and no masses AUSCULTATION: Yes normoactive bowel sounds PALPATION: Yes Soft to palpation and Yes No hepatosplenomegaly present RECTAL EXAM: deferred Extremity: COMMON NORMALS: no clubbing, cyanosis or edema and no pedal edema Neuro: COMMON NORMALS: patient oriented x3 Urinary Catheter Management: Rolon: Cath Placed During This Visit: yes, but has since been removed by the nurse Reason for Continuing Indwelling Catheter: Decision to DC Catheter Urinary Catheter Date of Insertion: 09/21/22 Urinary Catheter Time of Insertion: 20:15 Date Urinary Catheter Removed: 09/24/22 Time Urinary Catheter Discontinued: 15:11 Discharge Data Studies Completed and Pending Completed Studies During Hospitalization Category Date Time Status CT cervical spin wo con* [id number] Stat Cat Scan 09/21/22 20:[address] chest abdpel w/*[id number] Stat Cat Scan 09/21/22 20:[address] head wo con* [id number] Stat Cat Scan 09/21/22 20:26 Completed XR ankle RT min 3V* [id number] Routine Exams 09/22/22 16:17 Completed XR chest 1V portable [id number] Stat Exams 09/21/22 19:17 Completed XR femur RT min 2V* [id number] Stat Exams 09/21/22 19:12 Completed XR hip RT 2-3V wo/w pel* [id number] Routine Exams 09/22/22 14:00 Completed XR hip RT 2-3V wo/w pel* [id number] Stat Exams 09/21/22 19:12 Completed XR knee RT 3V* [id number] Routine Exams 09/22/22 16:16 Completed XR tibia fibula RT 2V [id number] Stat Exams 09/21/22 19:12 Completed Pending at discharge Category Date Time Status SARS Covid-2 Antigen Routine Lab 09/25/22 11:10 Received Radiology Impressions Femur X-Ray 09/21/22 19:12 IMPRESSION: No acute findings. Tibia/Fibula X-Ray 09/21/22 19:12 IMPRESSION: There is no evidence for acute fracture or malalignment. If there is desire for further evaluation, a CT scan could be performed. Chest X-Ray 09/21/22 19:17 IMPRESSION: No acute traumatic injury. Cervical Spine CT 09/21/22 20:26 IMPRESSION: There is no evidence for fracture or facet dislocation. Chest/Abdomen/Pelvis CT 09/21/22 20:26 IMPRESSION: 1. No acute chest trauma identified. 2. Hazy areas of diffuse bilateral atelectasis, edema or pneumonia and very small effusions are present. These findings have improved from 1 month ago. 3. A few calcified and noncalcified lung nodules are again seen, which should be followed up in 3-6 months. 4. Other chronic findings. IMPRESSION: 1. Right hip acute surgical fracture, intertrochanteric. 2. No other acute abdominal or pelvic trauma identified. 3. Fecal filled colon, atherosclerosis, and known splenic artery aneurysm. Numerous other chronic findings above. These should be followed up in 1 year. 4. See above chest CT report as well. Head CT 09/21/22 20:26 IMPRESSION: There are no acute concerning abnormalities. Hip/Pelvis X-Ray 09/22/22 14:00 IMPRESSION: 1. ORIF involving an intertrochanteric fracture of the right hip. Alignment is satisfactory for healing. Knee X-Ray 09/22/22 16:16 IMPRESSION: Degenerative changes and bony demineralization.. No fracture or acute osseous abnormality. Ankle X-Ray 09/22/22 16:17 IMPRESSION: Nondisplaced oblique fracture within the distal right fibula or lateral malleolus that is only readily identified on the lateral view. Laboratory Results WBC 12.1 10^3/uL (4.0-10.0) H 09/25/22 05:13 RBC 2.84 10^6/uL (4.1-5.3) L 09/25/22 05:13 Hgb 8.6 g/dL (11.5-15.3) L 09/25/22 05:13 Hct 27.4 % (37.0-47.0) L 09/25/22 05:13 MCV 96.5 fl (81-99) 09/25/22 05:13 MCH 30.3 pg (28.0-34.0) 09/25/22 05:13 MCHC 31.4 g/dL (30.0-36.0) 09/25/22 05:13 RDW 15.1 % (12.1-15.1) 09/25/22 05:13 Plt Count 168 10^3/cmm (130-400) 09/25/22 05:13 MPV 10.4 fL (7.4-10.4) 09/25/22 05:13 Neut % (Auto) 67.0 % 09/25/22 05:13 Lymph % (Auto) 19.4 % 09/25/22 05:13 Wayne % (Auto) 10.4 % 09/25/22 05:13 Eos % (Auto) 1.9 % 09/25/22 05:13 Baso % (Auto) 0.4 % 09/25/22 05:13 Neut # (Auto) 8.11 10^3/uL (1.8-7.7) H 09/25/22 05:13 Lymph # (Auto) 2.4 10^3/uL (0.8-4.8) 09/25/22 05:13 Wayne # (Auto) 1.3 10^3/uL (0.2-0.9) H 09/25/22 05:13 Eos # (Auto) 0.2 10^3/uL (0.0-0.8) 09/25/22 05:13 Baso # (Auto) 0.1 10^3/uL (0.0-0.1) 09/25/22 05:13 Nucleated RBC % (auto) 0.3 % 09/25/22 05:13 Nucleated RBCs # 0.0 /100WBC 09/25/22 05:13 PT 12.80 SECONDS (12.1-14.9) 09/21/22 20:07 INR 0.94 (0.8-1.2) 09/21/22 20:07 APTT 25.4 SECONDS (23.9-36.7) 09/21/22 20:07 Sodium 138 mmol/L (136-145) 09/25/22 05:13 Potassium 5.1 mmol/L (3.5-5.1) 09/25/22 05:13 Chloride 105 mmol/L (98-107) 09/25/22 05:13 Carbon Dioxide 22 mmol/L (22-29) 09/25/22 05:13 Anion Gap 16.1 (5-19) 09/25/22 05:13 BUN 15 mg/dL (8-23) 09/25/22 05:13 Creatinine 0.6 mg/dL (0.5-0.9) 09/25/22 05:13 GFR Calculation Not Reportable 09/25/22 05:13 Glucose 262 mg/dL (65-115) H 09/25/22 05:13 POC Glucose 373 mg/dL (70-110) H 09/25/22 11:24 Calculated Osmolality 296 mOsm/kg (285-295) H 09/25/22 05:13 Calcium 8.3 mg/dL (8.5-10.5) L 09/25/22 05:13 Total Bilirubin 0.4 mg/dL (0.15-1.2) 09/21/22 20:07 AST 27 U/L (0-32) 09/21/22 20:07 ALT 18 U/L (0-33) 09/21/22 20:07 Alkaline Phosphatase 128 U/L (35-105) H 09/21/22 20:07 Total Protein 7.8 g/dL (6.6-8.7) 09/21/22 20:07 Albumin 4.2 g/dL (3.5-5.2) 09/21/22 20:07 Globulin 3.6 g/dL (1.3-4.6) 09/21/22 20:07 Procalcitonin 0.03 ng/mL (0-0.5) 09/21/22 20:07 SARS-CoV-2 Ag (Rapid) negative (Negative) 09/21/22 22:48 Vitals Last Vital Signs Temp 98.9 F 09/25/22 08:00 Pulse 87 09/25/22 08:00 Resp 17 09/25/22 08:00 BP 169/71 09/25/22 08:00 Pulse Ox 95 09/25/22 08:00 O2 Del Method 09/25/22 07:58 O2 Flow Rate 2 09/24/22 20:00 Discharge Plan Discharge Patient Disposition: Xfer SNF Condition: Stable Prescriptions: New Acetaminophen Pain Relief 500 mg tablet 1,000 mg PO Q8H PRN (Reason: pain) Qty: 30 0RF celecoxib 200 mg Capsule 200 mg PO Q12H PRN (Reason: pain) 7 Days Qty: 14 0RF oxycodone 5 mg tablet 5 mg PO Q8H PRN (Reason: pain) 7 Days Qty: 10 0RF Continued latanoprost 0.005 % drops 1 drp ophthalmic (eye) BEDTIME oxybutynin chloride 10 mg tablet extended release 24hr 10 mg PO DAILY metoprolol succinate 200 mg tablet extended release 24 hr 200 mg PO BEDTIME glipizide 10 mg tablet 10 mg PO DAILY clonidine HCl 0.3 mg tablet 0.3 mg PO BID simvastatin 10 mg tablet 10 mg PO QPM pioglitazone 45 mg tablet 45 mg PO DAILY levothyroxine 88 mcg tablet 88 mcg PO DAILY amlodipine 10 mg tablet 10 mg PO DAILY lisinopril 40 mg tablet 40 mg PO BID metformin 500 mg tablet extended release 24 hr 1,000 mg PO BID Rybelsus 7 mg tablet 7 mg PO DAILY albuterol sulfate [ProAir HFA] 90 mcg/actuation HFA aerosol inhaler 1 inh inhalation Q6H PRN (Reason: shortness of breath or wheezing) Qty: 8.5 0RF Discharge Orders: Discharge Order (Routine); Ordered 09/25/22 Ordered By: Price Alejandro Referrals: [facility] [Outside] Lesa Donnelly MD [Physician] - 10/10/22 9:15 am Discharge Activity: Limit activity as instructed, Use walker/crutches as instructed and As per PT/OT instructions Patient Instructions: Celecoxib (By mouth), Oxycodone, Slow Release (By mouth), Closed Reduction Internal Fixation of Leg Fracture in Adults (GEN), Opioid Safety Activity Restrictions/Additional Instructions: Touchdown weightbearing right lower extremity secondary to proximal femur and ankle fracture on the right. Remove boot from right ankle daily for skin checks. Change dressing to right hip as needed. Keep wound covered. Follow-up with me in approximately 2 weeks. Discharge Attestations Time Spent in Discharge Care*: less than 30 min Quality Metrics Clinical Quality Measures [ No reported AMI, CVA or VTE this stay] Coding Level of Care Code Acute Code for [facility] Fwd Diagnoses Closed intertrochanteric fracture of right femur S72.141A Hypoxia R09.02 Hypertension I10
[2022-09-25 12:00] VITALS: BP 145/74; PULSE 89; RESP 18; TEMP 36.9; O2SAT 98
--- NOTE | 2022-09-25 12:13 | PC.SOCIAL ---
Pg 2 IMM Explained to pt Pg 2 IMM. No questions voiced. Provided pt a copy. Initialed, dated, & timed a copy & placed in chart.
--- NOTE | 2022-09-25 12:15 | P.PN_ITS ---
Subjective Subjective: Patient is up in the chair again. According to family, she was able to transfer to bedside commode with minimal assistance at this point. She remains touchdown weightbearing right lower extremity. This is complicated by the fact that she has a left total knee. Medications: Reviewed: Yes Medication Review Details: Generic Name Dose Route Start Last Admin Trade Name Freq PRN Reason Stop Dose Admin Acetaminophen 650 mg 09/22/22 01:46 09/23/22 08:38 Acetaminophen 32 5 Mg Tablet PO 650 mg Q6H PRN Administration Mild/Mod Pain Or Temp >/= 101 Acetaminophen 1,000 mg 09/22/22 20:00 09/24/22 11:40 Acetaminophen 50 0 Mg Tablet PO 1,000 mg Q8H GENNA Administration Atorvastatin Calci um 20 mg 09/22/22 09:00 09/24/22 07:53 Atorvastatin 40 Mg Tablet PO 20 mg DAILY GENNA Administration Celecoxib 200 mg 09/22/22 22:00 09/24/22 07:52 Celecoxib 200 Mg Capsule PO 200 mg Q12H GENNA Administration Clonidine HCl 0.3 mg 09/22/22 09:00 09/24/22 17:44 Clonidine 0.1 Mg Tablet PO Not Given BID GENNA Ceftriaxone Sodium 1,000 mg/ 50 mls @ 100 mls/ hr 09/22/22 02:00 09/24/22 01:54 Sodium Chloride IV Infused Q24H GENNA Infusion Protocol Azithromycin 500 m g/ Sodium 250 mls @ 250 mls /hr 09/22/22 02:00 09/24/22 02:49 Chloride IV Infused Q24H GENNA Infusion Protocol Insulin Human Lisp ro 0 unit 09/22/22 08:00 09/24/22 17:45 Insulin Lispro 1 00 Unit/1 Ml SUBCUT 8 unit WM&BEDTIME GENNA Administration Protocol Latanoprost 1 drop 09/22/22 21:00 09/23/22 21:32 Latanoprost 0.00 5% Op Soln 2.5 Ml Btl EYE-BOTH 1 drop BEDTIME GENNA Administration Levothyroxine Sodi um 88 mcg 09/22/22 09:00 09/24/22 07:51 Levothyroxine 88 Mcg Tablet PO 88 mcg DAILY GENNA Administration Metoprolol Succina te 200 mg 09/22/22 21:00 09/23/22 21:32 Metoprolol Succi efrain Er (24 Hr) 10 0 Mg Tablet PO Not Given BEDTIME GENNA Oxybutynin Chlorid e 10 mg 09/22/22 09:00 09/24/22 07:52 Oxybutynin Chlor pam Xl 5 Mg Tablet PO 10 mg DAILY GENNA Administration Vitals/I&O/Wt Last Vital Signs Temp 98.4 F 09/25/22 12:00 Pulse 89 09/25/22 12:00 Resp 18 09/25/22 12:00 BP 145/74 09/25/22 12:00 Pulse Ox 98 09/25/22 12:00 O2 Del Method 09/25/22 07:58 O2 Flow Rate 2 09/24/22 20:00 09/24/22 09/25/22 09/25/22 22:59 06:59 14:59 Intake Total 480 / 1080 300 / 1380 250 / 250 Output Total 650 / 650 1 / 651 Balance -170 / 430 299 / 729 250 / 250 Physical Exam Const: COMMON NORMALS: no acute distress, patient oriented x3 and alert GENERAL APPEARANCE: cooperative and comfortable NUTRITIONAL APPEARANCE: obese ORIENTATION/CONSCIOUSNESS: Yes awake HENMT: COMMON NORMALS: normocephalic and atraumatic HEAD & SCALP: normocephalic and atraumatic Eye: GENERAL EYE: appearance normal, both eyes and all related structures Chest: COMMONS NORMALS: normal inspection of the chest Resp: COMMON NORMALS: normal respiratory effort EFFORT & INSPECTION: Yes able to speak in complete sentences and Yes symmetric chest movement Extremity: RIGHT LOWER EXTREMITY: Yes hip joint (Hip dressing is in place. This will be changed prior to discharge.) Right hip: Yes inspection (Erythema improved with no significant swelling.), Yes palpation (Minimal to no tenderness to palpation.), Yes ROM (Not evaluated) and Yes neurovascular exam (Intact distally of DVT) and Yes foot & digits (Lateral tenderness to palpation.) Right ankle: Yes inspection (Boot In place) Neuro: COMMON NORMALS: patient oriented x3 SENSORIUM/ORIENTATION: Yes alert Psych: COMMON NORMALS: mental status grossly normal APPEARANCE: Yes grossly normal ATTITUDE: Yes calm and Yes engaged ATTENTION/CONCENTRATION: Yes attention grossly intact Skin: COMMON NORMALS: no rashes or lesions noted GENERAL SKIN EXAM: no rashes or lesions noted Urinary Catheter Management: Rolon: Cath Placed During This Visit: yes, but has since been removed by the nurse Reason for Continuing Indwelling Catheter: Decision to DC Catheter Urinary Catheter Date of Insertion: 09/21/22 Urinary Catheter Time of Insertion: 20:15 Date Urinary Catheter Removed: 09/24/22 Time Urinary Catheter Discontinued: 15:11 Data 09/25/22 05:13 09/25/22 05:13 A&P Assessment and plan (1) Closed intertrochanteric fracture of right femur: This 77-year-old woman was in her usual state of health when she fell at home suffering a right intertrochanteric hip fracture with proximal femoral shaft and subtrochanteric involvement. Patient underwent open reduction internal fixation of this fracture. Additionally, preoperatively, she commented that she had pain in her knee and also at her ankle and was concerned about this. Imaging studies therefore were obtained, and she was found to have a lateral malleolar fracture with minimal displacement. She is in a cam walker as treatment for this. Secondary to these multiple injuries, she is touchdown weightbearing only on her right lower extremity. (2) Subtrochanteric fracture of right femur: (3) Lateral malleolar fracture: Qualifiers: Encounter type: initial encounter Fracture type: closed Fracture alignment: nondisplaced Laterality: right Qualified Code(s): S82.64XA - Nondisplaced fracture of lateral malleolus of right fibula, initial encounter for closed fracture (4) Obesity (BMI 30-39.9): Attestations Medical Necessity Statement*: Awaiting placement to [facility] Coding Level of Care Code Acute Code for Chg Fwd Diagnoses Closed intertrochanteric fracture of right femur S72.141A Subtrochanteric fracture of right femur S72.21XA Lateral malleolar fracture S82.64XA Encounter type: initial encounter Fracture type: closed Fracture alignment: nondisplaced Laterality: right Obesity (BMI 30-39.9) E66.9
[2022-09-25 12:22] LABS: SARS Covid-2 Antigen negative (Negative)
--- NOTE | 2022-09-25 13:32 | PC.NURSE ---
report called to [facility].
[2022-09-25 15:11] VITALS: BP 145/74; PULSE 89; RESP 18; TEMP 36.9; O2SAT 98
== END 2022-09-25 14:00 | disposition skilled nursing facility (03) | DRG 482 ==
LOC: ER 09-22 00:24 → MEDSURG 09-22 00:45
PROVIDERS: Hospitalist; Specialist; Student in an Organized Health Care Education/Training Program; Admitting Provider Internal Medicine; Emergency Provider Emergency Medicine; PCP Family Medicine; Visit Provider Internal Medicine
PROC: 0QS606Z Reposition Right Upper Femur with Intramedullary Internal Fixation Device, Open Approach (ICD-10-PCS; CPT 27245; principal; 2022-09-22 12:30)
DX: S72.141A Displaced intertrochanteric fracture of right femur, initial encounter for closed fracture (principal); S82.61XA Displaced fracture of lateral malleolus of right fibula, initial encounter for closed fracture; W01.0XXA Fall on same level from slipping, tripping and stumbling without subsequent striking against object, initial encounter; I10 Essential (primary) hypertension; Z79.84 Long term (current) use of oral hypoglycemic drugs; Z85.3 Personal history of malignant neoplasm of breast; E11.9 Type 2 diabetes mellitus without complications; E78.5 Hyperlipidemia, unspecified; E03.9 Hypothyroidism, unspecified; Z85.72 Personal history of non-Hodgkin lymphomas; I72.8 Aneurysm of other specified arteries; Z90.12 Acquired absence of left breast and nipple; R91.8 Other nonspecific abnormal finding of lung field; M19.071 Primary osteoarthritis, right ankle and foot; M25.561 Pain in right knee; E66.9 Obesity, unspecified; Z68.34 Body mass index [BMI] 34.0-34.9, adult; R09.02 Hypoxemia; Z86.16 Personal history of COVID-19
CPT/HCPCS: 36415; 36416; 51702; 70450; 71045; 71260; 72125; 73502; 73552; 73562; 73590; 73610; 74177; 76000; 80048; 80053; 82962; 84145; 85025; 85610; 85730; 87426; 93005; 94664; 96372; 96374; 97110; 97161; 97165; 97530; 97535; 99285; C1713; J0131; J0456; J0690; J0696; J1100; J1170; J1644; J1815; J2270; J2405; J2704; J3010; J3370; J7030; J7050; Q9967

== ENCOUNTER → 2022-10-02 14:56 | Outpatient (BNVA) | payer MEDICARE, SELFPAY | PROVIDERS: PCP Family Medicine; Visit Provider Internal Medicine Pulmonary Disease | DX: R59.0 Localized enlarged lymph nodes (principal); R91.8 Other nonspecific abnormal finding of lung field; I51.89 Other ill-defined heart diseases; Z86.16 Personal history of COVID-19; Z92.3 Personal history of irradiation; Z85.72 Personal history of non-Hodgkin lymphomas | CPT/HCPCS: 99204 ==

== ENCOUNTER → 2022-10-11 09:26 | Outpatient (BNVA) | payer MEDICARE, SELFPAY | PROVIDERS: PCP Family Medicine; Visit Provider Nurse Practitioner Family | DX: Z98.890 Other specified postprocedural states (principal); S82.831A Other fracture of upper and lower end of right fibula, initial encounter for closed fracture; X58.XXXA Exposure to other specified factors, initial encounter | CPT/HCPCS: 73502; 99213 ==

== ENCOUNTER → 2022-10-25 12:55 | Outpatient (BNVA) | payer MEDICARE, SELFPAY | PROVIDERS: PCP Family Medicine; Visit Provider Nurse Practitioner Family | DX: S82.831D Other fracture of upper and lower end of right fibula, subsequent encounter for closed fracture with routine healing (principal); X58.XXXD Exposure to other specified factors, subsequent encounter | CPT/HCPCS: 73610; 99024; 99213 ==

== ENCOUNTER → 2022-11-22 13:12 | Outpatient (BNVA) | payer MEDICARE, SELFPAY | PROVIDERS: PCP Family Medicine; Visit Provider Nurse Practitioner Family | DX: T84.498A Other mechanical complication of other internal orthopedic devices, implants and grafts, initial encounter (principal); T84.84XA Pain due to internal orthopedic prosthetic devices, implants and grafts, initial encounter; Y79.2 Prosthetic and other implants, materials and accessory orthopedic devices associated with adverse incidents; S82.831A Other fracture of upper and lower end of right fibula, initial encounter for closed fracture; X58.XXXA Exposure to other specified factors, initial encounter; Z98.890 Other specified postprocedural states | CPT/HCPCS: 73502; 73610; 99214 ==

== ENCOUNTER 2022-11-27 10:45 | Outpatient (CLI) | payer MEDICARE, SELFPAY ==
--- NOTE | 2022-11-27 10:30 | CT_ITS ---
WS: [id number] CT RIGHT HIP, NONCONTRAST. HISTORY: HIP FRACTURE Technique: All CT scans at [facility] use at least one of these dose optimization techniques: automated exposure control; mA and/or kV adjustment per patient size (includes targeted exams where dose is matched to clinical indication); or iterative reconstruction. DLP: 779.41 mGy.cm COMPARISON: Radiograph 11/22/2022, prior radiograph 10/11/2022 Displaced partially healed fracture involving the intertrochanteric hip. Patient is status post pinni ng and short medullary randall placement through a RIGHT hip fracture. There is abundant callus formation but the hip fracture is significantly displaced along with displacement of the hardware since the pr ior study. There is separation of the proximal fracture. Seen on the sagittal views is anterior displ acement of proximal fragment with overlapping of the fracture fragments by at least 4 cm with abundan t callus formation. Orthopedic screw now extends into the lateral hip joint. Marked lucency surroundi ng the screws which may be due to loosening, displacement or infection. Widening of the fracture line measuring up to 4 mm. There is a large amount of inflammation surrounding the hip along with a fluid pocket extending laterally from the hip joint. The fluid collection extends measures 6.1 x 4.2 cm an d may be a postoperative tract. There is very minimal adjacent inflammation. Mild degenerative changes in the RIGHT SI joint. CT/CT hip RT wo con* [id number] IMPRESSION: 1. Status post RIGHT hip arthroplasty. Despite the hip arthroplasty widening o f the fracture line with significant displacement. The proximal fracture is ove rlapping the distal component and displaced anteriorly by greater than 4 cm. Ma rked callus formation surrounding the displaced hip fracture with abnormal posi tion of the gamma nail. Gamma nail is displaced and the tip extends into the hi p joint. 2. Marked widening and displacement original intertrochanteric fracture line. 3. Postoperative fluid collection extends laterally from the RIGHT hip measuri ng 6.1 x 4.2 cm.
== END 2022-11-27 10:46 | disposition home or self-care (01) ==
LOC: RAD 10:46
PROVIDERS: PCP Family Medicine; Visit Provider Nurse Practitioner Family
DX: S72.141A Displaced intertrochanteric fracture of right femur, initial encounter for closed fracture (principal); X58.XXXA Exposure to other specified factors, initial encounter; T84.498A Other mechanical complication of other internal orthopedic devices, implants and grafts, initial encounter; T84.84XA Pain due to internal orthopedic prosthetic devices, implants and grafts, initial encounter; Y79.2 Prosthetic and other implants, materials and accessory orthopedic devices associated with adverse incidents; Z98.890 Other specified postprocedural states; Z96.641 Presence of right artificial hip joint
CPT/HCPCS: 73700

== ENCOUNTER 2022-11-27 19:06 | Inpatient (IN) | payer MEDICARE, SELFPAY ==
[2022-11-23 14:23] LABS: Add Urine Microscopic? NO; Charge for UA Resulting for Rev
[2022-11-23 14:24] LABS: Basophils % 0.4 %; Eosinophils # 0.1 10^3/uL (0.0-0.8); Eosinophils % 1.4 %; Hematocrit 40.9 % (37.0-47.0); Hemoglobin 12.2 g/dL (11.5-15.3); Lymphocytes # 3.3 10^3/uL (0.8-4.8); Lymphocytes % 31.7 %; Mean Corpuscular HGB Conc 29.8 g/dL (30.0-36.0); Mean Corpuscular Volume 90.5 fl (81-99); Mean Platelet Volume 9.9 fL (7.4-10.4); Monocytes # 0.9 10^3/uL (0.2-0.9); Monocytes % 8.5 %; Neutrophils # 5.95 10^3/uL (1.8-7.7); Neutrophils % 57.7 %; Nucleated Red Blood Cells % 0 %; Platelet Count 279 10^3/cmm (130-400); Red Blood Count 4.52 10^6/uL (4.1-5.3); Red Cell Distribution Width 15.7 % (12.1-15.1); White Blood Count 10.3 10^3/uL (4.0-10.0)
--- NOTE | 2022-11-23 14:34 | P.ANESASSM_ITS ---
Pre-Anesthetic Assessment Height/Weight: Height 1.65 m Weight 90.718 kg Operation Date: 11/27/22 15:10 Proposed Procedures p REVISION BI POLAR ARTHROPLASTY WITH HARDWARE REMOVAL RIGHT HIP AND POSSIBLE CONVERSION TO TOTAL HIP ARTHROPLASTY. [id number], S82.839A Z98.890 T84.498A T84.84XA(Right) - Lesa Donnelly MD s ARDWARE REMOVAL RIGHT HIP(Right) - Lesa Donnelly MD s Total Hip Arthroplasty(Right) - Lesa Donnelly MD Familial anesthetic complications: none Was Beta Pankaj taken within 24 hours: N/A Was Clonidine taken within 24 hours: Yes Social No alcohol and No tobacco Exam alert, oriented x 3, clear to auscultation bilaterally and regular rate & rhythm Airway Submandibular: within normal limits Cervical ROM: within normal limits Mallampati: Class III Dentition: caps CV/HEM Anemia and Hypertension Metabolic Diabetes Mellitus, Hyperlipidemia, Morbid Obesity and Thyroid Disease Anesthetic Plan ASA status: 3 Anesthesia: Regional (specify below) (SAB) Medications/Allergies Home Medications Medication Instructions Recorded Confirmed Last Taken Type amlodipine 10 mg tablet 10 mg PO DAILY 08/22/22 11/23/22 11/23/22 History clonidine HCl 0.3 mg tablet 0.3 mg PO BEDTIME 08/22/22 11/22/22 11/22/22 History glipizide 10 mg tablet 10 mg PO DAILY 08/22/22 11/23/22 11/23/22 History latanoprost 0.005 % eye drops 1 drp ophthalmic (eye) BEDTIME 08/22/22 11/23/22 11/22/22 History levothyroxine 88 mcg tablet 88 mcg PO DAILY 08/22/22 11/23/22 11/23/22 History lisinopril 40 mg tablet 40 mg PO BID 08/22/22 11/23/22 11/23/22 History metformin 500 mg tablet,extended 1,000 mg PO BID 08/22/22 11/23/22 11/23/22 History release 24 hr metoprolol succinate 200 mg 200 mg PO BEDTIME 08/22/22 11/23/22 11/23/22 History tablet,extended release 24 hr oxybutynin chloride 10 mg 10 mg PO DAILY 08/22/22 11/23/22 11/23/22 History tablet,extended release 24 hr pioglitazone 45 mg tablet 45 mg PO DAILY 08/22/22 11/23/22 11/23/22 History semaglutide 7 mg tablet (Rybelsus) 7 mg PO DAILY 08/22/22 11/23/22 11/23/22 History simvastatin 10 mg tablet 10 mg PO QPM 08/22/22 11/23/22 11/23/22 History acetaminophen 500 mg tablet 1,000 mg PO Q8H PRN pain #30 tabs 09/25/22 11/23/22 11/23/22 Rx (Acetaminophen Pain Relief) celecoxib 200 mg capsule 200 mg PO BID PRN pain 10/02/22 11/22/22 11/23/22 History ferrous sulfate 325 mg (65 mg 325 mg PO BID 10/02/22 11/23/22 11/23/22 History iron) tablet insulin glargine 100 unit/mL (3 15 unit SUBCUT DAILY 10/02/22 11/23/22 11/22/22 History mL) subcutaneous pen (Lantus Solostar U-100 Insulin) Allergies Allergy/AdvReac Type Severity Reaction Status Date / Time No Known Allergies Allergy Verified 11/23/22 12:36 FOR[facility]LY [facility], [facility]–1983 Anesthesia Medical History Breast cancer Closed intertrochanteric fracture of right femur Diabetes mellitus Fall Hyperlipidemia Hypertension Hypothyroidism Hypoxia Injury of ankle, right Lateral malleolar fracture Lymphoma History of cutaneous lymphoma, 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 Obesity (BMI 30-39.9) Pain of right knee after injury Splenic artery aneurysm Subtrochanteric fracture of right femur Surgical History H/O left mastectomy History of carpal tunnel surgery History of cholecystectomy History of hysterectomy Family History Other Diabetes Hypertension Social History Smoking and tobacco status: never smoked Alcohol intake: never Data Anesthesia 11/23/22 13:18 11/23/22 13:18 Short CBC 11/23/22 Range/Units 13:18 WBC 10.3 H (4.0-10.0) 10^3/uL Hgb 12.2 (11.5-15.3) g/dL Hct 40.9 (37.0-47.0) % MCV 90.5 (81-99) fl Plt Count 279 (130-400) 10^3/cmm Neut % (Auto) 57.7 % Neut # (Auto) 5.95 (1.8-7.7) 10^3/uL Cardiac Studies: Echocardiogram 08/22/22
[2022-11-23 14:50] LABS: Alanine Aminotransferase 14 U/L (0-33); Albumin Level 4.3 g/dL (3.5-5.2); Alkaline Phosphatase 216 U/L (35-105); Anion Gap 18.4 (5-19); Aspartate Amino Transferase 19 U/L (0-32); Blood Urea Nitrogen 9 mg/dL (8-23); Calcium 9.2 mg/dL (8.5-10.5); Carbon Dioxide 24 mmol/L (22-29); Chloride 101 mmol/L (98-107); Globulin 3.6 g/dL (1.3-4.6); Glucose 134 mg/dL (65-115); Osmolality Calculated 289 mOsm/kg (285-295); Potassium 4.4 mmol/L (3.5-5.1); Sodium 139 mmol/L (136-145); Total Bilirubin 0.3 mg/dL (0.15-1.2); Total Protein 7.9 g/dL (6.6-8.7)
[2022-11-23 14:57] LABS: Blood Urine Neg (Negative); Glucose Urine UA Norm (Normal); Ketones Urine Negative (Negative); Nitrate Urine Negative (Negative); Protein Urine Neg (Negative); Specific Gravity, Urine 1.005 (1.005-1.030); Urine Appearance Clear (CLEAR); Urine Color Straw (Yellow); pH Urine 6.5 (5-7)
[2022-11-23 14:58] LABS: Bilirubin Urine Neg (Negative); Leukocyte Esterase Urine Negative (Negative); Urobilinogen Urine Norm (Negative)
[2022-11-27] VITALS (21 sets, daily range): BP systolic 141–174; BP diastolic 64–80; PULSE 68–78; RESP 13–22; TEMP 36.4–37.2; O2SAT 90–98; BMI 33.5
--- NOTE | 2022-11-27 14:12 | ANES.PAUD2 ---
Pre-Anesthetic Update Pre-Anesthetic Assessment: Date of Surgery/Procedure: 11/27/22 Proposed Procedure: Operation Date: 11/27/22 15:10 Proposed Procedures p REVISION BI POLAR ARTHROPLASTY WITH HARDWARE REMOVAL RIGHT HIP AND POSSIBLE CONVERSION TO TOTAL HIP ARTHROPLASTY. [id number] 33235, S82.839A Z98.890 T84.498A T84.84XA(Right) - Lesa Donnelly MD s ARDWARE REMOVAL RIGHT HIP(Right) - Lesa Donnelly MD s Total Hip Arthroplasty(Right) - Lesa Donnelly MD Any changes to Pre-Anesthetic Assessment?: No Last Intake: > 8hrs Vitals: Temperature 99.0 F 11/27/22 13:47 Temperature Source Temporal Artery S can 11/27/22 13:47 Pulse Rate 73 11/27/22 13:47 Pulse Rhythm Regular 11/27/22 13:55 Pulse Strength 3+ Normal 11/27/22 13:55 Respiratory Rate 16 11/27/22 13:47 Blood Pressure 174/74 11/27/22 13:47 Blood Pressure Jihan n 107 11/27/22 13:47 Pulse Oximetry 98 11/27/22 13:47 Oxygen Delivery Me thod Room Air 11/27/22 13:55 Exam: Pre-Anes Outpt Exam: alert, oriented x 3, clear to auscultation bilaterally and regular rate & rhythm Other Pertinent Information: Other Pertinent Information: MARCOS Cardiac Studies: Echocardiogram 08/22/22
[2022-11-27 14:36] LABS: Glucose Point of Care 150 mg/dL (70-110)
[2022-11-27] MEDS: acetaminophen 1,000 MG/100 ML PIGGYBACK 400 MG IV ×2 (14:45→23:22)
[2022-11-27] MEDS: sodium chloride 0.9% 1,000 ML 30 ML IV (14:45)
[2022-11-27] MEDS: CELEcoxib 200 mg Capsule 400 MG PO (14:45)
[2022-11-27] MEDS: gabapentin 300 mg Capsule PO (14:46)
--- NOTE | 2022-11-27 15:10 | P.HPUD_ITS ---
Surgery/Procedure H&P Update DATE OF PROCEDURE: November 27, 2022 DATE H&P PERFORMED: 11/22/22 H&P UPDATE INFORMATION: I have reviewed H&P completed within last 30 days, I have examined patient prior to procedure, No changes to prior documentation and H&P is in [facility] [place] [place] EMR on date indicated PLANNED PROCEDURE: Operation Date: 11/27/22 15:10 Proposed Procedures p REVISION BI POLAR ARTHROPLASTY WITH HARDWARE REMOVAL RIGHT HIP AND POSSIBLE CONVERSION TO TOTAL HIP ARTHROPLASTY. [id number], S82.839A Z98.890 T84.498A T84.84XA(Right) - Lesa Dnonelly MD s ARDWARE REMOVAL RIGHT HIP(Right) - Lesa Donnelly MD s Total Hip Arthroplasty(Right) - Lesa Donnelly MD Related Problem List Diagnoses (1) Closed intertrochanteric fracture of right femur: Qualifiers: Encounter type: sequela Fracture alignment: displaced Qualified Code(s): S72.141S - Displaced intertrochanteric fracture of right femur, sequela (2) Painful orthopaedic hardware:
[2022-11-27] MEDS: ceFAZolin 2,000 MG in sodium chloride 0.9% (plus) 50 ML 100 MG IV ×2 (15:13→23:39)
[2022-11-27] MEDS: ceFAZolin 1,000 mg SDV 2000 MG IRRIGATION (16:55)
[2022-11-27] MEDS: vancomycin 1,000 MG SDV 1000 MG XX (16:56)
--- NOTE | 2022-11-27 17:48 | XRR_ITS ---
PROCEDURE INFORMATION: Exam: XR Right Hip Exam date and time: 11/27/2022 5:59 PM Age: 77 years old Clinical indication: Device placement; Other: RT hip; Additional info: Portable hip xray in the or RT hip placement TECHNIQUE: Imaging protocol: Radiologic exam of the right hip. Views: 1 view hip with pelvis when performed. COMPARISON: CR XR hip RT 2-3V wo/w pel* [id number] 11/22/2022 1:25 PM FINDINGS: Bones/joints: Right hip fixation device noted in expected alignment. Soft tissues: Unremarkable. XR/XR hip RT 1V wo/w pel [id number] IMPRESSION: Right hip fixation device noted in expected alignment.
[2022-11-27] MEDS: ceFAZolin 1,000 mg SDV 1000 MG IVP (18:52)
--- NOTE | 2022-11-27 19:16 | XRR_ITS ---
PROCEDURE INFORMATION: Exam: XR Pelvis Exam date and time: 11/27/2022 7:21 PM Age: 77 years old Clinical indication: Hip pain; Right hip; Prior surgery; Surgery date: Post-operative (0-2 days); Surgery type: Revision; Additional info: Removal hardware with revision bipolar hip arthroplasty, low ap pelvis TECHNIQUE: Imaging protocol: Radiologic exam of the pelvis. Views: 1 or 2 view. COMPARISON: CR (PELVIS, ) 11/27/2022 5:59 PM FINDINGS: Bones/joints: Recently placed revised right hip arthroplasty in expected alignment. Soft tissues: Gas surrounding the right hip corresponding to recent surgical procedure. XR/XR pelvis 1-2V* [id number] IMPRESSION: Recently placed revised right hip arthroplasty in expected alignment.
[2022-11-27] MEDS: meperidine 50 mg/mL INJ 12.5 MG IVP (19:17)
--- NOTE | 2022-11-27 19:19 | P.OP_ITS ---
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 Painful hardware. 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 Painful hardware. Post-op findings: Apparent nonunion at fracture site. Large bursal sac. Very contracted right hip musculature. Procedure done: Revision bipolar hip arthroplasty following hardware removal Removal hardware right hip?intertrochanteric hip fracture Implants: Jackson zoroastrian modular hip system with a 155 mm x 17 mm diameter zoroastrian modular straight hip stem, a size 23 mm +0 V40 calcar replacement, a size 47 mm x 28 mm inner diameter universal head bipolar component with a +0 28 mm femoral head, V40. Specimens removed/disposition: Cultures obtained Pathology: none sent Surgeon: Lesa Donnelly Bus [employer] School: [employer] operating room technicians Anesthesia: General (Intubated, ASA 3) Estimated blood loss (mL): 1,000 IV fluids (mL): 2,600 (1000 mL blood, 1600 mL crystalloid) Urine output (mL): 400 Complications: None Findings: Large bursal sac. Nonunion at fracture site, or at least delayed union. Significantly contracted tissues around the proximal femur. Condition: stable Disposition: PACU (Been discharged to floor for postoperative rehabilitation and pain management) Brief History: This is a 77-year-old female patient who presents today for removal of painful hardware and revision to bipolar hip arthroplasty utilizing the zoroastrian modular total hip system. Patient underwent right trochanteric nail on September 22, 2022. She was seen in my office on October 11 and was doing well. She went to skilled facility after her surgical intervention, and was discharged in the middle of September to home. She also had a right fibular fracture which was treated in a boot. The patient was last seen in the office on November 22, and at that time, she was found to have hardware failure and penetration of the gamma nail through the femoral head into the hip joint. There was minimal protrusion of this. There is no obvious destruction of the acetabulum at the time she was seen in the office. She was told to avoid any weightbearing and to avoid range of motion is much as possible. She was scheduled for surgery today which was the next available operating day secondary to the holiday weekend. Risks and complications were discussed with the patient, and consents were signed. Questions were answered. Procedure: The patient was brought to the operating theater, and after undergoing adequate general anesthesia, ASA 3, intubated, she was transferred to the operating room table. The patient was placed in the full lateral position and held in place with the pegboard. Patient's right lower extremity was draped free and was subsequently prepped and further draped free. A surgical pause was performed prior to commencement of the surgical procedure. During the surgical pause, we confirmed the site and side of surgery as well as availability of equipment. Additionally, we confirmed preoperative surgical markings. X-rays are also reviewed during this time. Following the surgical pause, the patient's previous incision was entered. Proximally, we did have to deviate posteriorly to allow access to the hip joint. The incision was continued proximally and distally as necessary to allow access to the hip joint. Dissection continued through skin and soft tissues using a scalpel as well as electrocautery. Hemostasis was obtained using electrocautery. The patient had a very thick subcutaneous envelope. There was a large bursal sac over the hip joint as well. This fluid was cultured, but it was clear. Further dissection allowed removal of the lag screw after loosening and removal of the set screw from the gamma nail which was in place. The distal screw was left in place while the extractor was placed in position on the proximal nail after the lag screw and setscrew had been removed. Once this was tightened into position, the distal screw was removed and subsequently the nail was removed uneventfully. Nail tract was also cultured. Following removal of the nail which was through splitting incision through the gluteal muscles and the vastus lateralis, these muscles were closed with 2-0 Monocryl. Attention was then directed to the hip arthroplasty portion of the procedure. Plan was for a revision to bipolar utilizing the zoroastrian modular Latha hip system which is a revision system. It was very difficult to move the hip secondary to the size of the patient's leg and also to the contractures that she had around the hip. Initially, we dissected through skin and subcutaneous tissue. Tensor fascia lionel was identified and was incised longitudinally. This was retracted with a Charnley retractor. Of note, distally, when the lag screw was removed, there was a significant amount of bony tissue in the soft tissue which was visualized on one of the x-ray views. This was excised. Piriformis was identified and tagged. The remaining of the short external rotators were elevated off the posterior aspect aspect of the hip. Again, visualization was very difficult secondary to the patient's subcutaneous envelope and also to the contractures that she had at the hip. Capsule was then entered and this was entered in a T-type fashion. A suture was placed on each branch of this T. Following this, attempt was made to dislocate the hip. This was unsuccessful and the contracture was still quite significant. Further releases and manipulation allowed us to get the hip into a position where we could access the proximal femur. The femoral head was removed through an osteotomy using a saw. Once femoral head was removed, it was measured and evaluation of the acetabulum for a appropriate sized femoral head was accomplished. Trial femoral head sizes included 45 mm, 46 mm, and 47 mm. The 47 mm gave us the best stability within the acetabulum. Therefore, the chosen size was to be a 47 mm universal bipolar head with a 28 mm inner diameter. Attention was then directed to the proximal femur. The proximal femur was addressed with the canal finder and subsequently reamers. We reamed to a size 17 to allow the size 17 mm zoroastrian modular 155 mm stem to be impacted into position. Once this was placed, we used the proximal portion of the actual implant for appropriate jigs to ream the proximal aspect of the femur. This was accomplished up to a size 23. Therefore the zoroastrian modular size 23 mm trial was chosen with a +0 height. More height was not possible secondary to the tightness of the patient's soft tissues. The trial calcar replacing portion of the zoroastrian modular stem was placed in position and trial reductions were accomplished. Initially, we could not reduce a +0. Subsequently, we reduced with trials of -4 mm and subsequently +0 mm. We also everted the femoral neck to be approximately 20 degrees eversion to allow the best stability possible. Further stability could not be obtained from length secondary to the patient's significant contracture. Rotation was noted, the trials were removed, and the actual 23 mm x +0 height with a V40 taper was impacted into position and tightened down. A torque device was used to assure that it was adequately tightened. Onto this was then placed the 47 mm outer diameter with a 28 mm +0 femoral head. Reduction was again accomplished. The patient was stable at 90 degrees of flexion with 30 degrees of internal rotation as long as her leg did not cross neutral. Part of this was secondary to the weight of the patient's leg and the impact of hitting the other leg during maneuvers. Once this was reduced. Attention was directed to closure. The hip was copiously irrigated with normal saline and with normal saline containing Betadine which was subsequently irrigated out. The hip was reduced uneventfully and then irrigated with a Betadine solution followed by normal saline again. This was suctioned dry and 0 Vicryl was utilized to close the capsular tissues as well as reattach the piriformis. The piriformis reattachment was somewhat tenuous secondary to the new anatomy of the hip. Tensor fascia lionel was closed with 0 Vicryl in an interrupted fashion. Subcutaneous tissues were closed with a combination of 0 Vicryl and 2-0 Monocryl. The skin was then closed with skin tata followed by Silverlon dressing. The patient was returned to recovery room in satisfactory condition she will be discharged to the floor for postoperative rehabilitation and pain management. Related Problem List Diagnoses (1) Closed intertrochanteric fracture of right femur: (2) Painful orthopaedic hardware: (3) Nonunion of fracture:
[2022-11-27 19:20] LABS: Glucose Point of Care 168 mg/dL (70-110)
[2022-11-27] MEDS: fentaNYL 50 mcg/mL INJ 2mL IVP (19:32)
--- NOTE | 2022-11-27 20:00 | ANE.PACU2 ---
Inpatient post-anesthesia follow up: Airway intact: Yes Vital signs: Temperature 98.1 F Pulse Rate 72 Respiratory Rate 18 Blood Pressure 154/74 Pulse Oximetry 99 Oxygen Delivery Me thod Room Air Oxygen Flow Rate Fraction of Inspir ed Oxygen Hydration adequate: Yes Nausea and vomiting: No Pain level: 1 Mental status: Baseline
[2022-11-27] MEDS: latanoprost 0.005% Op Soln 2.5 mL Btl 1 DROP EYE-RIGHT (21:37)
[2022-11-27] MEDS: CELEcoxib 200 mg Capsule PO (21:38)
[2022-11-27] MEDS: oxyCODONE 5 mg IR Tab/Cap PO (21:38)
[2022-11-27] MEDS: chlorhexidine gluconate 0.12% UDC 15 mL 30 ML MUCOUS MEM (21:39)
--- NOTE | 2022-11-27 21:48 | PC.NURSE ---
MEDICATION HELD CALLED ORTHO PEDAL ASSEMBLER DR KIM WITH REGARD TO SCHEDULED BEDTIME MED ORDER. METOPROLOL SUCCINATE 200MG ER WAS ON AUG TO GIVE. PT POST OP HEART RATE WAS RANGING 65-72 AT TIME OF CALL, EXPRESSED CONCERN TO GIVE. DR KIM GAVE TELEPHONE READ BACK ORDER TO HOLD NIGHT TIME DOSE.
[2022-11-27 22:30] LABS: Glucose Point of Care 211 mg/dL (70-110)
[2022-11-28] VITALS (8 sets, daily range): BP systolic 136–154; BP diastolic 69–74; PULSE 72–84; RESP 16–20; TEMP 36.7–37.1; O2SAT 94–99
[2022-11-28] MEDS: oxyCODONE 5 mg IR Tab/Cap PO (01:23)
[2022-11-28] MEDS: oxyCODONE 5 mg IR Tab/Cap 10 MG PO ×3 (05:01→11:43)
[2022-11-28 05:37] LABS: Blood Urea Nitrogen 10 mg/dL (8-23); Calcium 8.9 mg/dL (8.5-10.5); Carbon Dioxide 23 mmol/L (22-29); Chloride 102 mmol/L (98-107); Glucose 187 mg/dL (65-115); Osmolality Calculated 288 mOsm/kg (285-295); Sodium 137 mmol/L (136-145)
[2022-11-28 05:44] LABS: Anion Gap 16.9 (5-19); Potassium 4.9 mmol/L (3.5-5.1)
[2022-11-28 05:52] LABS: Basophils # 0.1 10^3/uL (0.0-0.1); Basophils % 0.4 %; Hematocrit 39.1 % (37.0-47.0); Lymphocytes # 2.4 10^3/uL (0.8-4.8); Lymphocytes % 18.8 %; Mean Corpuscular HGB Conc 30.7 g/dL (30.0-36.0); Mean Corpuscular Hemoglobin 27.8 pg (28.0-34.0); Mean Corpuscular Volume 90.5 fl (81-99); Mean Platelet Volume 9.4 fL (7.4-10.4); Monocytes # 1.3 10^3/uL (0.2-0.9); Monocytes % 10.4 %; Nucleated Red Blood Cells % 0 %; Platelet Count 242 10^3/cmm (130-400); Red Blood Count 4.32 10^6/uL (4.1-5.3); Red Cell Distribution Width 15.4 % (12.1-15.1); White Blood Count 12.8 10^3/uL (4.0-10.0)
[2022-11-28] MEDS: acetaminophen 1,000 MG/100 ML PIGGYBACK 400 MG IV ×2 (06:03→13:57)
[2022-11-28] MEDS: gabapentin 300 mg Capsule PO (06:03)
[2022-11-28] MEDS: ceFAZolin 2,000 MG in sodium chloride 0.9% (plus) 50 ML 100 MG IV ×2 (06:30→13:58)
[2022-11-28 06:55] LABS: Glucose Point of Care 192 mg/dL (70-110)
[2022-11-28] MEDS: ferrous sulfate EC 325 mg Tablet PO (08:11)
[2022-11-28] MEDS: multivitamin therapeutic Tablet 1 TAB PO (08:11)
[2022-11-28] MEDS: aspirin 325 mg EC Tablet PO (08:11)
[2022-11-28] MEDS: cholecalciferol (vitamin D3) 1,000 unit Tablet 1000 UNIT PO (08:11)
[2022-11-28] MEDS: calcium carbonate 500 mg Chew Tablet 1000 MG PO (08:11)
[2022-11-28] MEDS: levothyroxine 88 mcg Tablet PO (08:11)
[2022-11-28] MEDS: iron polysaccharide complex 150 mg Capsule PO (08:12)
[2022-11-28] MEDS: lisinopril 20 mg Tablet 40 MG PO (08:12)
[2022-11-28] MEDS: oxybutynin 5 mg Tablet 10 MG PO (08:12)
[2022-11-28] MEDS: sennosides-docusate Tablet 2 TAB PO (08:13)
[2022-11-28] MEDS: amlodipine 10 mg Tablet PO (08:13)
[2022-11-28] MEDS: chlorhexidine gluconate 0.12% UDC 15 mL 30 ML MUCOUS MEM ×2 (09:35→13:25)
[2022-11-28] MEDS: CELEcoxib 200 mg Capsule PO (09:35)
[2022-11-28] MEDS: metformin XR 500 MG Tablet 1000 MG PO (09:36)
[2022-11-28] MEDS: pioglitazone 30 mg Tablet 45 MG PO (09:36)
--- NOTE | 2022-11-28 14:48 | P.DS_ITS ---
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 Painful hardware. Post-op findings: Apparent nonunion at fracture site. Large bursal sac. Very contracted right hip musculature. Procedure done: Revision bipolar hip arthroplasty following hardware removal Removal hardware right hip?intertrochanteric hip fracture Implants: [employer]cuer episcopalian modular hip system with a 155 mm x 17 mm diameter episcopalian modular straight hip stem, a size 23 mm +0 V40 calcar replacement, a size 47 mm x 28 mm inner diameter universal head bipolar component with a +0 28 mm femoral head, V40. (2) Closed intertrochanteric fracture of right femur: Status: Acute Qualifiers: Encounter type: sequela Fracture alignment: displaced Qualified Code(s): S72.141S - Displaced intertrochanteric fracture of right femur, sequela (3) Painful orthopaedic hardware: Status: Acute Reason for Visit Reason for Visit: T84.498A, T84.84XA Brief History: This is a 77-year-old female patient who presents for removal of painful hardware and revision to bipolar hip arthroplasty utilizing the episcopalian modular total hip system.? Patient underwent right trochanteric nail on September 22, 2022.? She was seen in my office on October 11 and was doing well. She went to skilled facility after her surgical intervention, and was discharged in the middle of September to home.? She also had a right fibular fracture which was t reated in a boot.? The patient was last seen in the office on November 22, and at that time, she was found to have hardware failure and penetration of the gamma nail through the femoral head into the hip joint.? There was minimal protrusion of this.? There is no obvious destruction of the acetabulum at the time she was seen in the office.? She was told to avoid any weightbearing and to avoid range of motion is much as possible.? She was scheduled for surgery today which was the next available operating day secondary to the holiday weekend.? Risks and complications were discussed with the patient, and consents were signed.? Questions were answered. Hospital Course Hospital Course Patient underwent the above surgery. She tolerated it well, but she did have significant pain postoperatively. The patient was admitted to the hospital for postoperative rehabilitation. She also required pain management. On the first postoperative day, the patient was doing well. She felt quite well as well. She was having minimal to no discomfort once her initial pain was under control. There was no evidence of DVT. Her dressing was dry and intact. This was a Silverlon dressing. In discussion with the patient and physical therapy, the decision was made to send the patient home on the first postoperative day. She will follow-up in the office as previously scheduled. Physical Exam Const: COMMON NORMALS: no acute distress, average body habitus, patient oriented x3 and alert GENERAL APPEARANCE: cooperative and comfortable ORIENTATION/CONSCIOUSNESS: Yes awake HENMT: COMMON NORMALS: normocephalic and atraumatic HEAD & SCALP: normocephalic and atraumatic Eye: GENERAL EYE: appearance normal, both eyes and all related structures Chest: COMMONS NORMALS: normal inspection of the chest Resp: COMMON NORMALS: normal respiratory effort EFFORT & INSPECTION: Yes able to speak in complete sentences and Yes symmetric chest movement Extremity: RIGHT LOWER EXTREMITY: Yes hip joint (Dressing was dry and intact.) Right hip: Yes palpation (Minimal tenderness to palpation.) and Yes neurovascular exam (Intact with no evidence of DVT.) Neuro: COMMON NORMALS: patient oriented x3 SENSORIUM/ORIENTATION: Yes alert Psych: COMMON NORMALS: mental status grossly normal APPEARANCE: Yes grossly normal ATTITUDE: Yes calm and Yes engaged ATTENTION/CONCENTRATION: Yes attention grossly intact Skin: COMMON NORMALS: no rashes or lesions noted GENERAL SKIN EXAM: no rashes or lesions noted Urinary Catheter Management: Rolon: Cath Placed During This Visit: yes, but has since been removed by the nurse Reason for Continuing Indwelling Catheter: Decision to DC Catheter Urinary Catheter Date of Insertion: 11/27/22 Urinary Catheter Time of Insertion: 15:25 Date Urinary Catheter Removed: 11/28/22 Time Urinary Catheter Discontinued: 06:30 Discharge Data Studies Completed and Pending Completed Studies During Hospitalization Category Date Time Status XR hip RT 1V wo/w pel [id number] Stat Exams 11/27/22 17:48 Completed XR pelvis 1-2V* [id number] Routine Exams 11/27/22 19:16 Completed Pending at discharge Category Date Time Status Anaerobic Culture Routine Lab 11/27/22 16:23 Results Anaerobic Culture Routine Lab 11/27/22 16:23 Results PRBC [Leukocyte Reduced RBC] Routine Lab 11/27/22 16:37 Results Type and Screen Routine Lab 11/27/22 16:37 Results Wound Culture and Gram Stain Routine Lab 11/27/22 16:23 Results Wound Culture and Gram Stain Routine Lab 11/27/22 16:23 Results Radiology Impressions Hip X-Ray 11/27/22 17:48 IMPRESSION: Right hip fixation device noted in expected alignment. Pelvis X-Ray 11/27/22 19:16 IMPRESSION: Recently placed revised right hip arthroplasty in expected alignment. Laboratory Results WBC 12.8 10^3/uL (4.0-10.0) H 11/28/22 05:35 Corrected WBC Cancelled 11/28/22 04:50 RBC 4.32 10^6/uL (4.1-5.3) 11/28/22 05:35 Hgb 12.0 g/dL (11.5-15.3) 11/28/22 05:35 Hct 39.1 % (37.0-47.0) 11/28/22 05:35 MCV 90.5 fl (81-99) 11/28/22 05:35 MCH 27.8 pg (28.0-34.0) L 11/28/22 05:35 MCHC 30.7 g/dL (30.0-36.0) 11/28/22 05:35 RDW 15.4 % (12.1-15.1) H 11/28/22 05:35 Plt Count 242 10^3/cmm (130-400) 11/28/22 05:35 MPV 9.4 fL (7.4-10.4) 11/28/22 05:35 Gran % Cancelled 11/28/22 04:50 Neut % (Auto) 70.0 % 11/28/22 05:35 Lymph % (Auto) 18.8 % 11/28/22 05:35 Park % (Auto) 10.4 % 11/28/22 05:35 Eos % (Auto) 0.0 % 11/28/22 05:35 Baso % (Auto) 0.4 % 11/28/22 05:35 Neut # (Auto) 9.00 10^3/uL (1.8-7.7) H 11/28/22 05:35 Lymph # (Auto) 2.4 10^3/uL (0.8-4.8) 11/28/22 05:35 [place] # (Auto) 1.3 10^3/uL (0.2-0.9) H 11/28/22 05:35 Eos # (Auto) 0.0 10^3/uL (0.0-0.8) 11/28/22 05:35 Baso # (Auto) 0.1 10^3/uL (0.0-0.1) 11/28/22 05:35 Absolute Gran (auto) Cancelled 11/28/22 04:50 Nucleated RBC % (auto) 0 % 11/28/22 05:35 Nucleated RBCs # 0.0 /100WBC 11/28/22 05:35 Sodium 137 mmol/L (136-145) 11/28/22 04:50 Potassium 4.9 mmol/L (3.5-5.1) 11/28/22 04:50 Chloride 102 mmol/L (98-107) 11/28/22 04:50 Carbon Dioxide 23 mmol/L (22-29) 11/28/22 04:50 Anion Gap 16.9 (5-19) 11/28/22 04:50 BUN 10 mg/dL (8-23) 11/28/22 04:50 Creatinine 0.6 mg/dL (0.5-0.9) 11/28/22 04:50 GFR Calculation Not Reportable 11/28/22 04:50 Glucose 187 mg/dL (65-115) H 11/28/22 04:50 POC Glucose 192 mg/dL (70-110) H 11/28/22 06:51 Calculated Osmolality 288 mOsm/kg (285-295) 11/28/22 04:50 Calcium 8.9 mg/dL (8.5-10.5) 11/28/22 04:50 Total Bilirubin 0.3 mg/dL (0.15-1.2) 11/23/22 13:18 AST 19 U/L (0-32) 11/23/22 13:18 ALT 14 U/L (0-33) 11/23/22 13:18 Alkaline Phosphatase 216 U/L (35-105) H 11/23/22 13:18 Total Protein 7.9 g/dL (6.6-8.7) 11/23/22 13:18 Albumin 4.3 g/dL (3.5-5.2) 11/23/22 13:18 Globulin 3.6 g/dL (1.3-4.6) 11/23/22 13:18 Urine Color Straw (Yellow) 11/23/22 13:27 Urine Appearance Clear (CLEAR) 11/23/22 13:27 Urine pH 6.5 (5-7) 11/23/22 13:27 Ur Specific [place] 1.005 (1.005-1.030) 11/23/22 13:27 Urine Protein Neg (Negative) 11/23/22 13:27 Urine Glucose (UA) Norm (Normal) 11/23/22 13:27 Urine Ketones Negative (Negative) 11/23/22 13:27 Urine Blood Neg (Negative) 11/23/22 13:27 Urine Nitrate Negative (Negative) 11/23/22 13:27 Urine Bilirubin Neg (Negative) 11/23/22 13:27 Urine Urobilinogen Norm mg/dL (Negative) 11/23/22 13:27 Ur Leukocyte Esterase Negative (Negative) 11/23/22 13:27 Blood Type O Positive 11/27/22 16:37 Rho(D) Type Positive 11/27/22 16:37 Antibody Screen Negative 11/27/22 16:37 Crossmatch See Detail 11/27/22 16:37 Vitals Last Vital Signs Temp 98.7 F 11/28/22 08:00 Pulse 84 11/28/22 08:21 Resp 16 11/28/22 11:43 BP 136/69 11/28/22 08:00 Pulse Ox 97 11/28/22 08:21 O2 Del Method Room Air 11/28/22 08:21 Discharge Plan Discharge Patient Disposition: Home Health Service Condition: Stable Prescriptions: New aspirin 325 mg Tablet,Delayed Release (Dr/Ec) 325 mg PO DAILY 30 Days Qty: 30 0RF celecoxib 200 mg Capsule 200 mg PO 1XD 30 Days Qty: 30 0RF gabapentin 300 mg Capsule 300 mg PO TID PRN (Reason: Pain) 30 Days Qty: 90 0RF oxycodone 5 mg Tablet 10 mg PO Q4H PRN (Reason: Moderate Pain) 7 Days Qty: 30 0RF Continued ferrous sulfate 325 mg (65 mg iron) tablet 325 mg PO BID insulin glargine [Lantus Solostar U-100 Insulin] 100 unit/mL (3 mL) insulin pen 15 unit SUBCUT QPM acetaminophen [Acetaminophen Pain Relief] 500 mg tablet 1,000 mg PO Q8H PRN (Reason: pain) Qty: 30 0RF latanoprost 0.005 % drops 1 drp ophthalmic (eye) BEDTIME oxybutynin chloride 10 mg tablet extended release 24hr 10 mg PO DAILY metoprolol succinate 200 mg tablet extended release 24 hr 200 mg PO BEDTIME glipizide 10 mg tablet 10 mg PO DAILY clonidine HCl 0.3 mg tablet 0.3 mg PO BEDTIME simvastatin 10 mg tablet 10 mg PO QPM pioglitazone 45 mg tablet 45 mg PO DAILY levothyroxine 88 mcg tablet 88 mcg PO DAILY amlodipine 10 mg tablet 10 mg PO DAILY lisinopril 40 mg tablet 40 mg PO BID metformin 500 mg tablet extended release 24 hr 1,000 mg PO BID Rybelsus 7 mg tablet 7 mg PO DAILY furosemide 20 mg tablet 20 mg PO DAILY calcium carbonate 500 mg calcium (1,250 mg) Tablet 500 mg PO DAILY vt-jf-[id number]-FA-Ca carb-vit K 18 mg iron-400 mcg-500 mg Tablet 1 tab PO DAILY Discharge Orders: Discharge Order (Routine); Ordered 11/28/22 Ordered By: Lesa Donnelly Referrals: Lesa Donnelly MD [Physician] - 12/11/22 8:30 am Discharge Diet: Advance as tolerated and Usual diet Discharge Activity: Limit activity as instructed, Use walker/crutches as instructed and As per PT/OT instructions Patient Instructions: Aspirin (By mouth), Gabapentin (By mouth), Oxycodone, Rapid Release (By mouth), Celecoxib (By mouth), Total Hip Replacement (GEN), Joint Replacement Stoplight, Opioid Safety Activity Restrictions/Additional Instructions: Posterior hip precautions. You may weight-bear as tolerated. Do not flex beyond 90 degrees. Do not internally rotate beyond 20 degrees. Ice to right hip. Discharge Attestations Time Spent in Discharge Care*: greater than 30 min Specific Discharge Activities: educating patient, documenting/other paperwork and evaluating patient/reviewing data Quality Metrics Clinical Quality Measures [ No reported AMI, CVA or VTE this stay] Coding Level of Care Code Acute Code for Chg Fwd Diagnoses Nonunion of fracture Closed intertrochanteric fracture of right femur S72.141S Encounter type: sequela Fracture alignment: displaced Painful orthopaedic hardware T84.84XA
== END 2022-11-28 17:53 | disposition home health service (06) | DRG 470 ==
LOC: MEDSURG 19:06
PROVIDERS: Admitting Provider Specialist; PCP Family Medicine; Visit Provider Specialist
PROC: 0SR90JZ Replacement of Right Hip Joint with Synthetic Substitute, Open Approach (ICD-10-PCS; CPT 27125; principal; 2022-11-27 14:40)
PROC: 0SR90JZ Replacement of Right Hip Joint with Synthetic Substitute, Open Approach (ICD-10-PCS; CPT 20680; 2022-11-27 14:40)
DX: T84.124A Displacement of internal fixation device of right femur, initial encounter (principal); Y79.8 Miscellaneous orthopedic devices associated with adverse incidents, not elsewhere classified; T84.84XA Pain due to internal orthopedic prosthetic devices, implants and grafts, initial encounter; Z79.4 Long term (current) use of insulin; Z79.84 Long term (current) use of oral hypoglycemic drugs; E11.9 Type 2 diabetes mellitus without complications
CPT/HCPCS: 36415; 36416; 51702; 72170; 73501; 73700; 80048; 80053; 81003; 82962; 85025; 86850; 86900; 86920; 87070; 87075; 87205; 97110; 97116; 97161; 97165; C1713; C1776; J0131; J0690; J1100; J2175; J2405; J2704; J3010; J3370; J3490; J7030; P9016

== ENCOUNTER → 2022-12-11 08:33 | Outpatient (BNVA) | payer MEDICARE, SELFPAY | PROVIDERS: PCP Family Medicine; Visit Provider Nurse Practitioner Family | DX: Z98.890 Other specified postprocedural states (principal); T84.84XD Pain due to internal orthopedic prosthetic devices, implants and grafts, subsequent encounter; Z79.2 Long term (current) use of antibiotics | CPT/HCPCS: 73502; 99024 ==

== ENCOUNTER → 2023-01-09 09:08 | Outpatient (BNVA) | payer MEDICARE, SELFPAY | PROVIDERS: PCP Family Medicine; Visit Provider Nurse Practitioner Family | DX: Z98.890 Other specified postprocedural states (principal); S72.141D Displaced intertrochanteric fracture of right femur, subsequent encounter for closed fracture with routine healing; X58.XXXD Exposure to other specified factors, subsequent encounter | CPT/HCPCS: 73502; 99024; 99213 ==

== ENCOUNTER 2023-01-22 17:58 | Emergency (ER) | payer MEDICARE, SELFPAY ==
--- NOTE | 2023-01-22 18:03 | XRR_ITS ---
PROCEDURE INFORMATION: Exam: XR Chest Exam date and time: 01/22/2023 6:12 PM Age: 77 years old Clinical indication: Shortness of breath; Additional info: Dyspnea TECHNIQUE: Imaging protocol: Radiologic exam of the chest. Views: 1 view. COMPARISON: CT chest abdpel w/*[id number] 09/21/2022 9:15 PM FINDINGS: Lungs: Emphysematous changes. Right mid lung calcified granuloma. Pleural spaces: Trace bilateral pleural effusions. Heart/Mediastinum: Unremarkable. No cardiomegaly. Bones/joints: Unremarkable. XR/XR chest 1V portable [id number] IMPRESSION: 1. Negative for infiltrate 2. Emphysematous changes. 3. Trace bilateral pleural effusions. 4. Right mid lung calcified granuloma.
--- NOTE | 2023-01-22 18:03 | ECG_ITS ---
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 Measurements Intervals [place] Rate: 83 P: 88 VT: 165 QRS: 60 QRSD: 81 T: 57 QT: 359 QTc: 423 Interpretive Statements SINUS RHYTHM VOLTAGE CRITERIA FOR LVH [MEETS CRITERIA IN ONE OF: R(aVL), S(V1), R(V5), R(V5/V6)+S(V1)] Compared to ECG 09/23/2022 23:12:56 No significant changes Electronically Signed On 01-22-2023 23:30:33 CDT by Satinder Mistry M.D. [id number]
[2023-01-22 18:10] VITALS: BP 145/62; PULSE 95; RESP 12; TEMP 36.7; O2SAT 96; BMI 33.9
--- NOTE | 2023-01-22 18:40 | ED_ITS ---
HPI - Dizziness General: Chief Complaint: Dizziness Stated Complaint: Phyllis sent for SOB, possible CHF Time Seen by Provider: 01/22/23 18:24 Source: patient Mode of arrival: ambulatory Limitations: no limitations History of Present Illness: HPI Narrative: 77-year-old female who states that she has history CHF she been having some increased leg swelling along with shortness of breath states shortness of breath got much worse this afternoon. She had some slight lightheadedness some pressure in her chest but states pressure is mild. She is resting comfortably here no distress. Denies any vomiting or diarrhea. Associated symptoms: Reports malaise; Denies chest pain, chills, headache(s), nausea or vomiting Review of Systems Const: Reports: fatigue and malaise; Denies: fever(s), chills, body aches or change in appetite Eyes: Denies: blurry vision or eye discomfort ENMT: Denies: throat pain or dental pain Card: Denies: chest pain Resp: Reports: dyspnea GI: Denies: abdominal pain, nausea, vomiting or diarrhea Musc: Denies: neck pain or back pain Skin/Breast: Denies: rash Neuro: Denies: headache(s) PFSH ED PFSH: Medical History Breast cancer Closed intertrochanteric fracture of right femur Diabetes mellitus Fall Hyperlipidemia Hypertension Hypothyroidism Hypoxia Injury of ankle, right Lateral malleolar fracture Lymphoma History of cutaneous lymphoma, 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 Obesity (BMI 30-39.9) Pain of right knee after injury Splenic artery aneurysm Subtrochanteric fracture of right femur Surgical History H/O left mastectomy History of carpal tunnel surgery History of cholecystectomy History of hysterectomy Family History Other Diabetes Hypertension Social History Smoking and tobacco status: never smoked Alcohol intake: never Physical Exam Const: COMMON NORMALS: no acute distress, patient oriented x3 and healthy appearing HENMT: COMMON NORMALS: normocephalic and atraumatic HEAD & SCALP: normocep halic and atraumatic Neck/C-Spine: COMMON NORMALS: full ROM and supple Chest: COMMONS NORMALS: normal inspection of the chest and normal palpation of entire chest wall Resp: COMMON NORMALS: normal respiratory effort, No retractions, No use of accessory muscles and clear to auscultation bilaterally AUSCULTATION: clear to auscultation bilaterally Cardio: COMMON NORMALS: regular rate, regular rhythm and No murmurs present (Cardio) RATE: regular rate RHYTHM: regular rhythm GI: COMMON NORMALS: Normal to inspection, nondistended, normoactive bowel s ounds present, Soft to palpation, non-tender and no masses PALPATION: Yes Soft to palpation Extremity: COMMON NORMALS: full ROM NARRATIVE EXTREMITY EXAM: 2+ edema to lower extremity Neuro: COMMON NORMALS: patient oriented x3, moves all extremities and no focal motor deficits Psych: COMMON NORMALS: mental status grossly normal, Normal thought process present and cooperative THOUGHT PROCESS: Normal thought process present Skin: COMMON NORMALS: no rashes or lesions noted and no wounds GENERAL SKIN EXAM: no rashes or lesions noted Course Vital Signs: Vital signs: Vital Signs Temperature 98.0 F 01/22/23 18:10 Pulse Rate 88 01/22/23 21:34 Respiratory Rate 18 01/22/23 21:34 Blood Pressure 173/104 01/22/23 21:34 Pulse Oximetry 98 01/22/23 21:34 Oxygen Delivery Me thod Room Air 01/22/23 21:34 MDM - Dizziness Medical Decision Making Patient presents for his leg edema along with some slight shortness of breath likely from her CHF her BNP is mildly elevated she is diuresed here with Lasix she is feeling improved I did inform her to double her Lasix dose at home over the next 5 days to follow-up with her PCP heart enzymes here are normal no signs of pneumonia she is return if worsening she understands agrees to plan. Medical Records I reviewed the patient's medical records. Lab Data I reviewed the patient's lab results. 01/22/23 18:29 01/22/23 18:29 Radiology Impressions Chest X-Ray 01/22/23 18:03 IMPRESSION: 1. Negative for infiltrate 2. Emphysematous changes. 3. Trace bilateral pleural effusions. 4. Right mid lung calcified granuloma. Laboratory Results WBC 9.9 10^3/uL (4.0-10.0) 01/22/23 18:29 RBC 3.88 10^6/uL (4.1-5.3) L 01/22/23 18: Hgb 10.8 g/dL (11.5-15.3) L 01/22/23 18: Hct 34.8 % (37.0-47.0) L 01/22/23 18: MCV 89.7 fl (81-99) 01/22/23 18: MCH 27.8 pg (28.0-34.0) L 01/22/23: MCHC 31.0 g/dL (30.0-36.0) 01/22/23 18: RDW 17.8 % (12.1-15.1) H 01/22/23: Plt Count 209 10^3/cmm (130-400) 01/22/23 18: MPV 9.7 fL (7.4-10.4) 01/22/23 18: Neut % (Auto) 77.7 % 01/22/23 18: Lymph % (Auto) 10.7 % 01/22/23 18: [place] % (Auto) 9.0 % 01/22/23 18: Eos % (Auto) 1.3 % 01/22/23 18: Baso % (Auto) 0.4 % 01/22/23: Neut # (Auto) 7.68 10^3/uL (1.8-7.7) 01/22/23: Lymph # (Auto) 1.1 10^3/uL (0.8-4.8) 01/22/23 18: [place] # (Auto) 0.9 10^3/uL (0.2-0.9) 01/22/23: Eos # (Auto) 0.1 10^3/uL (0.0-0.8) 01/22/23: Baso # (Auto) 0.0 10^3/uL (0.0-0.1) 01/22/23: Nucleated RBC % (auto) 0 % 01/22/23: Nucleated RBCs # 0.0 /100WBC 01/22/23 18: Sodium 136 mmol/L (136-145) 01/22/23 18: Potassium 4.5 mmol/L (3.5-5.1) 01/22/23 18: Chloride 103 mmol/L (98-107) 01/22/23 18: Carbon Dioxide 22 mmol/L (22-29) 01/22/23 18: Anion Gap 15.5 (5-19) 01/22/23 18: BUN 11 mg/dL (8-23) 01/22/23 18: Creatinine 0.7 mg/dL (0.5-0.9) 01/22/23 18: GFR Calculation Not Reportable 01/22/23 18: Glucose 213 mg/dL (65-115) H 01/22/23 18: Calculated Osmolality 288 mOsm/kg (285-295) 01/22/23 18: Calcium 8.6 mg/dL (8.5-10.5) 01/22/23 18: Total Bilirubin 0.7 mg/dL (0.15-1.2) 01/22/23 18: AST 69 U/L (0-32) H 01/22/23 18: ALT 47 U/L (0-33) H 01/22/23 18: Alkaline Phosphatase 126 U/L (35-105) H 01/22/23 18:29 Troponin T Baseline 14 ng/L (0-10) H 01/22/23 18: Troponin T 120 Minute 15.17 ng/L (0-10) H 01/22/23 20:57 Delta Troponin T 1.17 ABS# (0-10) 01/22/23 20:57 NT-Pro-B Natriuret Pep 820 pg/mL (0-450) H 01/22/23 18:29 Total Protein 7.0 g/dL (6.6-8.7) 01/22/23 18: Albumin 3.7 g/dL (3.5-5.2) 01/22/23 18: Globulin 3.3 g/dL (1.3-4.6) 01/22/23 18: Lipase 27 U/L (13-60) 01/22/23 18:29 EKG Data EKG 1: I personally reviewed and interpreted this EKG as follows: EKG interpretation date: 01/22/23 EKG interpretation time: 18:38 Interpretation: nsr hr [address] or t wave abnormalities qrs 81 qtc 399 EKG 2: I personally reviewed and interpreted this EKG as follows: EKG interpretation date: 01/22/23 EKG interpretation time: 20:11 Interpretation: nsr hr [address] or t wave abnormalities qrs 75 qtc 409 Discharge Plan Discharge Patient Disposition: Home Clinical Impression: CHF (congestive heart failure), Leg edema, Dyspnea Condition: Stable Prescriptions: No Action ferrous sulfate 325 mg (65 mg iron) tablet 325 mg PO BID insulin glargine [Lantus Solostar U-100 Insulin] 100 unit/mL (3 mL) insulin pen 15 unit SUBCUT QPM acetaminophen [Acetaminophen Pain Relief] 500 mg tablet 1,000 mg PO Q8H PRN (Reason: pain) Qty: 30 0RF latanoprost 0.005 % drops 1 drp ophthalmic (eye) BEDTIME oxybutynin chloride 10 mg tablet extended release 24hr 10 mg PO DAILY metoprolol succinate 200 mg tablet extended release 24 hr 200 mg PO BEDTIME glipizide 10 mg tablet 10 mg PO DAILY clonidine HCl 0.3 mg tablet 0.3 mg PO BEDTIME simvastatin 10 mg tablet 10 mg PO QPM pioglitazone 45 mg tablet 45 mg PO DAILY levothyroxine 88 mcg tablet 88 mcg PO DAILY amlodipine 10 mg tablet 10 mg PO DAILY lisinopril 40 mg tablet 40 mg PO BID metformin 500 mg tablet extended release 24 hr 1,000 mg PO BID Rybelsus 7 mg tablet 7 mg PO DAILY furosemide 20 mg tablet 20 mg PO DAILY calcium carbonate 500 mg calcium (1,250 mg) Tablet 500 mg PO DAILY wh-fb-uogr-FA-Ca carb-vit K 18 mg iron-400 mcg-500 mg Tablet 1 tab PO DAILY Discharge Orders: Discharge ED (Routine); Ordered 01/22/23 Ordered By: Sera Calixto Referrals: Miguel Dale MD [Primary Care Provider] - 1-3 days Discharge Diet: Advance as tolerated Discharge Activity: Resume usual activity Patient Instructions: Heart Failure (ED) Activity Restrictions/Additional Instructions: double lasix dose over next 5 days Coding Level of Care Code ED Guest Services Ambassador for Gerardo Ladd
[2023-01-22 18:43] LABS: Basophils % 0.4 %; Eosinophils # 0.1 10^3/uL (0.0-0.8); Eosinophils % 1.3 %; Hematocrit 34.8 % (37.0-47.0); Hemoglobin 10.8 g/dL (11.5-15.3); Lymphocytes # 1.1 10^3/uL (0.8-4.8); Lymphocytes % 10.7 %; Mean Corpuscular Hemoglobin 27.8 pg (28.0-34.0); Mean Corpuscular Volume 89.7 fl (81-99); Mean Platelet Volume 9.7 fL (7.4-10.4); Monocytes # 0.9 10^3/uL (0.2-0.9); Neutrophils # 7.68 10^3/uL (1.8-7.7); Neutrophils % 77.7 %; Nucleated Red Blood Cells % 0 %; Platelet Count 209 10^3/cmm (130-400); Red Blood Count 3.88 10^6/uL (4.1-5.3); Red Cell Distribution Width 17.8 % (12.1-15.1); White Blood Count 9.9 10^3/uL (4.0-10.0)
[2023-01-22] MEDS: FUROsemide 10 mg/mL SDV 4mL 40 MG IVP (18:53)
[2023-01-22 19:06] LABS: Troponin(5th) Baseline 14 ng/L (0-10)
[2023-01-22 19:15] LABS: Alanine Aminotransferase 47 U/L (0-33); Albumin Level 3.7 g/dL (3.5-5.2); Alkaline Phosphatase 126 U/L (35-105); Anion Gap 15.5 (5-19); Aspartate Amino Transferase 69 U/L (0-32); Blood Urea Nitrogen 11 mg/dL (8-23); Calcium 8.6 mg/dL (8.5-10.5); Carbon Dioxide 22 mmol/L (22-29); Chloride 103 mmol/L (98-107); Creatinine Clr Calc Pharmacy 68.5009; Globulin 3.3 g/dL (1.3-4.6); Glucose 213 mg/dL (65-115); Lipase 27 U/L (13-60); NT Pro B Type Natriuretic Pept 820 pg/mL (0-450); Osmolality Calculated 288 mOsm/kg (285-295); Potassium 4.5 mmol/L (3.5-5.1); Sodium 136 mmol/L (136-145); Total Bilirubin 0.7 mg/dL (0.15-1.2)
--- NOTE | 2023-01-22 20:11 | ECG_ITS ---
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 Measurements Intervals [place] Rate: 86 P: 82 FL: 164 QRS: 78 QRSD: 75 T: 72 QT: 365 QTc: 439 Interpretive Statements SINUS RHYTHM VOLTAGE CRITERIA FOR LVH [MEETS CRITERIA IN ONE OF: R(aVL), S(V1), R(V5), R(V5/V6)+S(V1)] MODERATE ST DEPRESSION [0.05+ mV ST DEPRESSION] Compared to ECG 01/22/2023 18:38:09 ST (T wave) deviation now present Electronically Signed On 01-22-2023 23:33:18 CDT by Satinder Mistry M.D. [id number]
[2023-01-22 20:55] VITALS: BP 158/61; PULSE 84; RESP 18; O2SAT 95
[2023-01-22 21:28] LABS: Troponin 5 2HR 15.17 ng/L (0-10)
[2023-01-22 21:30] LABS: Troponin 5 2HR Delta 1.17 ABS# (0-10)
[2023-01-22 21:34] VITALS: BP 173/104; PULSE 88; RESP 18; O2SAT 98
[2023-01-22 22:17] VITALS: BP 172/77; PULSE 96; RESP 23; O2SAT 93
== END 2023-01-22 22:19 | disposition home or self-care (01) ==
PROVIDERS: Nurse Practitioner Family; Emergency Provider Emergency Medicine; PCP Family Medicine
DX: I11.0 Hypertensive heart disease with heart failure (principal); I50.9 Heart failure, unspecified; R06.00 Dyspnea, unspecified; R60.0 Localized edema; Z79.84 Long term (current) use of oral hypoglycemic drugs; Z79.4 Long term (current) use of insulin; Z85.3 Personal history of malignant neoplasm of breast; E11.9 Type 2 diabetes mellitus without complications; E78.5 Hyperlipidemia, unspecified; Z85.72 Personal history of non-Hodgkin lymphomas
CPT/HCPCS: 36415; 71045; 80053; 83690; 83880; 84484; 85025; 93005; 96374; 99285; J1940

== ENCOUNTER 2023-02-20 13:23 | Outpatient (CLI) | payer MEDICARE, SELFPAY ==
--- NOTE | 2023-02-20 13:36 | USCV_ITS ---
Thelma Rm Age: 78 Gender: F : 1945 Exam Date: 02/20/2023 14:04 Ordering Phys: Miguel Dale MD Technologist: JULITO Exam Location: [facility] [place] Indication: BP: 134 / 70 HR: 76 Rhythm: Sinus Technical Quality: Adequate MEASUREMENTS (Male / Female) Normal Values 2D ECHO LVOT Diameter 2.0 cm LV Ejection Fraction MOD 2C 59.3 % LV Ejection Fraction 2C AL 58.9 % LA Diameter 3.3 cm LA Width 4.3 cm LA Height 5.1 cm RA Width 2.4 cm RA Height 4.8 cm Aorta at Sinotubular Diameter 1.4 cm IVC Diameter 1.5 cm M-MODE Aortic Annulus Diameter 2.5 cm LA Ao Ratio MM 1.3 MV E Point Septal Separation 1.0 cm DOPPLER AV Peak Velocity 196.0 cm/s LVOT Peak Velocity 115.0 cm/s AV Area Cont Eq vti 1.7 cm squared AV Area Cont Eq pk 1.8 cm squared MV Peak Velocity 149.0 cm/s MV Area PHT 5.0 cm squared Mitral E to A Ratio 1.7 MV E' Velocity 69.5 cm/s Mitral E to MV E' Ratio 12.0 Mitral E to LV E' Lateral Ratio 11.7 Mitral E to LV E' Septal Ratio 12.3 TR Peak Velocity 290.4 cm/s TR Peak Gradient 33.7 mmHg TR Mean Velocity 231.2 cm/s TR Mean Gradient 23.7 mmHg TR Velocity Time Integral 106.9 cm TV Peak E Velocity 56.0 cm/s Right Atrial Pressure 3.0 mmHg Pulmonary Artery Systolic Pressu 36.7 mmHg PV Peak Velocity 120.0 cm/s RV Acceleration Time 0.2 s RV Ejection Time 0.3 s RV AcT/ET 0.5 FINDINGS Left Ventricle Left LV is normal in size. LV systolic function is normal with EF of 55 to 60%. No regional wall motion abnormalities are seen. Right Ventricle Normal in size and function Right Atrium Normal in size Left Atrium Normal in size Mitral Valve Structurally normal mitral valve. Mild to moderate mitral regurgitation. Aortic Valve Structurally normal aortic valve. Mild aortic stenosis with aortic valve area of 1.68 cm2 and mean gradient of 9 mmHg. Mild aortic regurgitation Tricuspid Valve Mild tricuspid regurgitation. RVSP is 35 to 40 mmHg. This is consistent with mild pulmonary hypertension Pulmonic Valve Not well visualized Pericardium Normal Aorta Normal in size IVC Appears to be normal CONCLUSIONS LV systolic function is normal with EF 55 to 60%. Mild to moderate mitral regurgitation Mild aortic stenosis with aortic valve area of 1.68 cm2 and mean gradient of 9 mmHg. Mild aortic regurgitation Mild tricuspid regurgitation. Mild pulmonary hypertension Compared to prior echocardiogram from 08/22/2022, patient now has mild aortic stenosis Satinder Mistry MD (Electronically Signed) Final Date: 08 March 2023 13:28 S
== END 2023-02-20 13:24 | disposition home or self-care (01) ==
PROVIDERS: PCP Family Medicine; Visit Provider Family Medicine
DX: I50.9 Heart failure, unspecified (principal); I08.3 Combined rheumatic disorders of mitral, aortic and tricuspid valves; I27.20 Pulmonary hypertension, unspecified
CPT/HCPCS: 93306

== ENCOUNTER → 2023-03-21 15:07 | Outpatient (BNVA) | payer MEDICARE, SELFPAY | PROVIDERS: PCP Family Medicine; Visit Provider Physician Assistant | DX: Z98.890 Other specified postprocedural states (principal); S72.141D Displaced intertrochanteric fracture of right femur, subsequent encounter for closed fracture with routine healing; X58.XXXD Exposure to other specified factors, subsequent encounter | CPT/HCPCS: 73502; 99213 ==

== ENCOUNTER → 2023-03-25 13:38 | Outpatient (BNVA) | payer MEDICARE, SELFPAY | PROVIDERS: PCP Family Medicine; Visit Provider Internal Medicine | DX: R07.9 Chest pain, unspecified (principal); I50.30 Unspecified diastolic (congestive) heart failure; E11.9 Type 2 diabetes mellitus without complications | CPT/HCPCS: 93005; 99204 ==

== ENCOUNTER 2023-03-27 10:05 | Outpatient (CLI) | payer MEDICARE, SELFPAY ==
--- NOTE | 2023-03-27 10:15 | CT_ITS ---
WS: [id number] CT chest wo con [id number] HISTORY: 6 month f/u TECHNIQUE: Axial imaging performed through the thorax. Coronal and sagittal reformats are submitted. All CT scans at [facility] use at least one of these dose optimization techniques: automated exposure control; mA and/or kV adjustment per patient size (includes targeted exams where dose is mat ched to clinical indication); or iterative reconstruction. CONTRAST: None DLP: 380.56 mGy.cm COMPARISON: 09/21/2022 Lungs and central airway: Significant overall improvement since the prior study. The areas of groundg lass attenuation and consolidations have essentially resolved. No masslike consolidation. No nodules. No pneumonia. Groundglass opacifications are improved. Benign granuloma central RIGHT lung. Pleura: Normal. No pleural effusion. Heart and pericardium: Normal size heart with no pericardial effusion. Mediastinum and tasia: Benign mediastinal and hilar lymph nodes. No enlarging lymph nodes. Vessels: Moderate atherosclerotic disease within the aorta. No aneurysm. Normal sized pulmonary arter y. Chest wall and lower neck: Prior LEFT axillary lymph node dissection. LEFT mastectomy. Upper abdomen: Small hiatal hernia. Linear granulomata. Extensive calcification in the suprarenal aor ta. 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 Osseous structures: Osteopenia. Mild increase in thoracic kyphosis. No destructive bone lesions. IMPRESSION: 1. Significant improvement in overall aeration and appearance of the lungs since the prior examinatio n. Essentially resolved groundglass opacifications and consolidations. 2. No pleural effusions. No adenopathy. 3. Prior LEFT mastectomy. 4. Distal splenic artery calcified aneurysm, 2.5 cm stable.
== END 2023-03-27 10:06 | disposition home or self-care (01) ==
PROVIDERS: PCP Family Medicine; Visit Provider Internal Medicine Pulmonary Disease
DX: R91.8 Other nonspecific abnormal finding of lung field (principal); Z90.12 Acquired absence of left breast and nipple
CPT/HCPCS: 71250

== ENCOUNTER → 2023-04-05 10:29 | Outpatient (BNVA) | payer MEDICARE, SELFPAY | PROVIDERS: PCP Family Medicine; Visit Provider Internal Medicine Pulmonary Disease | DX: R59.0 Localized enlarged lymph nodes (principal); R91.8 Other nonspecific abnormal finding of lung field; I51.89 Other ill-defined heart diseases; Z86.16 Personal history of COVID-19; Z85.3 Personal history of malignant neoplasm of breast | CPT/HCPCS: 99214 ==

== ENCOUNTER 2023-05-02 14:23 | Outpatient (CLI) | payer MEDICARE, SELFPAY ==
--- NOTE | 2023-05-02 14:26 | CT_ITS ---
WS: [id number] CTA ABDOMEN TECHNIQUE: Noncontrast plus contrast enhanced CTA of the abdominal aorta with coronal and sagittal re formatted images and additional MIP Images. CLINICAL INFORMATION: Hypertensive disorder COMPARISON: None. DLP: 275.[address] scans at [facility] use at least one of these dose optimization techniques: automated e xposure control; mA and/or kV adjustment per patient size (includes targeted exams where dose is matc hed to clinical indication); or iterative reconstruction. FINDINGS: Prior LEFT mastectomy. Peripherally calcified distal splenic artery aneurysm unchanged measuring 2.5 x 2.2 cm. Dense splenic artery calcification. Normal caliber abdominal aorta. Celiac and SMA are patent. Calcification renal artery origins which remain patent. Mild bilateral renal artery stenosis. REECE is patent. Lung bases are well aerated. Normal GE junction. Adrenal glands are normal. Normal renal parenchymal enhancement. No hydronephrosis. Tiny fat-containi ng umbilical hernia. Disc osteophyte complexes L4-L5 and L5-S1 with moderate to severe central canal stenosis worse at L4-5. Prior cholecystectomy. IMPRESSION: 1. 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 2. Prior cholecystectomy. 3. No abdominal aortic aneurysm. 4. Moderate to severe central canal stenosis L4-L5 due to disc osteophyte complex. This could be fur ther evaluated with MRI.
[2023-05-02] MEDS: iohexol 350 mg/mL 500 mL Btl (per mL) IV (14:50)
== END 2023-05-02 14:24 | disposition home or self-care (01) ==
LOC: RAD 14:24
PROVIDERS: PCP Family Medicine; Visit Provider Family Medicine
DX: I10 Essential (primary) hypertension (principal); I70.8 Atherosclerosis of other arteries; Z90.49 Acquired absence of other specified parts of digestive tract; M48.061 Spinal stenosis, lumbar region without neurogenic claudication
CPT/HCPCS: 74175; Q9967

== ENCOUNTER → 2023-06-06 13:52 | Outpatient (BNVA) | payer MEDICARE, SELFPAY | PROVIDERS: PCP Family Medicine; Visit Provider Nurse Practitioner | DX: M70.61 Trochanteric bursitis, right hip; S72.141S Displaced intertrochanteric fracture of right femur, sequela; Z96.641 Presence of right artificial hip joint; X58.XXXS Exposure to other specified factors, sequela | CPT/HCPCS: 73502; 99214 ==

== ENCOUNTER → 2023-09-05 14:25 | Outpatient (BNVA) | payer MEDICARE, SELFPAY | PROVIDERS: PCP Family Medicine; Visit Provider Nurse Practitioner | DX: M70.61 Trochanteric bursitis, right hip (principal); S72.141S Displaced intertrochanteric fracture of right femur, sequela; Z96.641 Presence of right artificial hip joint; X58.XXXS Exposure to other specified factors, sequela | CPT/HCPCS: 99213 ==

== ENCOUNTER → 2023-09-23 14:44 | Outpatient (BNVA) | payer MEDICARE, SELFPAY | PROVIDERS: PCP Family Medicine; Visit Provider Internal Medicine | DX: I11.0 Hypertensive heart disease with heart failure (principal); I50.30 Unspecified diastolic (congestive) heart failure; E11.9 Type 2 diabetes mellitus without complications; Z79.4 Long term (current) use of insulin | CPT/HCPCS: 36415; 80048; 83880; 99214 ==

== ENCOUNTER 2023-10-07 08:47 | Outpatient (CLI) | payer MEDICARE, SELFPAY ==
--- NOTE | 2023-10-07 | ECG_ITS ---
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 Interpretive Statements NAME OF STUDY: LEXISCAN SESTAMIBI STRESS TEST INDICATION: [Chest Pain; Shortness of Breath, ] Procedure: At the baseline, the blood pressure was 162/68 mmHg with a heart rate of 82 bpm. The electrocardiogram showed normal sinus rhythm, normal axis with normal ST and T's. The Lexiscan was infused over a period of 20 seconds. A total of 0.4 mg of Lexiscan was infused. The stress phase was continued for a total of 5 minutes. Heart rate was at the end of stress phase was 88 bpm and a blood pressure of 159/57 mmHg. The EKG at the peak infusion revealed normal sinus rhythm with no significant ST-T wave changes. Sestamibi was injected 20 seconds after the Lexiscan infusion. Blood pressure at the end of recovery phase was 150/53 mmHg with a heart rate of 85 bpm. Conclusion: 1. Normal EKG response to Lexiscan infusion 2. No Lexiscan induced chest pain or cardiac arrhythmia. 3. Normal blood pressure and heart rate response. 4. Sestamibi/sestamibi perfusion scan pending; see separate report. Electronically Signed On 10-17-2023 12:04:20 CDT by Satinder Mistry M.D. [id number]
[2023-10-07 09:33] VITALS: BMI 32.3
--- NOTE | 2023-10-07 09:33 | NMCV_ITS ---
NM herber perf SPECT r/s* [id number] Thelma Rm Age: 78 Gender: F : 1945 Exam Date: 10/07/2023 10:27 Ordering Phys: Satinder Mistry M.D ([email or web address]) Technologist: AMY Tatum Exam Location: [facility] Indications: CHEST PAIN STRESS TEST Please see separate stress test report in [facility] for full findings IMAGE PROTOCOL Rest/Stress 1 Lexiscan Day Radiopharmaceutical Dose (mCi) Administration Site Administered by Rest: Tc-99m 10.2 IV AMY Khan Sestamibi Stress:Tc-99m 32.5 IV AMY Khan Sestamibi Rest: 07-Oct-2023 60 Discovery 630 Stress: 07-Oct-2023 30 Discovery 630 0.4mg Lexiscan. Supine position only as patient was unable to lay prone. SPECT RESULTS Technical Quality: Excellent Raw Data Analysis: Normal Image Corrections: No attenuation or motion correction applied Summed Stress Score: 0 Summed Rest Score: 2 Summed Difference Score: 0 PERFUSION FINDINGS SPECT images demonstrate homogeneous tracer distribution throughout the myocardium. FUNCTIONAL RESULTS (calculated via Gated SPECT) Stress Image LV EF (%): 65 Stress EDV (mL):85 TID: 1.04 Stress ESV (mL):30 FUNCTIONAL FINDINGS: There is normal left ventricular systolic function. IMPRESSIONS 1. Normal myocardial perfusion imaging with no evidence of ischemia 2. LV systolic function is normal Satinder Mistry MD (Electronically Signed) Final Date: 07 October 2023 14:36 S
[2023-10-07] MEDS: regadenoson 0.4 Mg/5 ml Syringe 0.400000000000000022 MG IVP (11:08)
[2023-10-07 11:46] VITALS: BP 150/53; PULSE 83
== END 2023-10-07 08:48 | disposition home or self-care (01) ==
PROVIDERS: PCP Family Medicine; Visit Provider Internal Medicine
DX: R07.9 Chest pain, unspecified (principal)
CPT/HCPCS: 36415; 78452; 93017; 96374; A9500; J2785

== ENCOUNTER → 2024-03-25 15:10 | Outpatient (BNVA) | payer MEDICARE, SELFPAY | PROVIDERS: PCP Family Medicine; Visit Provider Internal Medicine | DX: I35.0 Nonrheumatic aortic (valve) stenosis (principal); I11.0 Hypertensive heart disease with heart failure; I50.30 Unspecified diastolic (congestive) heart failure; E11.9 Type 2 diabetes mellitus without complications; Z79.4 Long term (current) use of insulin | CPT/HCPCS: 99214 ==

== ENCOUNTER 2024-04-10 08:20 | Outpatient (CLI) | payer MEDICARE, SELFPAY ==
--- NOTE | 2024-04-10 08:30 | USCV_ITS ---
Thelma Rm Age: 79 Gender: F : 1945 Exam Date: 04/10/2024 08:33 Ordering Phys: Satinder Mistry M.D ([email or web address]) Technologist: Librado Douglass [place] [facility] [place]: aos BP: 150 / 74 HR: 62 Rhythm: Sinus Technical Quality: Adequate MEASUREMENTS (Male / Female) Normal Values 2D ECHO LV Diastolic Diameter PLAX 5.5 cm 4.2 - 5.9 / 3.9 - 5.3 cm IVS Diastolic Thickness 1.0 cm 0.6 - 1.0 / 0.6 - 0.9 cm IVS Systolic Thickness 1.2 cm LVPW Diastolic Thickness 1.1 cm 0.6 - 1.0 / 0.6 - 0.9 cm LVPW Systolic Thickness 2.0 cm LVOT Diameter 2.0 cm LV Ejection Fraction 2D Teich 72.4 % LV Ejection Fraction MOD 4C 58.1 % LV Ejection Fraction MOD 2C 60.6 % LV Ejection Fraction 2C AL 59.8 % LA Diameter 3.7 cm RA Systolic Volume 4C AL 19.1 ml RA Systolic Volume 4C MOD 19.4 ml LA Sys Volume AL 75.6 cm cubed LA Sys Volume Index AL 35.4 cm cubed/m squared Aorta at Sinotubular Diameter 1.7 cm IVC Diameter 2.0 cm M-MODE LA Ao Ratio MM 2.0 AV Cusp Separation MM 1.1 cm DOPPLER AV Peak Velocity 193.0 cm/s LVOT Peak Velocity 115.0 cm/s AV Area Cont Eq vti 1.9 cm squared AV Area Cont Eq pk 1.9 cm squared MV Peak Velocity 132.0 cm/s MV Area PHT 4.2 cm squared Mitral E to A Ratio 2.1 TV Peak Velocity 328.8 cm/s TR Peak Velocity 370.0 cm/s TR Peak Gradient 54.8 mmHg TR Mean Velocity 290.0 cm/s TR Mean Gradient 36.7 mmHg TR Velocity Time Integral 99.6 cm PV Peak Velocity 130.7 cm/s RV Ejection Time 0.3 s FINDINGS Left Ventricle Normal left ventricular size, systolic function and wall thickness, with no regional wall motion abnormalities. Left ventricular ejection fraction is estimated at 60 %. Grade II/IV diastolic dysfunction, moderately elevated filling pressures. Right Ventricle The right ventricle is normal in size and function. RVSP could not be calculated due to incomplete tricuspid regurgitation velocity profile. Right Atrium The right atrium is normal in size. Left Atrium Moderately increased left atrial size. Mitral Valve Moderately thickened mitral valve. Mitral annular calcification. Trace mitral valve regurgitation. Aortic Valve Moderate aortic valve calcification. No aortic valve stenosis. Trace aortic valve regurgitation. Tricuspid Valve Thickened tricuspid valve.trace tricuspid valve regurgitation. Pulmonic Valve Structurally normal pulmonic valve without significant stenosis. There is no pulmonic regurgitation. Pericardium Normal pericardium without effusion. Aorta Normal ascending aorta dimension. IVC The inferior vena cava appears normal. CONCLUSIONS Normal left ventricular size, systolic function and wall thickness, with no regional wall motion abnormalities. Left ventricular ejection fraction is estimated at 60 %. Grade II/IV diastolic dysfunction, moderately elevated filling pressures. Moderately increased left atrial size. No significant valve abnormalities. Right atrial pressure is around 5 mm of mercury. Laura Falk MD (Electronically Signed) Final Date: 10 April 2024 12:14 S
== END 2024-04-10 08:21 | disposition home or self-care (01) ==
LOC: RAD 08:21
PROVIDERS: PCP Family Medicine; Visit Provider Internal Medicine
DX: I35.0 Nonrheumatic aortic (valve) stenosis (principal); I50.30 Unspecified diastolic (congestive) heart failure; I51.7 Cardiomegaly; I36.8 Other nonrheumatic tricuspid valve disorders; I34.81 Nonrheumatic mitral (valve) annulus calcification
CPT/HCPCS: 93306

== ENCOUNTER → 2025-01-12 14:23 | Outpatient (BNVA) | payer MEDICARE, SELFPAY | PROVIDERS: PCP Family Medicine; Visit Provider Internal Medicine | DX: I11.0 Hypertensive heart disease with heart failure (principal); I50.30 Unspecified diastolic (congestive) heart failure; E11.9 Type 2 diabetes mellitus without complications; Z79.84 Long term (current) use of oral hypoglycemic drugs; R07.89 Other chest pain | CPT/HCPCS: 99214 ==

== ENCOUNTER 2025-02-03 06:01 | Outpatient (CLI) | payer MEDICARE, SELFPAY ==
--- NOTE | 2025-02-03 06:15 | USCV_ITS ---
Thelma Rm Age: 79 Gender: F : 1945 Exam Date: 02/03/2025 06:21 Ordering Phys: Satinder Mistry M.D ([email or web address]) Technologist: Exam Location: [facility] [place] Indication: cp sob BP: 120 / 80 HR: 68 Rhythm: Sinus Technical Quality: Adequate MEASUREMENTS (Male / Female) Normal Values 2D ECHO LV Diastolic Diameter PLAX 4.5 cm 4.2 - 5.9 / 3.9 - 5.3 cm IVS Diastolic Thickness 1.1 cm 0.6 - 1.0 / 0.6 - 0.9 cm IVS Systolic Thickness 1.9 cm LVPW Diastolic Thickness 1.3 cm 0.6 - 1.0 / 0.6 - 0.9 cm LVPW Systolic Thickness 1.5 cm LVOT Diameter 1.8 cm LV Ejection Fraction 2D Teich 63.0 % LV Ejection Fraction MOD 4C 59.8 % LV Ejection Fraction MOD 2C 62.9 % LV Ejection Fraction 2C AL 63.2 % LA Diameter 4.1 cm RA Systolic Volume 4C AL 30.9 ml RA Systolic Volume 4C MOD 30.5 ml Aorta at Sinotubular Diameter 2.7 cm M-MODE LA Ao Ratio MM 1.5 AV Cusp Separation MM 2.4 cm DOPPLER AV Peak Velocity 186.0 cm/s LVOT Peak Velocity 122.0 cm/s AV Area Cont Eq vti 1.6 cm squared AV Area Cont Eq pk 1.7 cm squared MV Peak Velocity 164.0 cm/s MV Area PHT 3.9 cm squared Mitral E to A Ratio 2.8 TR Peak Velocity 340.0 cm/s TR Peak Gradient 46.2 mmHg TV Peak E Velocity 110.0 cm/s PV Peak Velocity 117.0 cm/s FINDINGS Left Ventricle Left ventricle is normal size. LV systolic function normal with EF of 55-60%. No regional wall abnormalities are seen. Right Ventricle Normal in size and function Right Atrium Normal in size Left Atrium Normal in size Mitral Valve Structurally normal mitral valve. Mild to moderate mitral regurgitation. Aortic Valve Structurally normal aortic valve. No significant stenosis or regurgitation. Tricuspid Valve Mild tricuspid regurgitation. RVSP is 45-50 mmHg. Moderate pulmonary hypertension. Pulmonic Valve Not well visualized Pericardium Normal Aorta Normal in size IVC Not visualized CONCLUSIONS LV systolic function is normal with EF of 55-60% Mild to moderate mitral regurgitation. Mild tricuspid regurgitation. Moderate pulmonary hypertension. Satinder Mistry MD (Electronically Signed) Final Date: 03 February 2025 11:35 S
== END 2025-02-03 06:02 | disposition home or self-care (01) ==
LOC: RAD 06:01
PROVIDERS: PCP Family Medicine; Visit Provider Internal Medicine
DX: I34.0 Nonrheumatic mitral (valve) insufficiency (principal); I27.20 Pulmonary hypertension, unspecified; R07.9 Chest pain, unspecified; R06.02 Shortness of breath
CPT/HCPCS: 93306